=== PATIENT | female | born 1940 | race Caucasian/White ===

== ENCOUNTER 2019-05-22 11:11 | Outpatient (CLI) | payer MEDICARE, SELFPAY ==
[2019-05-22 13:20] LABS: Blood Urea Nitrogen 27 mg/dL (7-17); Calcium 9.2 mg/dL (8.4-10.2); Carbon Dioxide 25 mmol/L (22-30); Chloride 102 mmol/L (98-107); Estimated Glomerular Filt Rate > 60; Glucose 160 mg/dL (65-105); Potassium 3.3 mmol/L (3.4-5.0); Sodium 138 mmol/L (137-145)
== END 2019-05-22 11:12 | disposition home or self-care (01) ==
LOC: ANHWCLAB 11:15
PROVIDERS: PCP Family Medicine; Visit Provider Internal Medicine Endocrinology, Diabetes & Metabolism
DX: E11.9 Type 2 diabetes mellitus without complications (principal)
CPT/HCPCS: 36415; 80048

== ENCOUNTER 2021-10-09 01:35 | Inpatient (IN) | payer MEDICARE, SELFPAY ==
[2021-10-09] VITALS (58 sets, daily range): BP systolic 85–152; BP diastolic 50–102; PULSE 74–133; RESP 16–33; TEMP 36.1–36.8; O2SAT 93–100; BMI 29.2
--- NOTE | ~2021-10-09 | XR_ITS ---
XR chest 1V portable 10/12/2021 16:09 Indication: Assess CHF Procedure: AP portable chest Comparison: Comparison to multiple prior studies sequentially, with oldest reviewed study dated 08/16. Findings: Heart size normal. Bilateral interstitial infiltrates of the mid and lower lungs. No pleura l effusion. No pneumothorax. No acute osseous abnormality. Impression: 1: Bilateral interstitial infiltrates of the mid and lower lungs which may represent mild edema or pn eumonia. Reviewed, dictated and finalized at location A. Impression: 1: Bilateral interstitial infiltrates of the mid and lower lungs which may repr esent mild edema or pneumonia.
--- NOTE | ~2021-10-09 | XR_ITS ---
XR chest 1V portable DATE: 10/09/2021 02:14 INDICATION: Shortness of breath TECHNIQUE: Portable AP chest on 10/09/2021 at 0209 hours COMPARISON: 03/04/2016 PA and lateral chest FINDINGS: There is pulmonary vascular congestion. There is mild prominence of minor fissure consisten t with subpleural edema. Bilateral Maru B-lines, likely due to pulmonary edema. Bilateral predomina ntly mid and particularly lower lung zone infiltrates which may be due to pulmonary edema. Pneumonia or aspiration pneumonitis are not excluded. Borderline heart size. Small pleural effusions. No pneumothorax. Diffuse osteopenia. IMPRESSION: Pulmonary vascular congestion, subpleural and pulmonary interstitial edema and bilateral primarily central and lower lung infiltrates, suggesting some edema. Pneumonia and aspiration pneumon itis are not excluded. Reviewed, dictated and finalized at location A. IMPRESSION: Pulmonary vascular congestion, subpleural and pulmonary interstitia l edema and bilateral primarily central and lower lung infiltrates, suggesting some edema. Pneumonia and aspiration pneumonitis are not excluded.
--- NOTE | 2021-10-09 01:38 | ECG_ITS ---
Measurements Intervals [place] Rate: 76 P: 73 AR: 191 QRS: 3 QRSD: 102 T: 67 QT: 371 QTc: 418 Interpretive Statements SINUS RHYTHM NONSPECIFIC ST ABNORMALITY NO PREVIOUS ECG AVAILABLE FOR COMPARISON Electronically Signed On 10-09-2021 7:23:11 CDT by Wali Simmons M.D.
--- NOTE | 2021-10-09 01:52 | PC.NURSE ---
Patient o2 decreased to 86% on RA, placed on 2L via NC and her O2 increased to 90% so O2 increased to 4L and O2 increased to 96%. ERP aware.
--- NOTE | 2021-10-09 02:14 | ED.GENADULT ---
HPI - General Adult General Chief complaint: Shortness of Breath/Dyspnea Stated complaint: SOB Time Seen by Provider: 10/09/21 01:46 History of Present Illness HPI narrative: This is an 81-year-old female presenting ED with shortness of breath. Patient says she had a CVA 3 weeks ago. She has been doing well since then but starting say she started having trouble breathing and associated with chest tightness. She has taken albuterol inhalers at home with no benefit. The patient denies fever, chills, productive cough, lower extremity edema, history of blood clots, recent trauma or surgery or any history of cancer. Related Data Home Medications Medication Instructions Recorded Confirmed aspirin 81 mg tablet,delayed 81 mg PO DAILY 01/16/19 09/19/21 release calcium carbonate 600 mg calcium 600 mg PO DAILY 01/16/19 09/19/21 (1,500 mg) tablet (Calcium) cholecalciferol (vitamin D3) 50 50 mcg PO DAILY 01/16/19 09/19/21 mcg (2,000 unit) capsule coenzyme Q10 10 mg capsule (Co 10 mg PO ONCE 01/16/19 09/19/21 Q-10) isosorbide mononitrate 60 mg 60 mg PO DAILY 01/16/19 09/19/21 tablet,extended release 24 hr mecobalamin (vitamin B12) 1,000 1,000 mcg sublingual DAILY 01/16/19 09/19/21 mcg disintegrating tablet,sublingual metoprolol tartrate 50 mg tablet 50 mg PO Q12H 01/16/19 09/19/21 (Lopressor) pantoprazole 40 mg tablet,delayed 40 mg PO QAM 12/02/19 09/19/21 release magnesium oxide 400 mg PO DAILY 10/26/20 09/19/21 mupirocin 2 % topical ointment 1 applic topical TID PRN 06/21/21 09/19/21 Allergies Allergy/AdvReac Type Severity Reaction Status Date / Time clavulanic acid Allergy Intermediate PURITIS Verified 09/14/21 11:36 amoxicillin Allergy Unknown Unknown Verified 09/14/21 11:36 amphetamine Allergy Unknown possible Verified 09/14/21 11:36 cause of pruritis, no rash- mild cefuroxime Allergy Unknown Unknown Verified 09/14/21 11:36 erythromycin base Allergy Unknown Unknown Verified 09/14/21 11:36 lodoxamide Allergy Unknown Nausea Verified 09/14/21 11:36 Review of Systems Review of Systems: CONSTITUTIONAL: Denies night sweats. EYES: No eye pain ENT: Denies rhinorrhea CARDIOVASCULAR: Denies palpitations RESPIRATORY: Denies hemoptysis GASTROINTESTINAL: Denies hematemesis GENITOURINARY: Denies hematuria. SKIN: Denies rash MUSCULOSKELETAL: Denies myalgia. NEUROLOGIC: Denies weakness. PSYCHIATRIC: Denies delusions [facility] Past Medical History Medical History Arthritis Asthma Atherosclerotic heart disease of [place] coronary artery with other forms of angina pectoris Back pain BMI 33.0-33.9,adult Cataracts, bilateral Diabetic neuropathy Dysfunction of left eustachian tube Gastro-esophageal reflux disease without esophagitis Hypertension Hypokalemia Localized dermatitis Major depressive disorder, single episode, unspecified Metabolic syndrome Mitral insufficiency and aortic stenosis echo 10-21 moderate OR and 1.82 cm2 Open wound of index finger Other seborrheic keratosis Post-menopausal Pure hyperglyceridemia Pure sensory lacunar syndrome Restless legs syndrome SOB (shortness of breath) Stroke Trigger finger, left middle finger Type 2 diabetes mellitus with hyperglycemia Surgical History Surgical History H/O cardiac catheterization H/O sinus surgery H/O: hysterectomy History of appendectomy History of carpal tunnel release Hx of cholecystectomy Family History Family History Mother Hypertension Other Asthma Family history of arthritis Social History Social History Smoking status: Never smoker Alcohol intake: current Alcohol use details: Rarely drinks alchohol Substance use: never Exam Narrative: APPEARANCE: No apparent distre
[2021-10-09 02:46] LABS: Basophils Absolute Auto 0.1 K/mm3 (0.0-0.1); Basophils Percent Auto 0.5 % (0.2-1.2); Eosinophils Absolute Auto 0.2 K/mm3 (0-0.3); Eosinophils Percent Auto 2.3 % (0-4.4); Hematocrit 36.3 % (37.0-47.0); Hemoglobin 11.6 g/dL (12.0-15.0); Immature Granulocyte Absolute 0.04 K/mm3 (0.00-0.031); Immature Granulocyte Percent A 0.4 % (0-0.5); Lymphocytes Absolute Auto 1.42 K/mm3 (0.9-3.2); Lymphocytes Percent Auto 14.7 % (18.3-44.2); Mean Corpuscular Hemoglobin 26.9 pg (26-34); Mean Corpuscular Volume 84.2 fl (80-100); Mean Platelet Volume 9.6 fl (7.4-10.4); Monocytes Absolute Auto 0.3 K/mm3 (0.1-0.6); Monocytes Percent Auto 3.5 % (2.6-8.5); Neutrophils Absolute Auto 7.6 K/mm3 (1.3-6.7); Neutrophils Percent Auto 78.6 % (45.5-73.1); Platelet Count Result 261 k/mm3 (150-375); Red Blood Count 4.31 M/mm3 (4.2-5.4); Red Cell Distribution Width 13.2 % (11.5-14.5); White Blood Count 9.7 K/mm3 (4.5-10.0)
[2021-10-09 03:09] LABS: NT Pro B Type Natriuretic Pept 461 pg/mL (5-100)
[2021-10-09 03:10] LABS: D Dimer 0.86 ug/mL (<0.48)
[2021-10-09 03:19] LABS: Troponin I < 0.012 ng/mL (0.000-0.034)
[2021-10-09 03:24] LABS: SARS-CoV-2 RNA PCR Negative
[2021-10-09 03:35] LABS: Alanine Aminotransferase 62 U/L (6-35); Alkaline Phosphatase 130 U/L (38-126); Anion Gap 10 mmol/L (8-16); Aspartate Amino Transferase 58 U/L (14-36); Bilirubin,Total 0.6 mg/dL (0.2-1.3); Blood Urea Nitrogen 23 mg/dL (7-17); Carbon Dioxide 26 mmol/L (22-30); Chloride 99 mmol/L (98-107); Estimated CRCL calculation 57 ml/min; Estimated Glomerular Filt Rate > 60; Glucose 196 mg/dL (65-110); Potassium 3.9 mmol/L (3.4-5.0); Sodium 135 mmol/L (137-145)
[2021-10-09] MEDS: FUROSEMIDE INJ 40 MG/4 ML VIAL IV PUSH (07:00)
--- NOTE | 2021-10-09 08:04 | ECG_ITS ---
Measurements Intervals [place] Rate: 126 P: [place]: 0 QRS: 1 QRSD: 101 T: 71 QT: 309 QTc: 447 Interpretive Statements ATRIAL FIBRILLATION WITH RAPID VENTRICULAR RESPONSE NONSPECIFIC ST & T-WAVE ABNORMALITY ABNORMAL RHYTHM ECG COMPARED TO ECG 10/09/2021 01:46:19 ATRIAL FIBRILLATION NOW PRESENT Electronically Signed On 10-09-2021 14:45:58 CDT by Wali Simmons M.D.
--- NOTE | 2021-10-09 08:18 | PC.NURSE ---
Spoke with Dr. Bridges, he is unsure who is covering for this pt. He will check and have someone come to ed to see this pt.
--- NOTE | 2021-10-09 09:13 | PM.IMHP ---
H&P: HPI History of Present Illness Date/Time: 10/09/21 09:13 Chief Complaint: Palpitations, chest tightness, shortness of breath Narrative: 81-year-old female with past medical history significant for coronary artery disease and stroke about 3 weeks ago is presenting with a 2 to three-day history of generally feeling unwell. She reports some shortness of breath and chest tightness, does not appear to be exertional or postprandial. She denies headaches or vision changes. She denies nausea vomiting or diarrhea. No fevers or chills. Looking over records from [place], she appears to have paroxysmal atrial fibrillation essentially controlled on metoprolol at her discharge from her CVA. She reports no residual deficits from the CVA. She did undergo an interventional revascularization procedure that was successful. In the ER, the patient found to be in AFib with RVR. Chest x-ray did show some vascular congestion as well. She was given Lasix and Lopressor 5 mg IV as well as metoprolol 50 mg p.o. and symptoms appeared to resolve. Cardiology was consulted and discontinued metoprolol in favor of sotalol with a goal of keeping the patient in sinus rhythm as opposed AFib Review of Systems Review of Systems: 12 point review of systems was assessed and was negative except as noted in the HPI PMFSH Past Medical History Medical History Arthritis Asthma Atherosclerotic heart disease of [place] coronary artery with other forms of angina pectoris Back pain BMI 33.0-33.9,adult Cataracts, bilateral Diabetic neuropathy Dysfunction of left eustachian tube Gastro-esophageal reflux disease without esophagitis Hypertension Hypokalemia Localized dermatitis Major depressive disorder, single episode, unspecified Metabolic syndrome Mitral insufficiency and aortic stenosis echo 10-21 moderate [place] and 1.82 cm2 Open wound of index finger Other seborrheic keratosis Post-menopausal Pure hyperglyceridemia Pure sensory lacunar syndrome Restless legs syndrome SOB (shortness of breath) Stroke Trigger finger, left middle finger Type 2 diabetes mellitus with hyperglycemia Surgical History Surgical History H/O cardiac catheterization H/O sinus surgery H/O: hysterectomy History of appendectomy History of carpal tunnel release Hx of cholecystectomy Family History Family History Mother Hypertension Other Asthma Family history of arthritis Social History Social History Smoking status: Never smoker Alcohol intake: current Alcohol use details: Rarely drinks alchohol Substance use: never Spiritual care concerns: No Meds Home Medications and Allergies Home Medications Medication Instructions Recorded Confirmed Type calcium carbonate 600 mg calcium 600 mg PO DAILY 01/16/19 10/09/21 History (1,500 mg) tablet (Calcium) cholecalciferol (vitamin D3) 50 50 mcg PO DAILY 01/16/19 10/09/21 History mcg (2,000 unit) capsule coenzyme Q10 10 mg capsule (Co 10 mg PO ONCE 01/16/19 10/09/21 History Q-10) isosorbide mononitrate 60 mg 60 mg PO DAILY 01/16/19 10/09/21 History tablet,extended release 24 hr mecobalamin (vitamin B12) 1,000 1,000 mcg sublingual DAILY 01/16/19 10/09/21 History mcg disintegrating tablet,sublingual metoprolol tartrate 50 mg tablet 50 mg PO Q12H 01/16/19 10/09/21 History (Lopressor) lancets 33 gauge #200 ea 11/20/19 09/19/21 Rx pantoprazole 40 mg tablet,delayed 40 mg PO QAM 12/02/19 10/09/21 History release fluticasone propionate 50 2 spray intranasal DAILY #16 grams 04/22/20 10/09/21 Rx mcg/actuation nasal spray,suspension clopidogrel 75 mg tablet See Rx Instructions .Route 09/28/20 10/09/21 Rx .COMPLEX #90 tabs blood sugar diagnostic (Contour #200 ea 10/26/2009/03
[2021-10-09] MEDS: METOPROLOL TARTRATE 50 MG TAB PO (09:16)
[2021-10-09] MEDS: METOPROLOL TARTRATE INJ 5 MG/5 ML VIAL IV PUSH (09:16)
--- NOTE | 2021-10-09 10:04 | PC.NURSE ---
Still awaiting bed assignment and for hospitalist to see pt.
--- NOTE | 2021-10-09 10:45 | ADMGEN ---
This patient, Ashlyn Graham, was admitted to [facility] Room 313-01 at 1040. Patient/family oriented to hospital policies and general routines including ID bracelet, bed and alarms, visiting hours, pain management, procedures, bathroom and other care routines, personal items, smoking policy, room service/diet, and visiting hours. Information on how to activate the Rapid Response Team has been discussed. Patient/Family are encouraged to report perceived risks to care and to ask questions if they do not understand what they are told or what they should do.
[2021-10-09 11:27] LABS: Glucose Point of Care 254 mg/dl (65-105)
[2021-10-09 14:03] LABS: Hemoglobin A1C 8.7 % (<5.7)
--- NOTE | 2021-10-09 14:28 | PM.CNCAR ---
Assessment and Plan Assessment and plan (1) Atrial fibrillation: Code(s): I48.91 - Unspecified atrial fibrillation Status: Acute Plan This is an 81-year-old lady with longstanding coronary disease as mentioned above with stenting of her circumflex about 6 years ago. She unfortunately suffered a stroke last month and fortunately was able to be transferred emergently over to [place] where she underwent interventional revascularization of her middle cerebral artery and has minimal if any residual deficit. Interestingly she was discharged from [place] in atrial fibrillation which was controlled with metoprolol. Upon arrival here she actually was in sinus rhythm last night and is back in atrial fibrillation now. Her AFib is obviously paroxysmal. At this point I would take her back off of clopidogrel and place her on apixaban 5 mg q.12 hours. I will also substitute her metoprolol for sotalol in hopes of maintaining sinus rhythm more effectively. We will follow her with you during this hospital stay and anticipate at least several days in the hospital as restart her on more aggressive medical therapy for atrial fib. She has been anticoagulated for several weeks up until this brief interruption in anticoagulation however if she is spontaneously going back and forth between sinus and AFib we should in my view try to maintain sinus rhythm at this time Wali Simmons MD [facility] History of Present Illness History of Present Illness Consult date/time: 10/09/21 14:28 Consult reason: atrial fibrillation Reason For Visit: Hypoxic Respiratory Failure Narrative: This is a 81-year-old woman who I have not seen previously myself. She has a history of coronary artery disease and paroxysmal atrial fibrillation and was admitted to this hospital last night with some shortness of breath that began accumulating for several days prior to coming in. She states that she has been noticing gradual increasing shortness of breath over the last couple of days and had some significant air hunger last evening and eventually came to the emergency room for evaluation. The patient has no symptoms currently she is wearing nasal cannula oxygen feels like she is breathing relatively well. She was seen in the emergency room and appeared to have some congestive heart failure with some bibasilar pulmonary congestion on exam and on x-ray. She was in sinus rhythm on arrival here but since arrival has gone in atrial fib with a moderate ventricular response. She is unaware of this and does not have the sense of palpitations or irregular heart beating. She sees my partner, Dr. Lay with a longstanding history of coronary artery disease. She has coronary disease dating back to 2015 at which time she presented with acute coronary syndrome and underwent stenting of her circumflex. She does have some other mild diffuse coronary disease and has been managed in our office since then. I believe her last appointment with Dr. Villareal was in March of this year. She unfortunately was hospitalized on September 16 with a stroke. She had an acute middle cerebral artery occlusion and was airlifted to [place] where she underwent emergency percutaneous revascularization of the middle cerebral artery. She presented with AI hemiplegia and 5th facial droop and difficulty speaking. During that presentation she was noted to be in atrial fib with RVR presumably this was a cardioembolic event. In this situation at [place] she was transition from anti-platelet therapy to apixaban 5 mg q.12 hours. She was placed on some amiodarone over there initially for rate control but that was weaned off and titrated back to metoprolol for rate control. Follow-up with our office was scheduled at the time of discharge. That has not yet occurred. At the time of this consultation she has been placed back on clopidogrel her anti coagulation medication has not been ordered and I am seeing her in consultation she feels relative
[2021-10-09 17:57] LABS: Glucose Point of Care 309 mg/dl (65-105)
[2021-10-09] MEDS: INSULIN ASPART (*BKC) 100 UNITS/ML SUB-Q (18:43)
[2021-10-09] MEDS: ATORVASTATIN 40 MG TABLET 80 MG PO (20:30)
[2021-10-09] MEDS: APIXABAN 5 MG TABLET PO (20:30)
[2021-10-09] MEDS: VENLAFAXINE HCL 75 MG TABLET BY MOUTH (20:31)
[2021-10-09] MEDS: SOTALOL HCL 80 MG TABLET PO (20:31)
[2021-10-09 21:17] LABS: Glucose Point of Care 299 mg/dl (65-105)
[2021-10-10] VITALS (9 sets, daily range): BP systolic 109–143; BP diastolic 65–119; PULSE 78–132; RESP 18–20; TEMP 36.3–36.7; O2SAT 94–100
[2021-10-10 07:59] LABS: Glucose Point of Care 200 mg/dl (65-105)
[2021-10-10] MEDS: CHOLECALCIFEROL 1,000 UNITS TABLET 2000 UNITS PO (09:20)
--- NOTE | 2021-10-10 09:20 | PM.PNCARD ---
Progress Note: A&P Assessment and Plan (1) Paroxysmal atrial fibrillation: Code(s): I48.0 - Paroxysmal atrial fibrillation Status: Acute Plan This is an 81-year-old lady who suffered a cardioembolic stroke last month. She has paroxysmal atrial fibrillation still predominantly in AFib. Transitioned to sotalol yesterday. As stated in my note was actually in sinus rhythm upon arrival here. Hopefully the [place] will result in more propensity for sinus rhythm that atrial fib. Systemic anticoagulation with apixaban is very important to be maintained. As her coronary disease has been stable for a long time anti-platelet therapy has been discontinued for now. Wali Simmons MD [facility] Subjective Date/time seen: Date of service: 10/10/21 09:20 Interval history: Follow-up visit in this 81-year-old woman with: Chronic coronary artery disease with PCI to her circumflex about 6 years ago. Recent development of atrial fib presenting with a cardioembolic CVA last month. She underwent successful and dramatic emergency revascularization at [place] with almost no residual neurological sequelae. Presented here with some shortness of breath probably mild CHF related to being in atrial fibrillation most of the time. In as mentioned in my note she was actually in sinus rhythm upon arrival so I have transitioned her antiarrhythmic medication to sotalol and continue systemic anticoagulation with apixaban. Today the patient feels well she is sleeping slightly head of the bed elevated when I came in the room to see her offers no complaints and feels well. Is in rate controlled atrial fibrillation at this time. Believe she has only received 1 dose of sotalol as of this moment Exam Const: General: comfortable and no acute distress Other: Elderly lady sleeping in bed completely relaxed when I entered the room to see her upon awakening feels well has no complaints HENMT: Mouth: Yes moist mucous membranes Eyes: Sclera: sclerae normal Pupils: Equal, round and reactive pupils present Neck: Neck: supple and no JVD Resp: Effort & Inspection: normal respiratory effort Other: Scant crackle remains at the left base Cardio: Rhythm: abnormal rhythm irregularly irregular Other: Soft holosystolic MR murmur is audible GI: GI Palp: Yes Soft to palpation Auscultation: normal bowel sounds Skin: General skin exam: normal color Neuro: Other: Alert and oriented Extrem: Other: No edema Objective Data Vital Signs Vital Signs: Vital Signs - 24 hr 10/09/21 10:27 10/09/21 11:06 10/09/21 11:17 Temperature 36.1 C L Pulse Rate 121 H 125 H Respiratory Rate 16 18 Blood Pressure 105/79 105/58 L Pulse Oximetry 97 98 98 Oxygen Delivery Nasal Cannula Oxygen Flow Rate 4 10/09/21 12:00 10/09/21 14:00 10/09/21 16:00 Temperature 36.5 C Pulse Rate 113 H 120 H 122 H Respiratory Rate 18 Blood Pressure 107/76 Pulse Oximetry 100 Oxygen Delivery Oxygen Flow Rate 10/09/21 20:25 10/09/21 20:31 10/09/21 20:00 Temperature 36.8 C Pulse Rate 81 120 H 123 H Respiratory Rate 20 Blood Pressure 103/61 Pulse Oximetry 95 Oxygen Delivery Oxygen Flow Rate 10/09/21 20:30 10/10/21 00:00 10/10/21 04:00 Temperature Pulse Rate 106 H 94 Respiratory Rate Blood Pressure Pulse Oximetry 95 Oxygen Delivery Nasal Cannula Oxygen Flow Rate 2 10/10/21 06:00 Temperature 36.6 C Pulse Rate 78 Respiratory Rate 20 Blood Pressure 111/65 Pulse Oximetry 94 Oxygen Delivery Oxygen Flow Rate Intake/Output Intake/Output: Intake & Output 10/07/21 10/08/21 10/09/21 10/10/21 23:59 23:59 23:59 23:59 Intake Total 444 240 Output Total 2500 250 Balance -2055 -10 Meds/Results Medications: Active Medications Generic Name Dose Route Start Last Admin Trade Name Freq PRN Reason Stop Dose Admin Apixaban 5 mg 10/09/21 21:00 10/09/21 20:30 Apixaban 5 Mg Tablet PO
[2021-10-10] MEDS: ISOSORBIDE MONONITRATE 60 MG TAB.ER.24H PO (09:21)
[2021-10-10] MEDS: CALCIUM CARBONATE (OSCAL) 500 MG TABLET PO (09:21)
[2021-10-10] MEDS: rOPINIRole HCL 1 MG TABLET 3 MG PO (09:21)
[2021-10-10] MEDS: SOTALOL HCL 80 MG TABLET PO ×2 (09:21→21:15)
[2021-10-10] MEDS: CYANOCOBALAMIN 1,000 MCG TABLET 1000 MCG PO (09:21)
[2021-10-10] MEDS: VENLAFAXINE HCL 75 MG TABLET BY MOUTH ×2 (09:22→21:16)
[2021-10-10] MEDS: APIXABAN 5 MG TABLET PO ×2 (09:22→21:16)
[2021-10-10] MEDS: FLUTICASONE PROPIONATE 0.05% NA SPR 16 GM BTL (*BKC) 2 SPRAY NASAL (09:22)
[2021-10-10] MEDS: MAGNESIUM OXIDE 400 MG TABLET PO (09:22)
[2021-10-10] MEDS: PANTOPRAZOLE 40 MG TABLET PO (09:22)
[2021-10-10] MEDS: INSULIN GLARGINE (*BKC) 100 UNITS/ML 20 UNITS SUB-Q (09:24)
--- NOTE | 2021-10-10 09:47 | PM.DS ---
DS: Discharge Diagnosis Discharge Diagnosis (1) Paroxysmal atrial fibrillation: Code(s): I48.0 - Paroxysmal atrial fibrillation Status: Acute Assessment and Plan: appreciate cardiology recs, continue sotalol, goal of keeping patient NSR, cont eliquis (2) Atherosclerotic heart disease of [place] coronary artery with other forms of angina pectoris: Code(s): I25.118 - Atherosclerotic heart disease of [place] coronary artery with other forms of angina pectoris Status: Acute Assessment and Plan: cont lipitor, plavix, imdur (3) Gastro-esophageal reflux disease without esophagitis: Code(s): K21.9 - Gastro-esophageal reflux disease without esophagitis Status: Acute Assessment and Plan: cont ppi, controlled (4) Major depressive disorder, single episode, unspecified: Code(s): F32.9 - Major depressive disorder, single episode, unspecified Status: Acute Assessment and Plan: Continue Effexor (5) Restless legs syndrome: Code(s): G25.81 - Restless legs syndrome Status: Acute Assessment and Plan: Continue ropinirole (6) Type 2 diabetes mellitus with hyperglycemia: Qualifiers: Diabetes mellitus skilled nursing insulin use: 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 Qualified Code(s): E11.65 - Type 2 diabetes mellitus with hyperglycemia Code(s): E11.65 - Type 2 diabetes mellitus with hyperglycemia Status: Acute Assessment and Plan: Accu-Cheks plus sliding scale insulin, check A1c (7) Mixed hyperlipidemia: Code(s): E78.2 - Mixed hyperlipidemia Status: Acute Assessment and Plan: Continue Lipitor (8) Essential (primary) hypertension: Code(s): I10 - Essential (primary) hypertension Status: Acute Assessment and Plan: Controlled Plan Full code DVT prophylaxis with Eliquis DS: Summary Time Spent with Patient Time attestation: Total time spent providing and/or coordinating discharge services: Exam Narrative: General: No acute distress, alert and oriented per baseline HEENT: Atraumatic, normocephalic, mucous membranes moist CV: Regular rate and rhythm, S1, S2 Lungs: Clear to auscultation bilaterally, no rales or crackles noted, no wheezes, good air entry Abdomen: Soft, nontender, nondistended Extremities: Normal to inspection Skin: No rashes noted, no lesions or wounds seen Psych: Euthymic, normal affect DS: Data Data Completed and Pending Labs on day of discharge: Labs from last 24 hours 10/10/21 10/09/21 10/09/21 07:49 20:33 17:51 POC Capillary Glucose 200 H 299 H 309 H Hemoglobin A1c 10/09/21 10/09/21 11:22 02:38 POC Capillary Glucose 254 H Hemoglobin A1c 8.7 H Discharge Plan Discharge Attending physician on discharge: Jhoana Vega Consulting providers: Wali Simmons Discharging Clinician: Jhoana Vega Anticipated Discharge Date/Time: 10/10/21 09:45 Patient Disposition: Home, Self-Care Activity: as tolerated Diet: heart healthy Patient Instructions: Antibiotic Form, Apixaban (By mouth) Stand Alone Forms: General Discharge Information Follow-up/Referrals: Wali Simmons MD [Physician] - Tom Roberson DO [Primary Care Provider] - Discharge Medications: New Eliquis 5 mg Tablet 5 mg PO Q12HR 30 Days Qty: 60 0RF sotalol 80 mg Tablet 80 mg PO Q12HR 30 Days Qty: 60 0RF Continued mecobalamin (vitamin B12) 1,000 mcg tablet,disintegrating 1,000 mcg SUBLINGUAL DAILY isosorbide mononitrate 60 mg tablet extended release 24 hr 60 mg PO DAILY calcium carbonate [Calcium 600] 600 mg calcium (1,500 mg) tablet 600 mg PO DAILY cholecalciferol (vitamin D3) 50 mcg (2,000 unit) capsule 50 mcg PO DAILY coenzyme Q10 [Co Q-10] 10 mg capsule 10 mg PO ONCE magnesium oxide 400 mg magnesium capsule 400 mg PO DAILY pantoprazole 40 mg tabletmarleen
[2021-10-10 11:38] LABS: Glucose Point of Care 299 mg/dl (65-105)
[2021-10-10] MEDS: INSULIN ASPART (*BKC) 100 UNITS/ML SUB-Q ×2 (13:20→18:12)
--- NOTE | 2021-10-10 14:42 | PM.IMPN ---
Progress Note: A&P Assessment and Plan (1) Paroxysmal atrial fibrillation: Code(s): I48.0 - Paroxysmal atrial fibrillation Status: Acute Assessment and Plan: appreciate cardiology recs, continue sotalol, goal of keeping patient NSR, cont eliquis (2) Atherosclerotic heart disease of [place] coronary artery with other forms of angina pectoris: Code(s): I25.118 - Atherosclerotic heart disease of [place] coronary artery with other forms of angina pectoris Status: Acute Assessment and Plan: cont lipitor, plavix, imdur (3) Gastro-esophageal reflux disease without esophagitis: Code(s): K21.9 - Gastro-esophageal reflux disease without esophagitis Status: Acute Assessment and Plan: cont ppi, controlled (4) Major depressive disorder, single episode, unspecified: Code(s): F32.9 - Major depressive disorder, single episode, unspecified Status: Acute Assessment and Plan: Continue Effexor (5) Restless legs syndrome: Code(s): G25.81 - Restless legs syndrome Status: Acute Assessment and Plan: Continue ropinirole (6) Type 2 diabetes mellitus with hyperglycemia: Qualifiers: Diabetes mellitus 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 insulin 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 Qualified Code(s): E11.65 - Type 2 diabetes mellitus with hyperglycemia Code(s): E11.65 - Type 2 diabetes mellitus with hyperglycemia Status: Acute Assessment and Plan: Accu-Cheks plus sliding scale insulin, check A1c (7) Mixed hyperlipidemia: Code(s): E78.2 - Mixed hyperlipidemia Status: Acute Assessment and Plan: Continue Lipitor (8) Essential (primary) hypertension: Code(s): I10 - Essential (primary) hypertension Status: Acute Assessment and Plan: Controlled Plan Full code DVT prophylaxis with Eliquis Subjective Date/time seen: 10/10/21 14:42 Interval history: Patient denies any palpitations or symptoms at this time, eager to go home. No overnight events noted. No chest pain or shortness of breath. No nausea, vomiting or diarrhea. No fevers or chills. Review of Systems Review of Systems: 12 point review of systems was assessed and was negative except as noted in the HPI Exam Narrative: General: No acute distress, alert and oriented per baseline HEENT: Atraumatic, normocephalic, mucous membranes moist CV: Irregularly irregular, S1, S2 Lungs: Clear to auscultation bilaterally, no rales or crackles noted, no wheezes, good air entry Abdomen: Soft, nontender, nondistended Extremities: Normal to inspection Skin: No rashes noted, no lesions or wounds seen Psych: Euthymic, normal affect Objective Data Vital Signs Vital Signs: Vital Signs - 24 hr 10/09/21 16:00 10/09/21 20:25 10/09/21 20:31 Temperature 98.3 F Pulse Rate 122 H 81 120 H Respiratory Rate 20 Blood Pressure 103/61 Pulse Oximetry 95 Oxygen Delivery Oxygen Flow Rate 10/09/21 20:00 10/09/21 20:30 10/10/21 00:00 Temperature Pulse Rate 123 H 106 H Respiratory Rate Blood Pressure Pulse Oximetry 95 Oxygen Delivery Nasal Cannula Oxygen Flow Rate 2 10/10/21 04:00 10/10/21 06:00 10/10/21 08:00 Temperature 98 F Pulse Rate 94 78 78 Respiratory Rate 20 Blood Pressure 111/65 Pulse Oximetry 94 Oxygen Delivery Oxygen Flow Rate 10/10/21 08:00 10/10/21 14:00 Temperature 97.3 F L Pulse Rate 78 119 H Respiratory Rate 20 20 Blood Pressure 143/119 H Pulse Oximetry 94 97 Oxygen Delivery Nasal Cannula Oxygen Flow Rate 2 Intake/Output Intake/Output: Intake & Output 10/07/21 10/08/21 10/09/21 10/10/21 23:59 23:59 23:59 23:59 Intake Total 444 462 Output Total 2500 250 Balance -2056 212 Meds/Results Medications: Active Medications Generic Name Dose Route Start Last Admin Trade Name Freq PRN Reason Stop Dose Admin Apixaban 5 mg 10/09/21 21:00
[2021-10-10 17:50] LABS: Glucose Point of Care 223 mg/dl (65-105)
[2021-10-10] MEDS: ATORVASTATIN 40 MG TABLET 80 MG PO (21:15)
[2021-10-10 21:22] LABS: Glucose Point of Care 223 mg/dl (65-105)
[2021-10-11] VITALS (12 sets, daily range): BP systolic 120–138; BP diastolic 69–96; PULSE 66–140; RESP 16–20; TEMP 36.1–36.5; O2SAT 96–98
[2021-10-11] MEDS: ISOSORBIDE MONONITRATE 60 MG TAB.ER.24H PO (07:46)
[2021-10-11] MEDS: CHOLECALCIFEROL 1,000 UNITS TABLET 2000 UNITS PO (07:46)
[2021-10-11] MEDS: CYANOCOBALAMIN 1,000 MCG TABLET 1000 MCG PO (07:46)
[2021-10-11] MEDS: rOPINIRole HCL 1 MG TABLET 3 MG PO (07:46)
[2021-10-11] MEDS: CALCIUM CARBONATE (OSCAL) 500 MG TABLET PO (07:47)
[2021-10-11] MEDS: PANTOPRAZOLE 40 MG TABLET PO (07:47)
[2021-10-11] MEDS: SOTALOL HCL 80 MG TABLET PO ×2 (07:47→20:32)
[2021-10-11] MEDS: APIXABAN 5 MG TABLET PO ×2 (07:47→20:32)
[2021-10-11] MEDS: MAGNESIUM OXIDE 400 MG TABLET PO (07:47)
[2021-10-11] MEDS: INSULIN GLARGINE (*BKC) 100 UNITS/ML 20 UNITS SUB-Q (07:48)
[2021-10-11] MEDS: FLUTICASONE PROPIONATE 0.05% NA SPR 16 GM BTL (*BKC) 2 SPRAY NASAL (07:48)
[2021-10-11] MEDS: VENLAFAXINE HCL 75 MG TABLET BY MOUTH ×2 (07:48→20:32)
[2021-10-11 07:49] LABS: Glucose Point of Care 234 mg/dl (65-105)
[2021-10-11] MEDS: INSULIN ASPART (*BKC) 100 UNITS/ML SUB-Q ×4 (07:49→16:59)
--- NOTE | 2021-10-11 09:40 | PM.PNCARD ---
Progress Note: A&P Assessment and Plan (1) Paroxysmal atrial fibrillation: Code(s): I48.0 - Paroxysmal atrial fibrillation Status: Acute Assessment and Plan: Diagnosed with atrial fibrillation when she entered the hospital with an embolic stroke last month. Her EKG on admission demonstrates sinus rhythm and she subsequently returned to atrial fibrillation and was placed on sotalol in hopes of restoring sinus rhythm once again. Unfortunately, she has not yet chemically converted to sinus rhythm after4 doses of sotalol. I had a very lengthy discussion with the patient and her at the bedside regarding management options moving forward. We discussed the concept of pursuing a LOIS/CV tmorrow if she has not converted to sinus rhythm by that time. Patient's had numerous questions and concerns all of which were addressed to his satisfaction. Plan to proceed with LOIS/CV tomorrow. NPO after MN in anticipation of this Continue sotalol at current dose (QTc 470msec, which is stable and acceptable). Electrolytes WNL Continue apixaban Obtain EKG 2 hours after p.m. dose of sotalol BMP, mag in a.m. Subjective Date/time seen: 10/11/21 09:40 Cardiology follow up for CAD, atrial fibrillation. Patient remains in atrial fibrillation with RVR rate predominantly in the 120's-130's. She is asymptomatic with this. As of this morning she has rec'd 4 doses of sotalol. Review of Systems Constitutional: Constitutional: Reports no additional constitutional complaints Eyes: Eyes: Reports no additional eye complaints ENT: Reports system reviewed and no additional complaints, except as documented Cardiovascular: Cardiovascular: Reports as per HPI and Reports dyspnea Respiratory: Respiratory: Reports dyspnea Gastrointestinal: Gastrointestinal: Reports no additional gastrointestinal complaints Musculoskeletal: Musculoskeletal: Reports no additional musculoskeletal complaints Integumentary/Breasts: Skin/Breast: Reports system reviewed and no additional complaints, except as docu Neurologic: Reports as per HPI Endocrine: Endocrine: Reports no additional endocrine complaints Hematologic/Lymphatic: Hematologic/Lymphatic: Reports no additional hematologic/lymphatic complaints Allergic/Immunologic: Allergic/Immunologic: Reports no additional allergic/immunologic complaints Exam Const: General: comfortable and no acute distress Other: Elderly lady sitting up in bed. Appears younger than stated age. Comfortable, no acute distress. HENMT: Mouth: Yes moist mucous membranes Eyes: Sclera: sclerae normal Pupils: Equal, round and reactive pupils present Neck: Neck: supple and no JVD Carotids: normal carotid upstroke and no bruits Resp: Effort & Inspection: normal respiratory effort Auscultation: clear to auscultation bilaterally Cardio: Rate: tachycardic Rhythm: abnormal rhythm irregularly irregular Heart sounds: Murmur heart sound present systolic GI: Auscultation: normal bowel sounds Skin: General skin exam: normal color Neuro: Cranial nerves: Yes Equal, round and reactive pupils present Other: Alert and oriented Extrem: General: normal to inspection Other: No edema Objective Data Vital Signs Vital Signs: Vital Signs - 24 hr 10/10/21 14:00 10/10/21 16:00 10/10/21 21:15 Temperature 36.3 C L Pulse Rate 119 H 119 H 119 H Respiratory Rate 20 Blood Pressure 143/119 H Pulse Oximetry 97 Oxygen Delivery 10/10/21 22:00 10/10/21 20:00 10/11/21 00:00 Temperature 36.7 C Pulse Rate 113 H 132 H 114 H Respiratory Rate 18 Blood Pressure 109/83 Pulse Oximetry 100 Oxygen Delivery 10/11/21 04:00 10/11/21 06:00 10/11/21 07:44 Temperature 36.5 C Pulse Rate 105 H 112 H 133 H Respiratory Rate 20 16 Blood Pressure 125/96 H 120/92 H Pulse Oximetry 96 98 Oxygen Delivery 10/11/21 07:47 10/11/21 07:57 Temperature Pulse Rate 133 H Respiratory Rate
--- NOTE | 2021-10-11 09:57 | ECG_ITS ---
Measurements Intervals [place] Rate: 125 P: [place]: 0 QRS: -16 QRSD: 89 T: 13 QT: 325 QTc: 470 Interpretive Statements ATRIAL FIBRILLATION WITH RAPID VENTRICULAR RESPONSE NONSPECIFIC ST AND T ABNORMALITY COMPARED TO ECG 10/09/2021 08:08:48 NO SIGNIFICANT CHANGE Electronically Signed On 10-11-2021 14:36:01 CDT by Wali Simmons M.D.
[2021-10-11 10:40] LABS: Magnesium 1.7 mg/dL (1.6-2.3)
[2021-10-11 10:42] LABS: Anion Gap 10 mmol/L (8-16); Blood Urea Nitrogen 18 mg/dL (7-17); Calcium 8.8 mg/dL (8.4-10.2); Carbon Dioxide 26 mmol/L (22-30); Chloride 103 mmol/L (98-107); Estimated CRCL calculation 57 ml/min; Estimated Glomerular Filt Rate > 60; Glucose 269 mg/dL (65-110); Potassium 3.7 mmol/L (3.4-5.0); Sodium 139 mmol/L (137-145)
[2021-10-11 11:28] LABS: Glucose Point of Care 349 mg/dl (65-105)
--- NOTE | 2021-10-11 14:49 | PM.IMPN ---
Progress Note: A&P Assessment and Plan (1) Paroxysmal atrial fibrillation: Code(s): I48.0 - Paroxysmal atrial fibrillation Status: Acute Assessment and Plan: appreciate cardiology recs, continue sotalol, goal of keeping patient NSR, cont eliquis Plan is for LOIS with cardioversion tomorrow, NPO after midnight, continue sotalol and Eliquis (2) Atherosclerotic heart disease of [place] coronary artery with other forms of angina pectoris: Code(s): I25.118 - Atherosclerotic heart disease of [place] coronary artery with other forms of angina pectoris Status: Acute Assessment and Plan: cont lipitor, plavix, imdur (3) Gastro-esophageal reflux disease without esophagitis: Code(s): K21.9 - Gastro-esophageal reflux disease without esophagitis Status: Acute Assessment and Plan: cont ppi, controlled (4) Major depressive disorder, single episode, unspecified: Code(s): F32.9 - Major depressive disorder, single episode, unspecified Status: Acute Assessment and Plan: Continue Effexor (5) Restless legs syndrome: Code(s): G25.81 - Restless legs syndrome Status: Acute Assessment and Plan: Continue ropinirole (6) Type 2 diabetes mellitus with hyperglycemia: Qualifiers: Diabetes mellitus long-term insulin use: 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 Qualified Code(s): E11.65 - Type 2 diabetes mellitus with hyperglycemia Code(s): E11.65 - Type 2 diabetes mellitus with hyperglycemia Status: Acute Assessment and Plan: Accu-Cheks plus sliding scale insulin, check A1c (7) Mixed hyperlipidemia: Code(s): E78.2 - Mixed hyperlipidemia Status: Acute Assessment and Plan: Continue Lipitor (8) Essential (primary) hypertension: Code(s): I10 - Essential (primary) hypertension Status: Acute Assessment and Plan: Controlled Plan Full code DVT prophylaxis with Eliquis Subjective Date/time seen: 10/11/21 14:49 Interval history: Patient resting comfortably in bed. No overnight events noted. No chest pain or shortness of breath. No nausea, vomiting or diarrhea. No fevers or chills. Review of Systems Review of Systems: 12 point review of systems was assessed and was negative except as noted in the HPI Exam Narrative: General: No acute distress, alert and oriented per baseline HEENT: Atraumatic, normocephalic, mucous membranes moist CV: Irregularly irregular, S1, S2 Lungs: Clear to auscultation bilaterally, no rales or crackles noted, no wheezes, good air entry Abdomen: Soft, nontender, nondistended Extremities: Normal to inspection Skin: No rashes noted, no lesions or wounds seen Psych: Euthymic, normal affect Objective Data Vital Signs Vital Signs: Vital Signs - 24 hr 10/10/21 16:00 10/10/21 21:15 10/10/21 22:00 Temperature 98.0 F Pulse Rate 119 H 119 H 113 H Respiratory Rate 18 Blood Pressure 109/83 Pulse Oximetry 100 Oxygen Delivery 10/10/21 20:00 10/11/21 00:00 10/11/21 04:00 Temperature Pulse Rate 132 H 114 H 105 H Respiratory Rate Blood Pressure Pulse Oximetry Oxygen Delivery 10/11/21 06:00 10/11/21 07:44 10/11/21 07:47 Temperature 97.7 F Pulse Rate 112 H 133 H 133 H Respiratory Rate 20 16 Blood Pressure 125/96 H 120/92 H Pulse Oximetry 96 98 Oxygen Delivery 10/11/21 07:57 10/11/21 08:00 10/11/21 12:00 Temperature Pulse Rate 130 H 140 H Respiratory Rate Blood Pressure Pulse Oximetry Oxygen Delivery Room Air 10/11/21 14:00 Temperature 97.0 F L Pulse Rate 130 H Respiratory Rate 18 Blood Pressure 138/69 Pulse Oximetry 96 Oxygen Delivery Intake/Output Intake/Output: Intake & Output 10/08/21 10/09/21 10/10/21 10/11/21 23:59 23:59 23:59 23:59 Intake Total 444 684 480 Output Total 7871 250 Balance -2056 669 480 Meds/Results Medications: Active Medicatio
[2021-10-11 16:49] LABS: Glucose Point of Care 272 mg/dl (65-105)
[2021-10-11] MEDS: ATORVASTATIN 40 MG TABLET 80 MG PO (20:32)
--- NOTE | 2021-10-11 22:35 | ECG_ITS ---
Measurements Intervals [place] Rate: 135 P: [place]: 0 QRS: -5 QRSD: 86 T: 75 QT: 312 QTc: 469 Interpretive Statements ATRIAL FIBRILLATION WITH RAPID VENTRICULAR RESPONSE NONSPECIFIC ST & T-WAVE ABNORMALITY ABNORMAL RHYTHM ECG COMPARED TO ECG 10/11/2021 11:29:07 NO SIGNIFICANT CHANGES Electronically Signed On 10-12-2021 16:27:52 CDT by Radha English M.D.
[2021-10-12] VITALS (22 sets, daily range): BP systolic 82–132; BP diastolic 43–97; PULSE 59–130; RESP 14–18; TEMP 35.8–36.7; O2SAT 94–100
[2021-10-12 08:16] LABS: Glucose Point of Care 203 mg/dl (65-105)
[2021-10-12] MEDS: INSULIN GLARGINE (*BKC) 100 UNITS/ML 30 UNITS SUB-Q (08:45)
[2021-10-12] MEDS: rOPINIRole HCL 1 MG TABLET 3 MG PO (08:46)
[2021-10-12] MEDS: FLUTICASONE PROPIONATE 0.05% NA SPR 16 GM BTL (*BKC) 2 SPRAY NASAL (08:46)
[2021-10-12] MEDS: CALCIUM CARBONATE (OSCAL) 500 MG TABLET PO (08:46)
[2021-10-12] MEDS: CHOLECALCIFEROL 1,000 UNITS TABLET 2000 UNITS PO (08:47)
[2021-10-12] MEDS: SOTALOL HCL 80 MG TABLET PO ×2 (08:48→20:03)
[2021-10-12] MEDS: ISOSORBIDE MONONITRATE 60 MG TAB.ER.24H PO (08:48)
[2021-10-12] MEDS: CYANOCOBALAMIN 1,000 MCG TABLET 1000 MCG PO (08:48)
[2021-10-12] MEDS: VENLAFAXINE HCL 75 MG TABLET BY MOUTH ×2 (08:49→20:03)
[2021-10-12] MEDS: MAGNESIUM OXIDE 400 MG TABLET PO (08:49)
[2021-10-12] MEDS: PANTOPRAZOLE 40 MG TABLET PO (08:49)
[2021-10-12] MEDS: APIXABAN 5 MG TABLET PO ×2 (08:49→20:03)
[2021-10-12 10:22] LABS: Magnesium 1.7 mg/dL (1.6-2.3)
[2021-10-12 10:27] LABS: Anion Gap 11 mmol/L (8-16); Blood Urea Nitrogen 13 mg/dL (7-17); Calcium 9.3 mg/dL (8.4-10.2); Carbon Dioxide 26 mmol/L (22-30); Chloride 102 mmol/L (98-107); Estimated CRCL calculation 57 ml/min; Estimated Glomerular Filt Rate > 60; Glucose 229 mg/dL (65-110); Potassium 3.8 mmol/L (3.4-5.0); Sodium 139 mmol/L (137-145)
--- NOTE | 2021-10-12 11:30 | ECG_ITS ---
Measurements Intervals [place] Rate: 81 P: 55 [place]: 181 QRS: -8 QRSD: 104 T: 35 QT: 416 QTc: 485 Interpretive Statements SINUS RHYTHM NONSPECIFIC T-WAVE ABNORMALITY COMPARED TO ECG 10/12/2021 11:53:18 SINUS RHYTHM HAS BEEN RESTORED Electronically Signed On 10-12-2021 16:42:38 CDT by Radha English M.D.
[2021-10-12 11:40] LABS: Glucose Point of Care 210 mg/dl (65-105)
--- NOTE | 2021-10-12 12:14 | WPDHPUPDATE1 ---
History and Physical Update Update Date/Time: 10/12/21 12:14 81-year-old female who has paroxysmal atrial fibrillation at least since it was discovered at the time of her stroke on September 16. She has been anticoagulated with Eliquis 5 mg b.i.d. although she may have missed a dose or 2 early on this admission. She developed AFib RVR this admission. Metoprolol was changed to sotalol. She remains in AFib RVR. QT interval is acceptable. No history of any esophageal strictures. No loose teeth. Breathing is comfortable. History And Physical has been reviewed, including an updated exam of the patient. There are NO changes in the patient's condition. Risks, benefits, and alternatives have been discussed and questions answered. Risks include risks of anesthesia, and low but present risk of stroke. , daughter and granddaughter present. Several questions were answered to their satisfaction. Patient agrees to proceed with procedure.
--- NOTE | 2021-10-12 12:16 | WPDMODSED ---
Moderate Sedation Note-Pt Data Patient Data Diagnosis: Atrial fibrillation with a rapid ventricular response Present Complaint: Paroxysmal AFib, now persistent AFib with rapid ventricular response and congestive heart failure. History of stroke September 16 when she was discovered to have AFib Anticoagulated with Eliquis; may have missed a dose or 2 early on this admission. Patient is comfortable, no shortness of breath, NPO, no history of esophageal problems. Procedure to be performed/Plan: Sedation with anesthesia (history of sleep apnea) Cardioversion Allergies Allergy/AdvReac Type Severity Reaction Status Date / Time clavulanic acid Allergy Intermediate PURITIS Verified 09/14/21 11:36 amoxicillin Allergy Unknown Unknown Verified 09/14/21 11:36 amphetamine Allergy Unknown possible Verified 09/14/21 11:36 cause of pruritis, no rash- mild cefuroxime Allergy Unknown Unknown Verified 09/14/21 11:36 erythromycin base Allergy Unknown Unknown Verified 09/14/21 11:36 lodoxamide Allergy Unknown Nausea Verified 09/14/21 11:36 Home Medications Medication Instructions Recorded Confirmed Type calcium carbonate 600 mg calcium 600 mg PO DAILY 01/16/19 10/09/21 History (1,500 mg) tablet (Calcium) cholecalciferol (vitamin D3) 50 50 mcg PO DAILY 01/16/19 10/09/21 History mcg (2,000 unit) capsule coenzyme Q10 10 mg capsule (Co 10 mg PO ONCE 01/16/19 10/09/21 History Q-10) isosorbide mononitrate 60 mg 60 mg PO DAILY 01/16/19 10/09/21 History tablet,extended release 24 hr mecobalamin (vitamin B12) 1,000 1,000 mcg sublingual DAILY 01/16/19 10/09/21 History mcg disintegrating tablet,sublingual lancets 33 gauge #200 ea 11/20/19 10/09/21 Rx pantoprazole 40 mg tablet,delayed 40 mg PO QAM 12/02/19 10/09/21 History release fluticasone propionate 50 2 spray intranasal DAILY #16 grams 04/22/20 10/09/21 Rx mcg/actuation nasal spray,suspension blood sugar diagnostic (Contour #200 ea 10/26/20 10/09/21 Rx Next Test Strips) magnesium oxide 400 mg PO DAILY 10/26/20 10/09/21 History albuterol sulfate 90 mcg/actuation See Rx Instructions .Route 01/07/21 10/09/21 Rx aerosol inhaler .COMPLEX #8.5 ea nitroglycerin 0.4 mg sublingual 0.4 mg sublingual Q5M PRN chest 04/06/21 10/09/21 Rx tablet pain #25 tabs pen needle, diabetic 31 gauge x See Rx Instructions .Route 06/02/21 10/09/21 Rx 3/16 (BD Ultra-Fine Mini Pen .COMPLEX #400 ea Needle) venlafaxine 75 mg tablet See Rx Instructions .Route 06/15/21 10/09/21 Rx .COMPLEX #180 tabs insulin glargine 100 unit/mL (3 20 unit (0.2 mL) subcut QAM 90 10/05/21 10/09/21 Rx mL) subcutaneous pen (Basaglar days #30 mL KwikPen U-100 Insulin) insulin lispro 100 unit/mL 10 unit (0.1 mL) subcut 10/05/21 10/09/21 Rx subcutaneous pen (Humalog KwikPen USEASDIRECTD 90 days #45 mL (U-100) Insulin) atorvastatin 40 mg tablet 80 mg PO HS 10/09/21 10/09/21 History ropinirole 1 mg tablet 3 mg PO DAILY 10/09/21 10/09/21 History tobramycin 0.3 % eye drops 1 drp EACH EYE Q4H PRN dry eyes 10/09/21 10/09/21 History apixaban 5 mg tablet (Eliquis) 5 mg PO Q12HR 1 month #60 tabs 10/10/21 Rx sotalol 80 mg tablet 80 mg PO Q12HR 1 month #60 tabs 10/10/21 Rx Current Medications: Active Medications Apixaban (Apixaban 5 Mg Tablet) 5 mg PO Q12HR [facility] Last Admin: 10/12/21 08:49 Dose: 5 mg Atorvastatin Calcium (Atorvastatin 40 Mg Tablet) 80 mg PO HS [facility] Last Admin: 10/11/21 20:32 Dose: 80 mg Calcium Carbonate (Calcium Carbonate (Oscal) 500 Mg Tablet) 500 mg PO DAILY [facility] Stop: 11/09/21 08:59 Last Admin: 10/12/21 08:46 Dose: 500 mg Cyanocobalamin (Cyanocobalamin 1,000 Mcg Tablet) 1,000 mcg PO QAM [facility] Last Admin: 10/12/21 08:48 Dose: 1,000 mcg Dextrose (Dextrose 50% 25 Gm/50 Ml Syringe) 12.5 gm IV PUSH PRN PRN; Protocol PRN Reason: Hypoglycemia Fluticasone Propionate (Fluticasone Propionate 0.05% Na Spr 16 Gm Btl (*Bkc)) 2 spray NASAL DAILY DANIEL
--- NOTE | 2021-10-12 13:00 | PC.NURSE ---
to GI lab for LOIS
--- NOTE | 2021-10-12 13:11 | WPDANESEPPF ---
Anes - Initial Pre Proc Eval Procedure: Operation Date: 10/12/21 12:30 Proposed Procedures p Trans Esophageal Echo LOIS - Radha English MD s Electrical Cardioversion - Radha English MD Date/Time: 10/12/21 13:11 Surgeon: Brijesh Gusman DO Pre Op Diagnosis: Hypoxic Respiratory Failure Patient Data Age: 81 Gender: F Height: 1.65 m Weight: 79.7 kg Last Vital Signs Temp 96.4 F L 10/12/21 12:55 Pulse 121 H 10/12/21 12:55 Resp 16 10/12/21 12:55 BP 119/89 10/12/21 12:55 Pulse Ox 98 10/12/21 12:55 O2 Del Method Room Air 10/12/21 08:00 O2 Flow Rate 2 10/10/21 08:00 Allergies Allergy/AdvReac Type Severity Reaction Status Date / Time clavulanic acid Allergy Intermediate PURITIS Verified 09/14/21 11:36 amoxicillin Allergy Unknown Unknown Verified 09/14/21 11:36 amphetamine Allergy Unknown possible Verified 09/14/21 11:36 cause of pruritis, no rash- mild cefuroxime Allergy Unknown Unknown Verified 09/14/21 11:36 erythromycin base Allergy Unknown Unknown Verified 09/14/21 11:36 lodoxamide Allergy Unknown Nausea Verified 09/14/21 11:36 Home Medications Medication Instructions Recorded Confirmed Type calcium carbonate 600 mg calcium 600 mg PO DAILY 01/16/19 10/09/21 History (1,500 mg) tablet (Calcium) cholecalciferol (vitamin D3) 50 50 mcg PO DAILY 01/16/19 10/09/21 History mcg (2,000 unit) capsule coenzyme Q10 10 mg capsule (Co 10 mg PO ONCE 01/16/19 10/09/21 History Q-10) isosorbide mononitrate 60 mg 60 mg PO DAILY 01/16/19 10/09/21 History tablet,extended release 24 hr mecobalamin (vitamin B12) 1,000 1,000 mcg sublingual DAILY 01/16/19 10/09/21 History mcg disintegrating tablet,sublingual lancets 33 gauge #200 ea 11/20/19 10/09/21 Rx pantoprazole 40 mg tablet,delayed 40 mg PO QAM 12/02/19 10/09/21 History release fluticasone propionate 50 2 spray intranasal DAILY #16 grams 04/22/20 10/09/21 Rx mcg/actuation nasal spray,suspension blood sugar diagnostic (Contour #200 ea 10/26/20 10/09/21 Rx Next Test Strips) magnesium oxide 400 mg PO DAILY 10/26/20 10/09/21 History albuterol sulfate 90 mcg/actuation See Rx Instructions .Route 01/07/21 10/09/21 Rx aerosol inhaler .COMPLEX #8.5 ea nitroglycerin 0.4 mg sublingual 0.4 mg sublingual Q5M PRN chest 04/06/21 10/09/21 Rx tablet pain #25 tabs pen needle, diabetic 31 gauge x See Rx Instructions .Route 06/02/21 10/09/21 Rx 3/16 (BD Ultra-Fine Mini Pen .COMPLEX #400 ea Needle) venlafaxine 75 mg tablet See Rx Instructions .Route 06/15/21 10/09/21 Rx .COMPLEX #180 tabs insulin glargine 100 unit/mL (3 20 unit (0.2 mL) subcut QAM 90 10/05/21 10/09/21 Rx mL) subcutaneous pen (Basaglar days #30 mL KwikPen U-100 Insulin) insulin lispro 100 unit/mL 10 unit (0.1 mL) subcut 10/05/21 10/09/21 Rx subcutaneous pen (Humalog KwikPen USEASDIRECTD 90 days #45 mL (U-100) Insulin) atorvastatin 40 mg tablet 80 mg PO HS 10/09/21 10/09/21 History ropinirole 1 mg tablet 3 mg PO DAILY 10/09/21 10/09/21 History tobramycin 0.3 % eye drops 1 drp EACH EYE Q4H PRN dry eyes 10/09/21 10/09/21 History apixaban 5 mg tablet (Eliquis) 5 mg PO Q12HR 1 month #60 tabs 10/10/21 Rx sotalol 80 mg tablet 80 mg PO Q12HR 1 month #60 tabs 10/10/21 Rx Laboratory Tests 10/11/21 10/12/21 10/12/21 16:40 08:02 10:05 Sodium Potassium Chloride Carbon Dioxide Anion Gap BUN Creatinine Estim Creat Clear Calc Estimated GFR Glucose POC Capillary Glucose 272 mg/dl H mg/dl 203 mg/dl H mg/dl (65-105) (65-105) Calcium Magnesium 1.7 mg/dL mg/dL (1.6-2.3) 10/12/21 10/12/21 10:05 11:33 Sodium 139 mmol/L mmol/L (137-145) Potassium 3.8 mmol/L mmol/L (3.4-5.0) Chloride 102 mmol/L mmol/L (98-107) Carbon Dioxide 26 mmol/L m
--- NOTE | 2021-10-12 13:30 | ECG_ITS ---
Measurements Intervals [place] Rate: 134 P: [place]: 0 QRS: -15 QRSD: 86 T: 65 QT: 326 QTc: 488 Interpretive Statements ATRIAL FIBRILLATION WITH RAPID VENTRICULAR RESPONSE NONSPECIFIC T-WAVE ABNORMALITY ABNORMAL RHYTHM ECG COMPARED TO ECG 10/11/2021 22:29:59 NO SIGNIFICANT CHANGES Electronically Signed On 10-12-2021 16:38:26 CDT by Radha English M.D.
--- NOTE | 2021-10-12 13:51 | PM.OP ---
Procedure Note - Brief Procedure Note - Brief Date of procedure: 10/12/21 Pre-op diagnosis: Hypoxic Respiratory Failure AFib RVR Post-op diagnosis: Other (Paroxysmal AFib) Procedure performed: LOIS Cardioversion Description of procedure: Status post successful cardioversion with anesthesia assistance Surgeon: Radha English MD Complications: No immediate complications
--- NOTE | 2021-10-12 13:52 | W.PM.PROC2 ---
Procedure Note - Detailed Date of Procedure 10/12/21 Pre-op Diagnosis AFib RVR Acute diastolic heart failure Post-op Diagnosis Other (AFib status post successful cardioversion) Surgeon Radha English MD Urine Output 300
--- NOTE | 2021-10-12 13:56 | WPDTECDV ---
LOIS with Cardioversion Date of procedure: 10/12/21 Procedure Type: LOIS Cardioversion Diagnosis: AFib RVR Indications: 81-year-old female with history of stroke in September, when she was found to have paroxysmal atrial fibrillation. Anticoagulated with Eliquis. Readmitted, this time with AFib RVR, has not converted with sotalol. Plan is to proceed with a transesophageal ECHO guided cardioversion. Description of Procedure: Anesthesia: See anesthesia flow sheet Procedure: After informed consent the patient underwent anesthesia per anesthesia flow sheet. The transesophageal echo probe was introduced in the esophagus without difficulty. Imaging was obtained in multiplane views. The patient tolerated the procedure well with no complications. Cardioversion: After informed consent and the above anesthesia, the patient underwent elective electrical synchronized cardioversion with 150 joules of biphasic energy but remained in atrial fibrillation, then underwent a 2nd cardioversion with 200 joules of synchronized energy and converted to normal sinus rhythm. There were no complications. Sedation: See anesthesia notes Findings: Findings: The left atrium was enlarged. There is no thrombus present in the left atrium or left atrial appendage. The left atrial appendage was large and multi lobed. The atrial septum appeared intact. Mitral valve appeared normal, with no stenosis or prolapse. The left ventricle had had normal size with moderate concentric hypertrophy, and with good contractility of all segments. The ejection fraction is estimated to be: 65%. The aortic root and valve were normal. The ascending aorta and aortic arch were normal; the descending thoracic aorta had mild aortic atherosclerosis. The right atrium, tricuspid valve, right ventricle, pulmonic valve and pulmonic artery were all normal. There is no pericardial effusion. Color-flow Doppler revealed mild to moderate mitral and tricuspid regurgitation. Conclusion: Successful LOIS guided cardioversion Moderate concentric left ventricular hypertrophy with good contractility, ejection fraction 65%. Mild to moderate mitral and tricuspid regurgitation. Plan: EKG in the morning Ambulate Chest x-ray to reassess CHF Possible discharge tomorrow
--- NOTE | 2021-10-12 14:24 | PC.NURSE ---
patient returning to room after procedure
[2021-10-12 16:04] LABS: Glucose Point of Care 183 mg/dl (65-105)
[2021-10-12] MEDS: INSULIN ASPART (*BKC) 100 UNITS/ML SUB-Q (16:15)
--- NOTE | 2021-10-12 16:19 | PM.IMPN ---
Progress Note: A&P Assessment and Plan (1) Paroxysmal atrial fibrillation: Code(s): I48.0 - Paroxysmal atrial fibrillation Status: Acute Assessment and Plan: Successful LOIS with cardioversion completed today, anticipate d/c tomorrow per cardio note (2) Atherosclerotic heart disease of [place] coronary artery with other forms of angina pectoris: Code(s): I25.118 - Atherosclerotic heart disease of [place] coronary artery with other forms of angina pectoris Status: Acute Assessment and Plan: cont lipitor, plavix, imdur (3) Gastro-esophageal reflux disease without esophagitis: Code(s): K21.9 - Gastro-esophageal reflux disease without esophagitis Status: Acute Assessment and Plan: cont ppi, controlled (4) Major depressive disorder, single episode, unspecified: Code(s): F32.9 - Major depressive disorder, single episode, unspecified Status: Acute Assessment and Plan: Continue Effexor (5) Restless legs syndrome: Code(s): G25.81 - Restless legs syndrome Status: Acute Assessment and Plan: Continue ropinirole (6) Type 2 diabetes mellitus with hyperglycemia: Qualifiers: Diabetes mellitus termite control service representative insulin use: unspecified termite control service representative insulin use status Qualified Code(s): E11.65 - Type 2 diabetes mellitus with hyperglycemia Code(s): E11.65 - Type 2 diabetes mellitus with hyperglycemia Status: Acute Assessment and Plan: Accu-Cheks plus sliding scale insulin, a1c 8.7 (7) Mixed hyperlipidemia: Code(s): E78.2 - Mixed hyperlipidemia Status: Acute Assessment and Plan: Continue Lipitor (8) Essential (primary) hypertension: Code(s): I10 - Essential (primary) hypertension Status: Acute Assessment and Plan: Controlled Plan Full code DVT prophylaxis with Eliquis Subjective Date/time seen: 10/12/21 16:19 Interval history: Patient resting comfortably in bed. No complaints. No overnight events noted. No chest pain or shortness of breath. No nausea, vomiting or diarrhea. No fevers or chills. Review of Systems Review of Systems: 12 point review of systems was assessed and was negative except as noted in the HPI Exam Narrative: General: No acute distress, alert and oriented per baseline HEENT: Atraumatic, normocephalic, mucous membranes moist CV: Irregularly irregular, S1, S2 Lungs: Clear to auscultation bilaterally, no rales or crackles noted, no wheezes, good air entry Abdomen: Soft, nontender, nondistended Extremities: Normal to inspection Skin: No rashes noted, no lesions or wounds seen Psych: Euthymic, normal affect Objective Data Vital Signs Vital Signs: Vital Signs - 24 hr 10/11/21 20:32 10/11/21 20:00 10/11/21 21:35 Temperature 96.9 F L Pulse Rate 127 H 127 H 66 Respiratory Rate 16 Blood Pressure 128/81 Pulse Oximetry 96 Oxygen Delivery 10/12/21 00:00 10/12/21 04:00 10/12/21 05:29 Temperature 97.0 F L Pulse Rate 127 H 108 H 59 L Respiratory Rate 14 Blood Pressure 124/72 Pulse Oximetry 95 Oxygen Delivery 10/12/21 08:00 10/12/21 08:48 10/12/21 08:00 Temperature 97.8 F Pulse Rate 129 H 130 H Respiratory Rate 18 Blood Pressure 132/97 H Pulse Oximetry 96 Oxygen Delivery Room Air 10/12/21 08:00 10/12/21 12:05 10/12/21 12:00 Temperature 96.8 F L Pulse Rate 110 H 121 H 130 H Respiratory Rate 18 Blood Pressure 100/78 Pulse Oximetry 97 Oxygen Delivery 10/12/21 12:55 10/12/21 13:49 10/12/21 14:07 Temperature 96.4 F L Pulse Rate 121 H 80 77 Respiratory Rate 16 16 16 Blood Pressure 119/89 82/47 L 91/55 L Pulse Oximetry 98 95 96 Oxygen Delivery Room Air Room Air 10/12/21 14:11 10/12/21 13:53 10/12/21 13:57 Temperature Pulse Rate 78 79 87 Respiratory Rate 16 16 16 Blood Pressure 97/52 L 83/43 L 96/47 L Pulse Oximetry 97 95 95 Oxygen Delivery Room Air Room Air [facility]
[2021-10-12] MEDS: FUROSEMIDE INJ 40 MG/4 ML VIAL 20 MG IV PUSH (18:03)
[2021-10-12] MEDS: ATORVASTATIN 40 MG TABLET 80 MG PO (20:02)
[2021-10-12 20:08] LABS: Glucose Point of Care 274 mg/dl (65-105)
[2021-10-13] VITALS (13 sets, daily range): BP systolic 115–135; BP diastolic 59–74; PULSE 59–149; RESP 16–20; TEMP 36.3–36.8; O2SAT 95–99
[2021-10-13 07:31] LABS: Glucose Point of Care 149 mg/dl (65-105)
--- NOTE | 2021-10-13 07:39 | WPDANESPN ---
Anes - Prog Note Post-Op Date/Time: 10/13/21 07:39 Cardiovascular status: normal Respiratory status: normal Airway patency: baseline Mental status: baseline Post-Op hydration status: normal Vital Signs: Last Vital Signs Temp 97.7 F 10/13/21 04:00 Pulse 81 10/13/21 04:00 Resp 17 10/13/21 04:00 BP 125/61 10/13/21 04:00 Pulse Ox 98 10/13/21 04:00 O2 Del Method Room Air 10/12/21 21:25 O2 Flow Rate 2 10/10/21 08:00 Pain Score (VAS): 03/15 I/O: Intake & Output 10/12/21 10/12/21 10/13/21 15:59 23:59 07:59 Intake Total 540 250 Balance 540 250 Laboratory Tests 10/09/21 02:38 10/12/21 10:05 10/12/21 10/12/21 10/12/21 08:02 10:05 10:05 Sodium 139 Potassium 3.8 Chloride 102 Carbon Dioxide 26 Anion Gap 11 BUN 13 D Creatinine 0.70 Estim Creat Clear Calc 57 Estimated GFR > 60 Glucose 229 H POC Capillary Glucose 203 H Calcium 9.3 Magnesium 1.7 10/12/21 10/12/21 10/12/21 11:33 15:59 20:05 Sodium Potassium Chloride Carbon Dioxide Anion Gap BUN Creatinine Estim Creat Clear Calc Estimated GFR Glucose POC Capillary Glucose 210 H 183 H 274 H Calcium Magnesium 10/13/21 07:26 Sodium Potassium Chloride Carbon Dioxide Anion Gap BUN Creatinine Estim Creat Clear Calc Estimated GFR Glucose POC Capillary Glucose 149 H Calcium Magnesium Patient Feedback: Patient satisfied with anesthetic care.
--- NOTE | 2021-10-13 08:00 | ECG_ITS ---
Measurements Intervals [place] Rate: 78 P: 83 OK: 193 QRS: -9 QRSD: 94 T: 84 QT: 356 QTc: 407 Interpretive Statements SINUS RHYTHM NONSPECIFIC T-WAVE ABNORMALITY COMPARED TO ECG 10/12/2021 13:45:01 NO SIGNIFICANT CHANGES Electronically Signed On 10-13-2021 18:17:34 CDT by Radha English M.D.
[2021-10-13] MEDS: rOPINIRole HCL 1 MG TABLET 3 MG PO (08:57)
[2021-10-13] MEDS: CYANOCOBALAMIN 1,000 MCG TABLET 1000 MCG PO (08:57)
[2021-10-13] MEDS: CHOLECALCIFEROL 1,000 UNITS TABLET 2000 UNITS PO (08:57)
[2021-10-13] MEDS: FLUTICASONE PROPIONATE 0.05% NA SPR 16 GM BTL (*BKC) 2 SPRAY NASAL (08:57)
[2021-10-13] MEDS: PANTOPRAZOLE 40 MG TABLET PO (08:58)
[2021-10-13] MEDS: VENLAFAXINE HCL 75 MG TABLET BY MOUTH ×2 (08:58→21:01)
[2021-10-13] MEDS: APIXABAN 5 MG TABLET PO ×2 (08:58→21:01)
[2021-10-13] MEDS: MAGNESIUM OXIDE 400 MG TABLET PO (08:58)
[2021-10-13] MEDS: SOTALOL HCL 80 MG TABLET PO (08:58)
[2021-10-13] MEDS: ISOSORBIDE MONONITRATE 60 MG TAB.ER.24H PO (08:58)
[2021-10-13] MEDS: CALCIUM CARBONATE (OSCAL) 500 MG TABLET PO (08:58)
[2021-10-13] MEDS: INSULIN GLARGINE (*BKC) 100 UNITS/ML 30 UNITS SUB-Q (09:04)
[2021-10-13] MEDS: INSULIN ASPART (*BKC) 100 UNITS/ML SUB-Q ×3 (09:04→17:13)
[2021-10-13 10:10] LABS: Anion Gap 12 mmol/L (8-16); Blood Urea Nitrogen 17 mg/dL (7-17); Calcium 9.1 mg/dL (8.4-10.2); Carbon Dioxide 25 mmol/L (22-30); Chloride 99 mmol/L (98-107); Estimated CRCL calculation 57 ml/min; Estimated Glomerular Filt Rate > 60; Glucose 210 mg/dL (65-110); Magnesium 1.8 mg/dL (1.6-2.3); Potassium 3.6 mmol/L (3.4-5.0); Sodium 136 mmol/L (137-145)
--- NOTE | 2021-10-13 10:15 | PM.PNCARD ---
Progress Note: A&P Assessment and Plan (1) Paroxysmal atrial fibrillation: Code(s): I48.0 - Paroxysmal atrial fibrillation Status: Acute Assessment and Plan: Paroxysmal atrial fibrillation, persistent with RVR on admission. Started on sotalol, QTC is acceptable Status post cardioversion 10/12/2021, maintaining sinus rhythm Anticoagulated with Eliquis. Samples provided. Okay for discharge on sotalol Has follow-up scheduled. (2) Acute diastolic CHF (congestive heart failure): Code(s): I50.31 - Acute diastolic (congestive) heart failure Status: Acute Assessment and Plan: Admitted with acute diastolic heart failure. Presumably due to intermittent AFib RVR at home, although was in NSR on presentation to our ER. Does have diastolic dysfunction. CHF was clearing up without daily diuresis during her hospital stay. Chest x-ray yesterday showed some minimal residual CHF and was given 1 more dose of IV Lasix. Does have a few residual rales, but otherwise looks good and is breathing well. Probably does not need long-term diuretics. (3) Atherosclerotic heart disease of [place] coronary artery with other forms of angina pectoris: Code(s): I25.118 - Atherosclerotic heart disease of [place] coronary artery with other forms of angina pectoris Status: Acute Assessment and Plan: History of CAD and circumflex stent. Stable without angina, continue anticoagulation and statin therapy. (4) History of stroke: Code(s): Z86.73 - Personal history of transient ischemic attack (TIA), and cerebral infarction without residual deficits Status: Acute Assessment and Plan: Stroke in September, treated with percutaneous intervention, good results. Continue Eliquis and statin therapy (5) Essential (primary) hypertension: Code(s): I10 - Essential (primary) hypertension Status: Acute Assessment and Plan: Blood pressure looks well controlled without metoprolol. (6) Dyslipidemia associated with type 2 diabetes mellitus: Code(s): E11.69 - Type 2 diabetes mellitus with other specified complication; E78.5 - Hyperlipidemia, unspecified Status: Acute Assessment and Plan: Treatment per hospitalist. Continue statin therapy. Subjective Date/time seen: Follow-up for AFib, status post cardioversion 10/12/2021. History of stroke and new onset AFib in September 2021. Anticoagulated with Eliquis. 10/13/21 10:15 Remains home sinus rhythm after cardioversion yesterday. Doing fine, no PND, orthopnea, breathing is back to normal, up to bathroom back with no problems. Callies at the bedside with questions, asnwered to his satisfaction. Chest x-ray yesterday still showed some mild pulmonary vascular congestion but much improved compared to the prior chest x-ray. I did give her mg of furosemide IV push x1 yesterday. Review of Systems Constitutional: Constitutional: Denies fever(s) Cardiovascular: Cardiovascular: Denies chest pain, Denies pedal edema, Denies lightheadedness and Denies dyspnea Respiratory: Respiratory: Denies chest congestion and Denies dyspnea Gastrointestinal: Gastrointestinal: Denies abdominal pain and Denies hematochezia Musculoskeletal: Musculoskeletal: Reports no additional musculoskeletal complaints Integumentary/Breasts: Skin/Breast: Reports system reviewed and no additional complaints, except as docu Neurologic: Reports system reviewed and no additional complaints, except as documented, Denies behavioral changes and Denies confusion Psychiatric: Psychiatric: Denies behavioral changes and Denies confusion Exam Const: General: cooperative, healthy appearing and comfortable; No confusion Orientation/consciousness: oriented to person, patient oriented x3 and No confusion Resp: [employer]
[2021-10-13 11:42] LABS: Glucose Point of Care 186 mg/dl (65-105)
--- NOTE | 2021-10-13 12:16 | PC.NURSE ---
at 1215 this nurse was alerted from another nurse that pt tele was reading afib. pt had cardioversion yesterday. Dr. English from cardiology was called and updated. She told me she will be up shortly to see the patient.
[2021-10-13] MEDS: SODIUM CHLORIDE 0.9% IV 1,000 ML 30 ML IV CONT (12:41)
--- NOTE | 2021-10-13 14:28 | PM.IMPN ---
Progress Note: A&P Assessment and Plan (1) Paroxysmal atrial fibrillation: Code(s): I48.0 - Paroxysmal atrial fibrillation Status: Acute Assessment and Plan: Successful LOIS with cardioversion completed today 10/12/2021 back on AFib 10/13/2021 on sotalol back to afib. plan to start amiodarone. move to [place] Dr. hart (2) Atherosclerotic heart disease of [place] coronary artery with other forms of angina pectoris: Code(s): I25.118 - Atherosclerotic heart disease of [place] coronary artery with other forms of angina pectoris Status: Acute Assessment and Plan: cont lipitor, plavix, imdur (3) Gastro-esophageal reflux disease without esophagitis: Code(s): K21.9 - Gastro-esophageal reflux disease without esophagitis Status: Acute Assessment and Plan: cont ppi, controlled (4) Major depressive disorder, single episode, unspecified: Code(s): F32.9 - Major depressive disorder, single episode, unspecified Status: Acute Assessment and Plan: Continue Effexor (5) Restless legs syndrome: Code(s): G25.81 - Restless legs syndrome Status: Acute Assessment and Plan: Continue ropinirole (6) Type 2 diabetes mellitus with hyperglycemia: Qualifiers: Diabetes mellitus continuous churn buttermaker insulin use: unspecified continuous churn buttermaker insulin use status Qualified Code(s): E11.65 - Type 2 diabetes mellitus with hyperglycemia Code(s): E11.65 - Type 2 diabetes mellitus with hyperglycemia Status: Acute Assessment and Plan: Accu-Cheks plus sliding scale insulin, a1c 8.7 (7) Mixed hyperlipidemia: Code(s): E78.2 - Mixed hyperlipidemia Status: Acute Assessment and Plan: Continue Lipitor (8) Essential (primary) hypertension: Code(s): I10 - Essential (primary) hypertension Status: Acute Assessment and Plan: Controlled Plan Full code DVT prophylaxis with Eliquis Subjective Date/time seen: 10/13/21 14:28 Interval history: HPI:81-year-old female with past medical history significant for coronary artery disease and stroke about 3 weeks ago is presenting with a 2 to three-day history of generally feeling unwell.? She reports some shortness of breath and chest tightness, does not appear to be exertional or postprandial.? She denies headaches or vision changes.? She denies nausea vomiting or diarrhea.? No fevers or chills.? Looking over records from [place], she appears to have paroxysmal atrial fibrillation essentially controlled on metoprolol at her discharge from her CVA.? She reports no residual deficits from the CVA.? She did undergo an interventional revascularization procedure that was successful. In the ER, the patient found to be in AFib with RVR.? Chest x-ray did show some vascular congestion as well.? She was given Lasix and Lopressor 5 mg IV as well as metoprolol 50 mg p.o. and symptoms appeared to resolve. Cardiology was consulted and discontinued metoprolol in favor of sotalol with a goal of keeping the patient in sinus rhythm as opposed AFib 10/13/2021 she had cardioversion done yesterday. Remained in sinus rhythm until 02 02 this morning include back to atrial fibrillation with RVR. See is on sotalol as ordered by the cardiology was following the patient during the hospital stay. Review of Systems Review of Systems: All systems reviewed & are unremarkable except as noted in HPI and below Exam Narrative: General: No acute distress, alert and oriented per baseline HEENT: Atraumatic, normocephalic, mucous membranes moist CV: Irregularly irregular, Tachycardic, S1, S2 Lungs: Clear to auscultation bilaterally, no rales or crackles noted, no wheezes, good air entry Abdomen: Soft, nontender, nondistended Extremities: Normal to inspection Skin: No rashes noted, no lesions or wounds seen Psych: Euthymic, normal affect Objective Data Vital Signs Vital Signs: Vital Signs
[2021-10-13 16:57] LABS: Glucose Point of Care 183 mg/dl (65-105)
[2021-10-13] MEDS: dilTIAZem HCl INJ 25 MG/5 ML VIAL 10 MG IV PUSH (17:12)
[2021-10-13] MEDS: dilTIAZem 100 MG/100 ML 100 MG/100 ML BAG 10 MG IV CONT (17:12)
--- NOTE | 2021-10-13 17:23 | PC.NURSE ---
1644 received pt from 3rd med/surg to [id number] - pt a/o x3 - monitor atrial fib 120's -150's- slight sob with activity- IVF infusing RAC area- red/infilitrated- IV restarted in Left forearm- 1700 IV Cardizem bolus 10mg IVP given as ordered and IV cardizem drip started at 5mg/as ordered- rate 120's - will continue to monitor
[2021-10-13] MEDS: dilTIAZem HCl INJ 25 MG/5 ML VIAL 5 MG IV PUSH (17:59)
[2021-10-13] MEDS: ATORVASTATIN 40 MG TABLET 80 MG PO (21:01)
[2021-10-13 21:13] LABS: Glucose Point of Care 233 mg/dl (65-105)
[2021-10-14] VITALS (18 sets, daily range): BP systolic 111–128; BP diastolic 53–85; PULSE 85–110; RESP 14–20; TEMP 36.2–36.7; O2SAT 96–100
[2021-10-14] MEDS: dilTIAZem 100 MG/100 ML 100 MG/100 ML BAG 10 MG IV CONT (04:12)
[2021-10-14 06:19] LABS: Basophils Absolute Auto 0.1 K/mm3 (0.0-0.1); Basophils Percent Auto 0.8 % (0.2-1.2); Eosinophils Absolute Auto 0.3 K/mm3 (0-0.3); Eosinophils Percent Auto 3.9 % (0-4.4); Hematocrit 35.6 % (37.0-47.0); Hemoglobin 11.4 g/dL (12.0-15.0); Immature Granulocyte Absolute 0.02 K/mm3 (0.00-0.031); Immature Granulocyte Percent A 0.3 % (0-0.5); Lymphocytes Absolute Auto 2.05 K/mm3 (0.9-3.2); Mean Corpuscular Hemoglobin 26.6 pg (26-34); Mean Platelet Volume 9.5 fl (7.4-10.4); Monocytes Absolute Auto 0.4 K/mm3 (0.1-0.6); Monocytes Percent Auto 6.4 % (2.6-8.5); Neutrophils Absolute Auto 3.6 K/mm3 (1.3-6.7); Neutrophils Percent Auto 56.6 % (45.5-73.1); Platelet Count Result 252 k/mm3 (150-375); Red Blood Count 4.29 M/mm3 (4.2-5.4); Red Cell Distribution Width 13.2 % (11.5-14.5); White Blood Count 6.4 K/mm3 (4.5-10.0)
[2021-10-14 06:56] LABS: Alanine Aminotransferase 19 U/L (6-35); Albumin Level 3.8 g/dL (3.5-5.1); Alkaline Phosphatase 93 U/L (38-126); Anion Gap 12 mmol/L (8-16); Aspartate Amino Transferase 21 U/L (14-36); Bilirubin,Total 0.6 mg/dL (0.2-1.3); Blood Urea Nitrogen 18 mg/dL (7-17); Calcium 9.2 mg/dL (8.4-10.2); Carbon Dioxide 26 mmol/L (22-30); Chloride 101 mmol/L (98-107); Estimated CRCL calculation 57 ml/min; Estimated Glomerular Filt Rate > 60; Glucose 202 mg/dL (65-110); Magnesium 1.8 mg/dL (1.6-2.3); Potassium 3.5 mmol/L (3.4-5.0); Sodium 139 mmol/L (137-145)
[2021-10-14] MEDS: INSULIN GLARGINE (*BKC) 100 UNITS/ML 30 UNITS SUB-Q (08:12)
[2021-10-14] MEDS: INSULIN ASPART (*BKC) 100 UNITS/ML SUB-Q ×4 (08:18→17:17)
[2021-10-14 08:24] LABS: Glucose Point of Care 220 mg/dl (65-105)
[2021-10-14] MEDS: dilTIAZem HCL 60 MG TABLET PO ×3 (09:04→20:52)
[2021-10-14] MEDS: APIXABAN 5 MG TABLET PO ×2 (09:09→20:52)
[2021-10-14] MEDS: CHOLECALCIFEROL 1,000 UNITS TABLET 2000 UNITS PO (09:09)
[2021-10-14] MEDS: PANTOPRAZOLE 40 MG TABLET PO (09:09)
[2021-10-14] MEDS: MAGNESIUM OXIDE 400 MG TABLET PO (09:10)
[2021-10-14] MEDS: VENLAFAXINE HCL 75 MG TABLET BY MOUTH ×2 (09:10→20:52)
[2021-10-14] MEDS: FLUTICASONE PROPIONATE 0.05% NA SPR 16 GM BTL (*BKC) 2 SPRAY NASAL (09:11)
[2021-10-14] MEDS: CYANOCOBALAMIN 1,000 MCG TABLET 1000 MCG PO (09:11)
[2021-10-14] MEDS: CALCIUM CARBONATE (OSCAL) 500 MG TABLET PO (09:12)
[2021-10-14] MEDS: AMIODARONE 150 MG/D5W 100 ML 150 MG/100 ML BAG 600 MG IV CONT (09:12)
[2021-10-14] MEDS: AMIODARONE 360 MG/D5W 200 ML 360 MG/200 ML BAG 33.33 MG IV CONT (09:27)
[2021-10-14] MEDS: ISOSORBIDE MONONITRATE 60 MG TAB.ER.24H PO (09:30)
--- NOTE | 2021-10-14 11:10 | PM.IMPN ---
Progress Note: A&P Assessment and Plan (1) Paroxysmal atrial fibrillation: Code(s): I48.0 - Paroxysmal atrial fibrillation Status: Acute Assessment and Plan: Successful LOIS with cardioversion completed 10/12/2021 back on AFib 10/13/2021 on sotalol back to afib. Started on amiodarone 10/14/2021 (2) Atherosclerotic heart disease of [place] coronary artery with other forms of angina pectoris: Code(s): I25.118 - Atherosclerotic heart disease of [place] coronary artery with other forms of angina pectoris Status: Acute Assessment and Plan: cont lipitor, plavix, imdur (3) Gastro-esophageal reflux disease without esophagitis: Code(s): K21.9 - Gastro-esophageal reflux disease without esophagitis Status: Acute Assessment and Plan: cont ppi, controlled (4) Major depressive disorder, single episode, unspecified: Code(s): F32.9 - Major depressive disorder, single episode, unspecified Status: Acute Assessment and Plan: Continue Effexor (5) Restless legs syndrome: Code(s): G25.81 - Restless legs syndrome Status: Acute Assessment and Plan: Continue ropinirole (6) Type 2 diabetes mellitus with hyperglycemia: Qualifiers: Diabetes mellitus care home insulin use: unspecified care home insulin use status Qualified Code(s): E11.65 - Type 2 diabetes mellitus with hyperglycemia Code(s): E11.65 - Type 2 diabetes mellitus with hyperglycemia Status: Acute Assessment and Plan: Accu-Cheks plus sliding scale insulin, a1c 8.7 (7) Mixed hyperlipidemia: Code(s): E78.2 - Mixed hyperlipidemia Status: Acute Assessment and Plan: Continue Lipitor (8) Essential (primary) hypertension: Code(s): I10 - Essential (primary) hypertension Status: Acute Assessment and Plan: Controlled Plan Full code DVT prophylaxis with Eliquis Subjective Date/time seen: 10/14/21 11:10 Interval history: HPI:81-year-old female with past medical history significant for coronary artery disease and stroke about 3 weeks ago is presenting with a 2 to three-day history of generally feeling unwell.? She reports some shortness of breath and chest tightness, does not appear to be exertional or postprandial.? She denies headaches or vision changes.? She denies nausea vomiting or diarrhea.? No fevers or chills.? Looking over records from [place], she appears to have paroxysmal atrial fibrillation essentially controlled on metoprolol at her discharge from her CVA.? She reports no residual deficits from the CVA.? She did undergo an interventional revascularization procedure that was successful. In the ER, the patient found to be in AFib with RVR.? Chest x-ray did show some vascular congestion as well.? She was given Lasix and Lopressor 5 mg IV as well as metoprolol 50 mg p.o. and symptoms appeared to resolve. Cardiology was consulted and discontinued metoprolol in favor of sotalol with a goal of keeping the patient in sinus rhythm as opposed AFib 10/13/2021 she had cardioversion done yesterday. Remained in sinus rhythm until 02 02 this morning include back to atrial fibrillation with RVR. See is on sotalol as ordered by the cardiology was following the patient during the hospital stay. 10/14/2021 patient was in Cardizem drip overnight. Remains on atrial fibrillation but rate control. She has been started on amiodarone drip this morning. Concern with amiodarone long-term use by her today. All the questions answered during the visit Review of Systems Review of Systems: All systems reviewed & are unremarkable except as noted in HPI and below Exam Narrative: General: No acute distress, alert and oriented per baseline HEENT: Atraumatic, normocephalic, mucous membranes moist CV: Irregularly irregular, rate controlled AFib in telemetry, S1, S2 Lungs: Clear to auscultation bilaterally, no rales or crackles noted, no
--- NOTE | 2021-10-14 12:18 | PM.PNCARD ---
Progress Note: A&P Assessment and Plan (1) Paroxysmal atrial fibrillation: Code(s): I48.0 - Paroxysmal atrial fibrillation Status: Acute Assessment and Plan: Paroxysmal atrial fibrillation, persistent with RVR on admission. Status post cardioversion 10/12/2021, after loading with sotalol but relapsed into AFib after 24 hours. Anticoagulated with Eliquis. Samples provided. Started on IV amiodarone and p.o. Cardizem with favorable heart rate response Probably switch IV amiodarone to p.o. tomorrow, 400 mg b.i.d. for week then 400 mg daily Up and ambulate Possible discharge over the weekend with outpatient follow-up Possible elective outpatient cardioversion depending on the patient's course (2) Acute diastolic CHF (congestive heart failure): Code(s): I50.31 - Acute diastolic (congestive) heart failure Status: Acute Assessment and Plan: Admitted with acute diastolic heart failure. Presumably due to intermittent AFib RVR at home, although was in NSR on presentation to our ER. Does have diastolic dysfunction. CHF was clearing up without daily diuresis during her hospital stay. Does have a few residual rales, but otherwise looks good and is breathing well. Will give another dose IV Lasix Also check BNP in a.m. to help assess need for long-term diuretics. (3) Atherosclerotic heart disease of [place] coronary artery with other forms of angina pectoris: Code(s): I25.118 - Atherosclerotic heart disease of [place] coronary artery with other forms of angina pectoris Status: Acute Assessment and Plan: History of CAD and circumflex stent. Stable without angina, continue anticoagulation and statin therapy. (4) History of stroke: Code(s): Z86.73 - Personal history of transient ischemic attack (TIA), and cerebral infarction without residual deficits Status: Acute Assessment and Plan: Stroke in September, treated with percutaneous intervention, good results. Continue Eliquis and statin therapy (5) Essential (primary) hypertension: Code(s): I10 - Essential (primary) hypertension Status: Acute Assessment and Plan: Blood pressure looks well controlled without metoprolol. (6) Dyslipidemia associated with type 2 diabetes mellitus: Code(s): E11.69 - Type 2 diabetes mellitus with other specified complication; E78.5 - Hyperlipidemia, unspecified Status: Acute Assessment and Plan: Treatment per hospitalist. Continue statin therapy. Subjective Date/time seen: 10/14/21 12:18 Follow-up for AFib, status post cardioversion 10/12/2021.? History of stroke and new onset AFib in September 2021.? Anticoagulated with Eliquis.? 10/13/21? 10:15? Remains home sinus rhythm after cardioversion yesterday.? Doing fine, no PND, orthopnea, breathing is back to normal, up to bathroom back with no problems.? Mr. Graham at the bedside with questions, asnwered to his satisfaction.? Chest x-ray yesterday still showed some mild pulmonary vascular congestion but much improved compared to the prior chest x-ray.? I did give her mg of furosemide IV push x1 yesterday. Date of service 10/14/2021: Unfortunately patient went back and atrial fibrillation RVR yesterday morning. She was moved to IMU, started on a Cardizem drip and the sotalol was discontinued due to lack of efficacy. Her heart rate improved, and I switched her to p.o. Cardizem this morning and started an amiodarone drip to help hasten the amiodarone loading since her AFib has been so difficult to control. Heart rate running 85-100. Has been up to the bathroom and back with no shortness of breath. 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 Review of Systems Constitutional: Constitutional: Denies fever(s) Cardiovascular: Cardiovascular: Denies chest pain, Denies pedal swathi
[2021-10-14 12:36] LABS: Glucose Point of Care 425 mg/dl (65-105)
[2021-10-14 12:36] LABS: Glucose Point of Care 407 mg/dl (65-105)
[2021-10-14] MEDS: INSULIN ASPART (*BKC) 100 UNITS/ML 10 UNITS SUB-Q (12:53)
[2021-10-14 14:04] LABS: Glucose Point of Care 336 mg/dl (65-105)
[2021-10-14] MEDS: AMIODARONE 360 MG/D5W 200 ML 360 MG/200 ML BAG 16.67 MG IV CONT (15:12)
[2021-10-14 17:10] LABS: Glucose Point of Care 121 mg/dl (65-105)
[2021-10-14 20:31] LABS: Glucose Point of Care 123 mg/dl (65-105)
[2021-10-14] MEDS: rOPINIRole HCL 1 MG TABLET 3 MG PO (20:51)
[2021-10-14] MEDS: ATORVASTATIN 40 MG TABLET 80 MG PO (20:51)
[2021-10-15] VITALS (16 sets, daily range): BP systolic 110–124; BP diastolic 62–68; PULSE 84–130; RESP 12–24; TEMP 36.4–37.3; O2SAT 94–100
[2021-10-15] MEDS: AMIODARONE 360 MG/D5W 200 ML 360 MG/200 ML BAG 16.67 MG IV CONT ×2 (02:49→14:51)
[2021-10-15 05:05] LABS: Basophils Absolute Auto 0.1 K/mm3 (0.0-0.1); Eosinophils Absolute Auto 0.2 K/mm3 (0-0.3); Eosinophils Percent Auto 3.5 % (0-4.4); Hematocrit 36.5 % (37.0-47.0); Hemoglobin 11.8 g/dL (12.0-15.0); Immature Granulocyte Absolute 0.02 K/mm3 (0.00-0.031); Immature Granulocyte Percent A 0.3 % (0-0.5); Lymphocytes Absolute Auto 1.92 K/mm3 (0.9-3.2); Lymphocytes Percent Auto 30.6 % (18.3-44.2); Mean Corpuscular HGB Conc 32.3 g/dl (32-36); Mean Corpuscular Hemoglobin 26.6 pg (26-34); Mean Corpuscular Volume 82.4 fl (80-100); Mean Platelet Volume 9.5 fl (7.4-10.4); Monocytes Absolute Auto 0.3 K/mm3 (0.1-0.6); Monocytes Percent Auto 5.4 % (2.6-8.5); Neutrophils Absolute Auto 3.7 K/mm3 (1.3-6.7); Neutrophils Percent Auto 59.2 % (45.5-73.1); Platelet Count Result 249 k/mm3 (150-375); Red Blood Count 4.43 M/mm3 (4.2-5.4); White Blood Count 6.3 K/mm3 (4.5-10.0)
[2021-10-15 05:14] LABS: Alanine Aminotransferase 18 U/L (6-35); Alkaline Phosphatase 90 U/L (38-126); Anion Gap 11 mmol/L (8-16); Aspartate Amino Transferase 38 U/L (14-36); Bilirubin,Total 0.6 mg/dL (0.2-1.3); Blood Urea Nitrogen 16 mg/dL (7-17); Calcium 9.5 mg/dL (8.4-10.2); Carbon Dioxide 28 mmol/L (22-30); Chloride 102 mmol/L (98-107); Estimated CRCL calculation 50 ml/min; Estimated Glomerular Filt Rate > 60; Glucose 132 mg/dL (65-110); Magnesium 1.8 mg/dL (1.6-2.3); Potassium 3.3 mmol/L (3.4-5.0); Sodium 141 mmol/L (137-145)
[2021-10-15 05:23] LABS: NT Pro B Type Natriuretic Pept 461 pg/mL (5-100)
[2021-10-15] MEDS: dilTIAZem HCL 60 MG TABLET PO ×3 (05:52→21:39)
[2021-10-15 08:28] LABS: Glucose Point of Care 189 mg/dl (65-105)
[2021-10-15] MEDS: VENLAFAXINE HCL 75 MG TABLET BY MOUTH ×2 (09:40→21:39)
[2021-10-15] MEDS: MAGNESIUM OXIDE 400 MG TABLET PO (09:40)
[2021-10-15] MEDS: CHOLECALCIFEROL 1,000 UNITS TABLET 2000 UNITS PO (09:40)
[2021-10-15] MEDS: PANTOPRAZOLE 40 MG TABLET PO (09:40)
[2021-10-15] MEDS: CYANOCOBALAMIN 1,000 MCG TABLET 1000 MCG PO (09:40)
[2021-10-15] MEDS: CALCIUM CARBONATE (OSCAL) 500 MG TABLET PO (09:40)
[2021-10-15] MEDS: APIXABAN 5 MG TABLET PO ×2 (09:40→21:39)
[2021-10-15] MEDS: POTASSIUM CHLORIDE 20 MEQ TABLET 40 MEQ PO (09:41)
[2021-10-15] MEDS: FUROSEMIDE INJ 40 MG/4 ML VIAL 20 MG IV PUSH (09:41)
[2021-10-15] MEDS: ISOSORBIDE MONONITRATE 60 MG TAB.ER.24H PO (09:41)
[2021-10-15] MEDS: INSULIN ASPART (*BKC) 100 UNITS/ML SUB-Q ×3 (09:42→18:00)
[2021-10-15] MEDS: INSULIN GLARGINE (*BKC) 100 UNITS/ML 30 UNITS SUB-Q (09:42)
--- NOTE | 2021-10-15 09:49 | PCNWS ---
Weekly nutritional screen. Patient is tolerating current diabetic consistent carb diet with adequate intake at 100% all meals. No weight loss reported. No nutritional needs at this time.
--- NOTE | 2021-10-15 09:59 | PM.PNCARD ---
Progress Note: A&P Assessment and Plan (1) History of stroke: Code(s): Z86.73 - Personal history of transient ischemic attack (TIA), and cerebral infarction without residual deficits Status: Acute (2) Paroxysmal atrial fibrillation: Code(s): I48.0 - Paroxysmal atrial fibrillation Status: Acute (3) Mitral insufficiency and aortic stenosis: Code(s): I08.0 - Rheumatic disorders of both mitral and aortic valves Status: Acute Plan 81-year-old lady with valvular heart disease and paroxysmal atrial fibrillation. She unfortunately has AFib which did not respond well to sotalol treatment after she was cardioverted she had a recurrence within 24 hours. Now being loaded with IV amiodarone. I believe a reasonable plan is to continue this through the weekend and consider another attempt at electrical cardioversion early next week unless the amiodarone converts her prior to that. If this strategy fails then she will simply need EP consultation or accept chronic atrial fibrillation Wali Simmons MD [facility] Subjective Date/time seen: Date of service: 10/15/21 09:59 Interval history: Follow-up visit in this 81-year-old lady with: Coronary and valvular heart disease she is admitted to the hospital with persistent atrial fibrillation. She was previously on beta-ysabel treatment. Transitioned to sotalol earlier in the weekend cardioverted to sinus rhythm. Unfortunately after about 24 hours reverted back to AFib RVR. Sotalol was discontinued and transitioned to amiodarone as it was ineffective. She is now on intravenous amiodarone/Day # 2.. She is very comfortable asymptomatic Nery and watching television. Also receiving some p.o. diltiazem to per also assist with rate control Exam Const: General: comfortable and no acute distress Other: Pleasant comfortable elderly lady no distress HENMT: Mouth: Yes moist mucous membranes Eyes: Sclera: sclerae normal Pupils: Equal, round and reactive pupils present Neck: Neck: supple Resp: Effort & Inspection: normal respiratory effort Auscultation: clear to auscultation bilaterally Cardio: Rhythm: abnormal rhythm irregularly irregular GI: GI Palp: Yes Soft to palpation Auscultation: normal bowel sounds Skin: General skin exam: normal color Neuro: Other: Normal cognition Objective Data Vital Signs Vital Signs: Vital Signs - 24 hr 10/14/21 10:00 10/14/21 12:00 10/14/21 14:26 Temperature 36.3 C L Pulse Rate 102 H 94 89 Respiratory Rate 16 Blood Pressure 111/53 L Pulse Oximetry 96 Oxygen Delivery 10/14/21 12:00 10/14/21 15:12 10/14/21 16:00 Temperature 36.7 C Pulse Rate 99 96 103 H Respiratory Rate 14 Blood Pressure 126/63 Pulse Oximetry 97 Oxygen Delivery 10/14/21 16:40 10/14/21 18:00 10/14/21 20:00 Temperature 36.6 C Pulse Rate 98 90 88 Respiratory Rate 14 Blood Pressure 113/54 L Pulse Oximetry 97 Oxygen Delivery 10/14/21 20:00 10/14/21 20:00 10/14/21 21:34 Temperature Pulse Rate 99 99 110 H Respiratory Rate 18 Blood Pressure Pulse Oximetry 97 Oxygen Delivery Room Air 10/15/21 00:00 10/15/21 00:00 10/15/21 00:00 Temperature 36.5 C Pulse Rate 97 97 91 Respiratory Rate 18 12 Blood Pressure 119/66 Pulse Oximetry 97 94 Oxygen Delivery Room Air 10/15/21 02:49 10/15/21 02:00 10/15/21 03:56 Temperature 36.4 C Pulse Rate 94 84 92 Respiratory Rate 14 Blood Pressure 110/65 Pulse Oximetry 100 Oxygen Delivery 10/15/21 04:00 10/15/21 04:00 10/15/21 06:00 Temperature Pulse Rate 94 94 92 Respiratory Rate 14 Blood Pressure Pulse Oximetry 100 Oxygen Delivery Room Air 10/15/21 08:00 Temperature 36.4 C Pulse Rate 86 Respiratory Rate 20 Blood Pressure 124/66 Pulse Oximetry 99 Oxygen Delivery Intake/Output Intake/Output: Intake & Output 10/12/21 10/13/21 10/14/21 10/15/21 23:59 23:59 23:59 23:59
--- NOTE | 2021-10-15 10:19 | PM.IMPN ---
Progress Note: A&P Assessment and Plan (1) Paroxysmal atrial fibrillation: Code(s): I48.0 - Paroxysmal atrial fibrillation Status: Acute Assessment and Plan: Successful LOIS with cardioversion completed 10/12/2021 back on AFib 10/13/2021 on sotalol back to afib. Started on amiodarone 10/14/2021 Cardiology following continues on amiodarone drip (2) Atherosclerotic heart disease of [place] coronary artery with other forms of angina pectoris: Code(s): I25.118 - Atherosclerotic heart disease of [place] coronary artery with other forms of angina pectoris Status: Acute Assessment and Plan: cont lipitor, plavix, imdur (3) Gastro-esophageal reflux disease without esophagitis: Code(s): K21.9 - Gastro-esophageal reflux disease without esophagitis Status: Acute Assessment and Plan: cont ppi, controlled (4) Major depressive disorder, single episode, unspecified: Code(s): F32.9 - Major depressive disorder, single episode, unspecified Status: Acute Assessment and Plan: Continue Effexor (5) Restless legs syndrome: Code(s): G25.81 - Restless legs syndrome Status: Acute Assessment and Plan: Continue ropinirole (6) Type 2 diabetes mellitus with hyperglycemia: Qualifiers: Diabetes mellitus group home insulin use: unspecified [facility] inspector insulin use status Qualified Code(s): E11.65 - Type 2 diabetes mellitus with hyperglycemia Code(s): E11.65 - Type 2 diabetes mellitus with hyperglycemia Status: Acute Assessment and Plan: Accu-Cheks plus sliding scale insulin, a1c 8.7 (7) Mixed hyperlipidemia: Code(s): E78.2 - Mixed hyperlipidemia Status: Acute Assessment and Plan: Continue Lipitor (8) Essential (primary) hypertension: Code(s): I10 - Essential (primary) hypertension Status: Acute Assessment and Plan: Controlled Plan Full code DVT prophylaxis with Eliquis Subjective Date/time seen: 10/15/21 10:19 Interval history: HPI:81-year-old female with past medical history significant for coronary artery disease and stroke about 3 weeks ago is presenting with a 2 to three-day history of generally feeling unwell.? She reports some shortness of breath and chest tightness, does not appear to be exertional or postprandial.? She denies headaches or vision changes.? She denies nausea vomiting or diarrhea.? No fevers or chills.? Looking over records from [place], she appears to have paroxysmal atrial fibrillation essentially controlled on metoprolol at her discharge from her CVA.? She reports no residual deficits from the CVA.? She did undergo an interventional revascularization procedure that was successful. In the ER, the patient found to be in AFib with RVR.? Chest x-ray did show some vascular congestion as well.? She was given Lasix and Lopressor 5 mg IV as well as metoprolol 50 mg p.o. and symptoms appeared to resolve. Cardiology was consulted and discontinued metoprolol in favor of sotalol with a goal of keeping the patient in sinus rhythm as opposed AFib 10/13/2021 she had cardioversion done yesterday. Remained in sinus rhythm until 02 02 this morning include back to atrial fibrillation with RVR. See is on sotalol as ordered by the cardiology was following the patient during the hospital stay. 10/14/2021 patient was in Cardizem drip overnight. Remains on atrial fibrillation but rate control. She has been started on amiodarone drip this morning. Concern with amiodarone long-term use by her today. All the questions answered during the visit 10/15/2021. No overnight events. Remains on amiodarone drip. Rate controlled AFib on telemetry. Review of Systems Review of Systems: All systems reviewed & are unremarkable except as noted in HPI and below Exam Narrative: General: No acute distress, alert and oriented per baseline HEENT: Atraumatic, normocephalic, mucous membran
[2021-10-15 11:29] LABS: Glucose Point of Care 242 mg/dl (65-105)
[2021-10-15 17:35] LABS: Glucose Point of Care 249 mg/dl (65-105)
[2021-10-15] MEDS: FLUTICASONE PROPIONATE 0.05% NA SPR 16 GM BTL (*BKC) 2 SPRAY NASAL (17:57)
[2021-10-15 20:42] LABS: Glucose Point of Care 269 mg/dl (65-105)
[2021-10-15] MEDS: ATORVASTATIN 40 MG TABLET 80 MG PO (21:40)
[2021-10-15] MEDS: rOPINIRole HCL 1 MG TABLET 3 MG PO (21:40)
[2021-10-16] VITALS (15 sets, daily range): BP systolic 108–142; BP diastolic 55–83; PULSE 81–120; RESP 16–20; TEMP 36.2–37.1; O2SAT 16–99
[2021-10-16] MEDS: AMIODARONE 360 MG/D5W 200 ML 360 MG/200 ML BAG 16.67 MG IV CONT ×2 (02:34→14:59)
[2021-10-16] MEDS: dilTIAZem HCL 60 MG TABLET PO ×3 (06:08→21:55)
[2021-10-16 07:50] LABS: Glucose Point of Care 232 mg/dl (65-105)
--- NOTE | 2021-10-16 09:16 | PM.IMPN ---
Progress Note: A&P Assessment and Plan (1) Paroxysmal atrial fibrillation: Code(s): I48.0 - Paroxysmal atrial fibrillation Status: Acute Assessment and Plan: Successful LOIS with cardioversion completed 10/12/2021 back on AFib 10/13/2021 on sotalol back to afib. sotalol was discontinued and patient was started on IV amiodarone On 10/14/2021which will be transition to oral amiodarone on 10/17/2021. Monitor vital signs, I&Os, neuro status, patient is a fall risk and patient is a bleeding risk Monitor PTT, Serum electrolytes, and cbc Keep serum potassium >4 and keep magnesium >2 Monitor anticoagulation therapy Consult Cardiology for further management, appreciate assistance and recommendations cardiology plans for the cardioversion on 10/17/2021 (2) Atherosclerotic heart disease of [place] coronary artery with other forms of angina pectoris: Code(s): I25.118 - Atherosclerotic heart disease of [place] coronary artery with other forms of angina pectoris Status: Acute Assessment and Plan: cont lipitor, plavix, imdur (3) Gastro-esophageal reflux disease without esophagitis: Code(s): K21.9 - Gastro-esophageal reflux disease without esophagitis Status: Acute Assessment and Plan: cont ppi, controlled (4) Major depressive disorder, single episode, unspecified: Code(s): F32.9 - Major depressive disorder, single episode, unspecified Status: Acute Assessment and Plan: Continue Effexor (5) Restless legs syndrome: Code(s): G25.81 - Restless legs syndrome Status: Acute Assessment and Plan: Continue ropinirole (6) Type 2 diabetes mellitus with hyperglycemia: Qualifiers: Diabetes mellitus [facility] insulin use: unspecified [facility] insulin use status Qualified Code(s): E11.65 - Type 2 diabetes mellitus with hyperglycemia Code(s): E11.65 - Type 2 diabetes mellitus with hyperglycemia Status: Acute Assessment and Plan: Insulin Lispro sliding scale, Accu-checks qAc and HS and Hold oral hypoglycemics hemoglobin A1c 8.7 (7) Mixed hyperlipidemia: Code(s): E78.2 - Mixed hyperlipidemia Status: Acute Assessment and Plan: Continue Lipitor (8) Essential (primary) hypertension: Code(s): I10 - Essential (primary) hypertension Status: Acute Assessment and Plan: Controlled Plan Full code DVT prophylaxis with Eliquis Subjective Date/time seen: 10/16/21 09:17 patient is doing well this morning. She is sitting upright in bed with no oxygen on and heart rate is controlled. Continues to be irregular. Cardiology continues to be on the case. Patient will remain on amiodarone drip with a loading dose and she will stay for the weekend. Discussions about possible cardioversion in the future. Patient may need to speak with an curatorial specialist. Discussed this in depth with the patient and her spouse at bedside. Sotalol was discontinued and transition to amiodarone upon the patient's admission. She will be transition to oral amiodarone on 10/17/2021. Review of Systems Review of Systems: All systems reviewed & are unremarkable except as noted in HPI and below Exam Narrative: General: No acute distress. Mental Status: Awake, alert and oriented to person, place, and time with clear speech. Skin: Skin in warm, dry and intact without rashes or lesions. Head: Normocephalic and atraumatic. Eyes: Conjunctivae are clear without exudates or hemorrhage. Sclera is non-icteric. EOM are intact, PERRLA. Ears: The external ear and canal are non-tender and without swelling or discharge. Nose: Nasal mucosa is pink and moist. Septum midline. Nares patent bilaterally. Throat: Oral mucosa pink and moist with good dentition. Tongue midline. Neck: The neck supple without adenopathy. Trachea midline. No JVD. Cardiac: S1 and S2 Irregular rate and rhythm heart rate sustains 120s at rest, 140s with activi
[2021-10-16] MEDS: VENLAFAXINE HCL 75 MG TABLET BY MOUTH ×2 (09:51→20:51)
[2021-10-16] MEDS: CYANOCOBALAMIN 1,000 MCG TABLET 1000 MCG PO (09:51)
[2021-10-16] MEDS: CHOLECALCIFEROL 1,000 UNITS TABLET 2000 UNITS PO (09:51)
[2021-10-16] MEDS: CALCIUM CARBONATE (OSCAL) 500 MG TABLET PO (09:51)
[2021-10-16] MEDS: ISOSORBIDE MONONITRATE 60 MG TAB.ER.24H PO (09:51)
[2021-10-16] MEDS: PANTOPRAZOLE 40 MG TABLET PO (09:52)
[2021-10-16] MEDS: APIXABAN 5 MG TABLET PO ×2 (09:52→20:51)
[2021-10-16] MEDS: MAGNESIUM OXIDE 400 MG TABLET PO (09:52)
[2021-10-16] MEDS: INSULIN GLARGINE (*BKC) 100 UNITS/ML 30 UNITS SUB-Q (09:52)
[2021-10-16] MEDS: FLUTICASONE PROPIONATE 0.05% NA SPR 16 GM BTL (*BKC) 2 SPRAY NASAL (09:52)
[2021-10-16] MEDS: INSULIN ASPART (*BKC) 100 UNITS/ML SUB-Q ×6 (09:53→17:43)
[2021-10-16 12:08] LABS: Glucose Point of Care 283 mg/dl (65-105)
--- NOTE | 2021-10-16 12:39 | PM.PNCARD ---
Progress Note: A&P Assessment and Plan (1) Paroxysmal atrial fibrillation: Code(s): I48.0 - Paroxysmal atrial fibrillation Status: Acute Assessment and Plan: Refractory atrial fibrillation with rapid ventricular response to multiple previous medications failed sotalol. Currently on IV amiodarone. Transition to oral regimen provided heart rate remains acceptable. Remains on diltiazem 60 mg p.o. q.8 hours. Consider increasing to 90 mg p.o. q.8 hours, however, while BP stable at present given lack of favorable response to medical therapy in the past less heart rate sustained greater than 120 beats per minute will make no change at this time. Continue anticoagulation. Plan for cardioversion when he morning, NPO after midnight Monday night. Change to p.o. amiodarone tomorrow morning 400 mg p.o. b.i.d. we discussed relative risks and benefits with amiodarone short term but most directly long-term. (2) Acute diastolic CHF (congestive heart failure): Code(s): I50.31 - Acute diastolic (congestive) heart failure Status: Acute Assessment and Plan: Compensated at this time. Euvolemic. Off diuretic therapy. (3) Hypertension associated with diabetes: Code(s): E11.59 - Type 2 diabetes mellitus with other circulatory complications; I10 - Essential (primary) hypertension Status: Acute Assessment and Plan: Stable. Avoid hypotension. Continue current medical therapy. (4) Mitral insufficiency and aortic stenosis: Code(s): I08.0 - Rheumatic disorders of both mitral and aortic valves Status: Acute Assessment and Plan: Stable. (5) History of stroke: Code(s): Z86.73 - Personal history of transient ischemic attack (TIA), and cerebral infarction without residual deficits Status: Acute Assessment and Plan: Continue anticoagulation. Subjective Date/time seen: Date of service: 10/16/21 12:39 Interval history: Follow-up visit in this 81-year-old lady with: Coronary and valvular heart disease she is admitted to the hospital with persistent atrial fibrillation. She was previously on beta-ysabel treatment. Transitioned to sotalol earlier in the weekend cardioverted to sinus rhythm. Unfortunately after about 24 hours reverted back to AFib RVR. Sotalol was discontinued and transitioned to amiodarone as it was ineffective. She is now on intravenous amiodarone/Day # 3 Today, she remains in AFib with RVR heart rates in the 100s to 120s at rest up to the 140s with activity. Patient is otherwise asymptomatic. Denies shortness of breath, palpitations or chest pain. at bedside. Very lengthy discussion held with regards to plan of care, medication risks and benefits specifically amiodarone. All questions answered to their satisfaction. No new issues overnight. Review of Systems Constitutional: Constitutional: Reports no additional constitutional complaints and Denies fever(s) Comments: No palpitation, chest pain, shortness of breath. No fevers or chills. No bleeding. Eyes: Eyes: Reports no additional eye complaints ENT: Reports system reviewed and no additional complaints, except as documented Cardiovascular: Cardiovascular: Reports as per HPI, Denies chest pain, Denies pedal edema, Denies lightheadedness and Denies dyspnea Respiratory: Respiratory: Denies chest congestion and Denies dyspnea Gastrointestinal: Gastrointestinal: Reports no additional gastrointestinal complaints, Denies abdominal pain and Denies hematochezia Musculoskeletal: Musculoskeletal: Reports no additional musculoskeletal complaints Integumentary/Breasts: Skin/Breast: Reports system reviewed and no additional complaints, except as docu Neurologic: Reports system reviewed and no additional complaints, except as documented, Reports as per HPI, Denies behavioral changes and Denies confusion Psychiatric: Psychiatric: Denies behavioral changes and Denies confusion Endocri
[2021-10-16 16:28] LABS: Glucose Point of Care 262 mg/dl (65-105)
[2021-10-16 17:32] LABS: Glucose Point of Care 228 mg/dl (65-105)
[2021-10-16] MEDS: ATORVASTATIN 40 MG TABLET 80 MG PO (20:51)
[2021-10-16] MEDS: rOPINIRole HCL 1 MG TABLET 3 MG PO (20:51)
[2021-10-16 20:56] LABS: Glucose Point of Care 188 mg/dl (65-105)
[2021-10-17] VITALS (17 sets, daily range): BP systolic 110–145; BP diastolic 47–84; PULSE 90–132; RESP 16–22; TEMP 36.3–37; O2SAT 93–98
[2021-10-17] MEDS: AMIODARONE 360 MG/D5W 200 ML 360 MG/200 ML BAG 16.67 MG IV CONT (02:45)
[2021-10-17] MEDS: dilTIAZem HCL 60 MG TABLET PO ×3 (05:27→21:33)
--- NOTE | 2021-10-17 07:09 | PM.IMPN ---
Progress Note: A&P Assessment and Plan (1) Paroxysmal atrial fibrillation: Code(s): I48.0 - Paroxysmal atrial fibrillation Status: Acute Assessment and Plan: Successful LOIS with cardioversion completed 10/12/2021 back on AFib 10/13/2021 on sotalol back to afib. sotalol was discontinued and patient was started on IV amiodarone On 10/14/2021which will be transition to oral amiodarone on 10/17/2021. Monitor vital signs, I&Os, neuro status, patient is a fall risk and patient is a bleeding risk Monitor PTT, Serum electrolytes, and cbc Keep serum potassium >4 and keep magnesium >2 Monitor anticoagulation therapy Consult Cardiology for further management, appreciate assistance and recommendations cardiology plans for the cardioversion on 10/18/2021 (2) Atherosclerotic heart disease of [place] coronary artery with other forms of angina pectoris: Code(s): I25.118 - Atherosclerotic heart disease of [place] coronary artery with other forms of angina pectoris Status: Acute Assessment and Plan: cont lipitor, plavix, imdur (3) Gastro-esophageal reflux disease without esophagitis: Code(s): K21.9 - Gastro-esophageal reflux disease without esophagitis Status: Acute Assessment and Plan: cont ppi, controlled (4) Major depressive disorder, single episode, unspecified: Code(s): F32.9 - Major depressive disorder, single episode, unspecified Status: Acute Assessment and Plan: Continue Effexor (5) Restless legs syndrome: Code(s): G25.81 - Restless legs syndrome Status: Acute Assessment and Plan: Continue ropinirole (6) Type 2 diabetes mellitus with hyperglycemia: Qualifiers: Diabetes mellitus snf insulin use: unspecified snf insulin use status Qualified Code(s): E11.65 - Type 2 diabetes mellitus with hyperglycemia Code(s): E11.65 - Type 2 diabetes mellitus with hyperglycemia Status: Acute Assessment and Plan: Insulin Lispro sliding scale, Accu-checks qAc and HS and Hold oral hypoglycemics hemoglobin A1c 8.7 (7) Mixed hyperlipidemia: Code(s): E78.2 - Mixed hyperlipidemia Status: Acute Assessment and Plan: Continue Lipitor (8) Essential (primary) hypertension: Code(s): I10 - Essential (primary) hypertension Status: Acute Assessment and Plan: Controlled Plan Full code DVT prophylaxis with Eliquis Subjective Date/time seen: 10/17/21 07:09 patient is alert and oriented. Plan for cardioversion on 10/18/2021. Remains on amiodarone drip, plans to transition to oral per Cardiology. No acute events reported by RN during the night. Review of Systems Review of Systems: All systems reviewed & are unremarkable except as noted in HPI and below Exam Narrative: General: No acute distress. Mental Status: Awake, alert and oriented to person, place, and time with clear speech. Skin: Skin in warm, dry and intact without rashes or lesions. Head: Normocephalic and atraumatic. Eyes: Conjunctivae are clear without exudates or hemorrhage. Sclera is non-icteric. EOM are intact, PERRLA. Ears: The external ear and canal are non-tender and without swelling or discharge. Nose: Nasal mucosa is pink and moist. Septum midline. Nares patent bilaterally. Throat: Oral mucosa pink and moist with good dentition. Tongue midline. Neck: The neck supple without adenopathy. Trachea midline. No JVD. Cardiac: S1 and S2 Irregular rate and rhythm heart rate sustains 120s at rest, 140s with activity. No murmurs, gallops, or rubs auscultated. Respiratory: Chest wall symmetric, nontender and without deformity or trauma. Respirations even and unlabored. Lung sounds are clear to auscultation in all lobes bilaterally without wheezes, rhonchi, or rales. Abdominal: Abdomen soft, round and non-tender to palpation. Bowel sounds present and normoactive in all 4 quadrants. Spine: Neck and back with grossl
[2021-10-17 08:10] LABS: Glucose Point of Care 255 mg/dl (65-105)
[2021-10-17] MEDS: INSULIN ASPART (*BKC) 100 UNITS/ML SUB-Q ×6 (08:59→18:21)
[2021-10-17] MEDS: MAGNESIUM OXIDE 400 MG TABLET PO (09:08)
[2021-10-17] MEDS: ISOSORBIDE MONONITRATE 60 MG TAB.ER.24H PO (09:08)
[2021-10-17] MEDS: PANTOPRAZOLE 40 MG TABLET PO (09:08)
[2021-10-17] MEDS: VENLAFAXINE HCL 75 MG TABLET BY MOUTH ×2 (09:09→21:33)
[2021-10-17] MEDS: CALCIUM CARBONATE (OSCAL) 500 MG TABLET PO (09:09)
[2021-10-17] MEDS: CYANOCOBALAMIN 1,000 MCG TABLET 1000 MCG PO (09:09)
[2021-10-17] MEDS: FLUTICASONE PROPIONATE 0.05% NA SPR 16 GM BTL (*BKC) 2 SPRAY NASAL (09:09)
[2021-10-17] MEDS: CHOLECALCIFEROL 1,000 UNITS TABLET 2000 UNITS PO (09:09)
[2021-10-17] MEDS: APIXABAN 5 MG TABLET PO ×2 (09:10→21:34)
[2021-10-17] MEDS: INSULIN GLARGINE (*BKC) 100 UNITS/ML 30 UNITS SUB-Q (09:14)
[2021-10-17 12:42] LABS: Glucose Point of Care 232 mg/dl (65-105)
[2021-10-17] MEDS: AMIODARONE HCL 200 MG TABLET 400 MG PO ×2 (13:01→18:20)
--- NOTE | 2021-10-17 14:09 | PM.PNCARD ---
Progress Note: A&P Assessment and Plan (1) Paroxysmal atrial fibrillation: Code(s): I48.0 - Paroxysmal atrial fibrillation Status: Acute Assessment and Plan: Refractory atrial fibrillation with rapid ventricular response to multiple previous medications failed sotalol. Currently on IV amiodarone. Transition to oral regimen provided heart rate remains acceptable. Remains on diltiazem 60 mg p.o. q.8 hours. Consider increasing to 90 mg p.o. q.8 hours, however, while BP stable at present given lack of favorable response to medical therapy in the past less heart rate sustained greater than 120 beats per minute will make no change at this time. Continue anticoagulation. Plan for cardioversion when he morning, NPO after midnight Monday night to attempt scientology of sinus rhythm. Change to p.o. amiodarone 400 mg p.o. b.i.d. and discontinue IV amiodarone. Continue systemic anticoagulation without interruption. She must receive this in order to proceed with cardioversion. Patient verbalized understanding and is in agreement with the plan of care. Risks and benefits discussed. All questions answered to her satisfaction. (2) Acute diastolic CHF (congestive heart failure): Code(s): I50.31 - Acute diastolic (congestive) heart failure Status: Acute Assessment and Plan: Compensated at this time. Euvolemic. Off diuretic therapy. (3) Hypertension associated with diabetes: Code(s): E11.59 - Type 2 diabetes mellitus with other circulatory complications; I10 - Essential (primary) hypertension Status: Acute Assessment and Plan: Stable. Avoid hypotension. Continue current medical therapy. (4) Mitral insufficiency and aortic stenosis: Code(s): I08.0 - Rheumatic disorders of both mitral and aortic valves Status: Acute Assessment and Plan: Stable. (5) History of stroke: Code(s): Z86.73 - Personal history of transient ischemic attack (TIA), and cerebral infarction without residual deficits Status: Acute Assessment and Plan: Continue anticoagulation. Subjective Date/time seen: Date of service: 10/17/21 14:09 Interval history: Follow-up visit in this 81-year-old lady with: Coronary and valvular heart disease she is admitted to the hospital with persistent atrial fibrillation. She was previously on beta-ysabel treatment. Transitioned to sotalol earlier in the weekend cardioverted to sinus rhythm. Unfortunately after about 24 hours reverted back to AFib RVR. Sotalol was discontinued and transitioned to amiodarone as it was ineffective. She is now on intravenous amiodarone/Day # 3 No issues overnight. Remains intermittently tachycardic heart rate 100 to 130s in AFib. Remains on IV amiodarone at this time. No chest pain, shortness of breath or palpitations. Hemodynamically stable. Review of Systems Constitutional: Constitutional: Reports no additional constitutional complaints and Denies fever(s) Eyes: Eyes: Reports no additional eye complaints ENT: Reports system reviewed and no additional complaints, except as documented Cardiovascular: Cardiovascular: Reports as per HPI, Denies chest pain, Denies pedal edema, Denies lightheadedness and Denies dyspnea Respiratory: Respiratory: Denies chest congestion and Denies dyspnea Gastrointestinal: Gastrointestinal: Reports no additional gastrointestinal complaints, Denies abdominal pain and Denies hematochezia Musculoskeletal: Musculoskeletal: Reports no additional musculoskeletal complaints Integumentary/Breasts: Skin/Breast: Reports system reviewed and no additional complaints, except as docu Neurologic: Reports system reviewed and no additional complaints, except as documented, Reports as per HPI, Denies behavioral changes and Denies confusion Psychiatric: Psychiatric: Denies behavioral changes and Denies confusion Endocrine: Endocrine: Reports no additional endocrine complaints Hemat
[2021-10-17 17:35] LABS: Glucose Point of Care 272 mg/dl (65-105)
[2021-10-17 21:00] LABS: Glucose Point of Care 253 mg/dl (65-105)
[2021-10-17] MEDS: rOPINIRole HCL 1 MG TABLET 3 MG PO (21:33)
[2021-10-17] MEDS: ATORVASTATIN 40 MG TABLET 80 MG PO (21:34)
[2021-10-18] VITALS (28 sets, daily range): BP systolic 111–138; BP diastolic 40–81; PULSE 79–143; RESP 12–25; TEMP 35.8–36.8; O2SAT 91–100
[2021-10-18] MEDS: dilTIAZem HCL 60 MG TABLET PO ×3 (06:13→21:03)
[2021-10-18 07:55] LABS: Glucose Point of Care 200 mg/dl (65-105)
[2021-10-18] MEDS: ISOSORBIDE MONONITRATE 60 MG TAB.ER.24H PO (08:23)
[2021-10-18] MEDS: CHOLECALCIFEROL 1,000 UNITS TABLET 2000 UNITS PO (08:23)
[2021-10-18] MEDS: MAGNESIUM OXIDE 400 MG TABLET PO (08:23)
[2021-10-18] MEDS: INSULIN GLARGINE (*BKC) 100 UNITS/ML 30 UNITS SUB-Q (08:23)
[2021-10-18] MEDS: PANTOPRAZOLE 40 MG TABLET PO (08:23)
[2021-10-18] MEDS: VENLAFAXINE HCL 75 MG TABLET BY MOUTH ×2 (08:24→21:03)
[2021-10-18] MEDS: APIXABAN 5 MG TABLET PO ×2 (08:24→21:03)
[2021-10-18] MEDS: AMIODARONE HCL 200 MG TABLET 400 MG PO ×2 (08:24→17:28)
[2021-10-18] MEDS: CYANOCOBALAMIN 1,000 MCG TABLET 1000 MCG PO (08:24)
[2021-10-18] MEDS: CALCIUM CARBONATE (OSCAL) 500 MG TABLET PO (08:24)
[2021-10-18] MEDS: FLUTICASONE PROPIONATE 0.05% NA SPR 16 GM BTL (*BKC) 2 SPRAY NASAL (08:24)
[2021-10-18 09:16] LABS: Anion Gap 10 mmol/L (8-16); Blood Urea Nitrogen 17 mg/dL (7-17); Calcium 9.2 mg/dL (8.4-10.2); Carbon Dioxide 26 mmol/L (22-30); Chloride 101 mmol/L (98-107); Estimated CRCL calculation 57 ml/min; Estimated Glomerular Filt Rate > 60; Glucose 221 mg/dL (65-110); Potassium 3.4 mmol/L (3.4-5.0); Sodium 137 mmol/L (137-145)
--- NOTE | 2021-10-18 11:02 | PM.IMPN ---
Progress Note: A&P Assessment and Plan (1) Paroxysmal atrial fibrillation: Code(s): I48.0 - Paroxysmal atrial fibrillation Status: Acute Assessment and Plan: Successful LOIS with cardioversion completed 10/12/2021 back on AFib 10/13/2021 on sotalol back to afib. Started on amiodarone 10/14/2021 Cardiology following treated with amiodarone drip and transition to oral amiodarone. Plan for re-attempt cardioversion today 10/18/2021 (2) Atherosclerotic heart disease of [place] coronary artery with other forms of angina pectoris: Code(s): I25.118 - Atherosclerotic heart disease of [place] coronary artery with other forms of angina pectoris Status: Acute Assessment and Plan: cont lipitor, plavix, imdur (3) Gastro-esophageal reflux disease without esophagitis: Code(s): K21.9 - Gastro-esophageal reflux disease without esophagitis Status: Acute Assessment and Plan: cont ppi, controlled (4) Major depressive disorder, single episode, unspecified: Code(s): F32.9 - Major depressive disorder, single episode, unspecified Status: Acute Assessment and Plan: Continue Effexor (5) Restless legs syndrome: Code(s): G25.81 - Restless legs syndrome Status: Acute Assessment and Plan: Continue ropinirole (6) Type 2 diabetes mellitus with hyperglycemia: Qualifiers: Diabetes mellitus retirement insulin use: unspecified manager long term care insulin use status Qualified Code(s): E11.65 - Type 2 diabetes mellitus with hyperglycemia Code(s): E11.65 - Type 2 diabetes mellitus with hyperglycemia Status: Acute Assessment and Plan: Accu-Cheks plus sliding scale insulin, a1c 8.7 (7) Mixed hyperlipidemia: Code(s): E78.2 - Mixed hyperlipidemia Status: Acute Assessment and Plan: Continue Lipitor (8) Essential (primary) hypertension: Code(s): I10 - Essential (primary) hypertension Status: Acute Assessment and Plan: Controlled Plan Full code DVT prophylaxis with Eliquis Subjective Date/time seen: 10/18/21 11:02 Interval history: HPI:81-year-old female with past medical history significant for coronary artery disease and stroke about 3 weeks ago is presenting with a 2 to three-day history of generally feeling unwell.? She reports some shortness of breath and chest tightness, does not appear to be exertional or postprandial.? She denies headaches or vision changes.? She denies nausea vomiting or diarrhea.? No fevers or chills.? Looking over records from [place], she appears to have paroxysmal atrial fibrillation essentially controlled on metoprolol at her discharge from her CVA.? She reports no residual deficits from the CVA.? She did undergo an interventional revascularization procedure that was successful. In the ER, the patient found to be in AFib with RVR.? Chest x-ray did show some vascular congestion as well.? She was given Lasix and Lopressor 5 mg IV as well as metoprolol 50 mg p.o. and symptoms appeared to resolve. Cardiology was consulted and discontinued metoprolol in favor of sotalol with a goal of keeping the patient in sinus rhythm as opposed AFib 10/13/2021 she had cardioversion done yesterday. Remained in sinus rhythm until 11 30 this morning include back to atrial fibrillation with RVR. See is on sotalol as ordered by the cardiology was following the patient during the hospital stay. 10/14/2021 patient was in Cardizem drip overnight. Remains on atrial fibrillation but rate control. She has been started on amiodarone drip this morning. Concern with amiodarone long-term use by her today. All the questions answered during the visit 10/15/2021. No overnight events. Remains on amiodarone drip. Rate controlled AFib on telemetry. 10/18/2021 no overnight events. On oral amiodarone. Remains in atrial fibrillation with intermittent RVR. Going for cardioversion this afternoon. Debbie
--- NOTE | 2021-10-18 11:30 | ECG_ITS ---
Measurements Intervals [place] Rate: 83 P: 52 ME: 192 QRS: -19 QRSD: 110 T: 69 QT: 328 QTc: 387 Interpretive Statements SINUS RHYTHM NONSPECIFIC T-WAVE ABNORMALITY LEFTWARD AXIS COMPARED TO ECG 10/13/2021 08:51:30 AXIS IS MORE LEFTWARD Electronically Signed On 10-18-2021 14:07:29 CDT by Wali Simmons M.D.
[2021-10-18] MEDS: POTASSIUM CHLORIDE 20 MEQ TABLET 40 MEQ (11:37)
--- NOTE | 2021-10-18 11:50 | WPDMODSED ---
Moderate Sedation Note-Pt Data Patient Data Diagnosis: Atrial fibrillation Present Complaint: Atrial fibrillation Procedure to be performed/Plan: 1. Electrical cardioversion 2. Moderate sedation Allergies Allergy/AdvReac Type Severity Reaction Status Date / Time clavulanic acid Allergy Intermediate PURITIS Verified 09/14/21 11:36 amoxicillin Allergy Unknown Unknown Verified 09/14/21 11:36 amphetamine Allergy Unknown possible Verified 09/14/21 11:36 cause of pruritis, no rash- mild cefuroxime Allergy Unknown Unknown Verified 09/14/21 11:36 erythromycin base Allergy Unknown Unknown Verified 09/14/21 11:36 lodoxamide Allergy Unknown Nausea Verified 09/14/21 11:36 Home Medications Medication Instructions Recorded Confirmed Type calcium carbonate 600 mg calcium 600 mg PO DAILY 01/16/19 10/09/21 History (1,500 mg) tablet (Calcium) cholecalciferol (vitamin D3) 50 50 mcg PO DAILY 01/16/19 10/09/21 History mcg (2,000 unit) capsule coenzyme Q10 10 mg capsule (Co 10 mg PO ONCE 01/16/19 10/09/21 History Q-10) isosorbide mononitrate 60 mg 60 mg PO DAILY 01/16/19 10/09/21 History tablet,extended release 24 hr mecobalamin (vitamin B12) 1,000 1,000 mcg sublingual DAILY 01/16/19 10/09/21 History mcg disintegrating tablet,sublingual lancets 33 gauge #200 ea 11/20/19 10/09/21 Rx pantoprazole 40 mg tablet,delayed 40 mg PO QAM 12/02/19 10/09/21 History release fluticasone propionate 50 2 spray intranasal DAILY #16 grams 04/22/20 10/09/21 Rx mcg/actuation nasal spray,suspension blood sugar diagnostic (Contour #200 ea 10/26/20 10/09/21 Rx Next Test Strips) magnesium oxide 400 mg PO DAILY 10/26/20 10/09/21 History albuterol sulfate 90 mcg/actuation See Rx Instructions .Route 01/07/21 10/09/21 Rx aerosol inhaler .COMPLEX #8.5 ea nitroglycerin 0.4 mg sublingual 0.4 mg sublingual Q5M PRN chest 04/06/21 10/09/21 Rx tablet pain #25 tabs pen needle, diabetic 31 gauge x See Rx Instructions .Route 06/02/21 10/09/21 Rx 3/16 (BD Ultra-Fine Mini Pen .COMPLEX #400 ea Needle) venlafaxine 75 mg tablet See Rx Instructions .Route 06/15/21 10/09/21 Rx .COMPLEX #180 tabs insulin glargine 100 unit/mL (3 20 unit (0.2 mL) subcut QAM 90 10/05/21 10/09/21 Rx mL) subcutaneous pen (Basaglar days #30 mL KwikPen U-100 Insulin) insulin lispro 100 unit/mL 10 unit (0.1 mL) subcut 10/05/21 10/09/21 Rx subcutaneous pen (Humalog KwikPen USEASDIRECTD 90 days #45 mL (U-100) Insulin) atorvastatin 40 mg tablet 80 mg PO HS 10/09/21 10/09/21 History ropinirole 1 mg tablet 3 mg PO DAILY 10/09/21 10/09/21 History tobramycin 0.3 % eye drops 1 drp EACH EYE Q4H PRN dry eyes 10/09/21 10/09/21 History apixaban 5 mg tablet (Eliquis) 5 mg PO Q12HR 1 month #60 tabs 10/10/21 Rx sotalol 80 mg tablet 80 mg PO Q12HR 1 month #60 tabs 10/10/21 Rx Current Medications: Active Medications Amiodarone HCl (Amiodarone Hcl 200 Mg Tablet) 400 mg PO BID [facility] Last Admin: 10/18/21 08:24 Dose: 400 mg Apixaban (Apixaban 5 Mg Tablet) 5 mg PO Q12HR [facility] Last Admin: 10/18/21 08:24 Dose: 5 mg Atorvastatin Calcium (Atorvastatin 40 Mg Tablet) 80 mg PO HS [facility] Last Admin: 10/17/21 21:34 Dose: 80 mg Calcium Carbonate (Calcium Carbonate (Oscal) 500 Mg Tablet) 500 mg PO DAILY [facility] Stop: 11/09/21 08:59 Last Admin: 10/18/21 08:24 Dose: 500 mg Cyanocobalamin (Cyanocobalamin 1,000 Mcg Tablet) 1,000 mcg PO QAM [facility] Last Admin: 10/18/21 08:24 Dose: 1,000 mcg Dextrose (Dextrose 50% 25 Gm/50 Ml Syringe) 12.5 gm IV PUSH PRN PRN; Protocol PRN Reason: Hypoglycemia Diltiazem HCl (Diltiazem Hcl 60 Mg Tablet) 60 mg PO Q8HR [facility] Last Admin: 10/18/21 06:13 Dose: 60 mg Fluticasone Propionate (Fluticasone Propionate 0.05% Na Spr 16 Gm Btl (*Bkc)) 2 spray NASAL DAILY [facility] Last Admin: 10/18/21 08:24 Dose: 2 spray Glucagon (Glucagon For Inj 1 Mg Vial) 1 mg IM PRN PRN; Protocol PRN Reason: Hypoglycemia Glucose
--- NOTE | 2021-10-18 12:02 | WPDCARDVER ---
Cardioversion Cardioversion Date of procedure: 10/18/21 Procedure: 1. Electrocardioversion 2. Moderate sedation Pre-op diagnosis: Atrial fibrillation Post-op diagnosis: Same Indications: Atrial fibrillation Description of procedure: After discussing risks, benefits alternatives of procedure patient gave a via verbal and written informed consent. Risks discussed included skin irritation or burn, shocking into more problematic heart rhythm, , stroke, adverse reaction anesthesia. Continuous telemetry monitoring, pulse oxygenation and serial blood pressure assessments were established. After time-out was taken, procedure was started. Procedure start time 11:53 am Procedure stop time 12:05 p.m. Complications: None Blood loss: None Medications were administered patient was monitored by Cynthia pena RN Sedation: A total of 3 mg of Versed 75 mcg of fentanyl given in divided dosages Findings: Atrial fibrillation was confirmed. One hundred twenty-five joules of synchronized biphasic energy was used which restored sinus rhythm initially. Approximately 5 minutes later she did revert back into atrial fibrillation. Another round of synchronized biphasic energy at 125 joules were again provided which also restored sinus rhythm. At the time of this dictation, she was still in sinus rhythm. Conclusion: Successful anabaptism of sinus rhythm from atrial fibrillation using 125 joules of biphasic synchronized energy x2 Moderate sedation
--- NOTE | 2021-10-18 13:04 | SUR.PHASEII ---
report called to rupal imu rn. patient is alert but still drowsy, arowses to verbal stimuli and able to talk with me. vss will transfer back to room
--- NOTE | 2021-10-18 13:12 | PCPTNOTE ---
The patient treatment was not able to be completed due to patient out of room for procedure. Will plan to continue treatment per plan of care.
[2021-10-18] MEDS: fentaNYL CITRATE INJ (*CRX) 100 MCG/2 ML VIAL (15:19)
[2021-10-18] MEDS: MIDAZOLAM HCL (*CRX) 2 MG/2 ML VIAL 4 MG (15:24)
[2021-10-18 17:07] LABS: Glucose Point of Care 257 mg/dl (65-105)
[2021-10-18] MEDS: INSULIN ASPART (*BKC) 100 UNITS/ML SUB-Q ×2 (17:28→17:29)
[2021-10-18 20:03] LABS: Glucose Point of Care 285 mg/dl (65-105)
[2021-10-18] MEDS: ATORVASTATIN 40 MG TABLET 80 MG PO (21:02)
[2021-10-18] MEDS: rOPINIRole HCL 1 MG TABLET 3 MG PO (21:02)
[2021-10-19] VITALS (23 sets, daily range): BP systolic 108–132; BP diastolic 53–95; PULSE 71–128; RESP 18–20; TEMP 35.7–36.7; O2SAT 95–99
--- NOTE | 2021-10-19 00:27 | ECG_ITS ---
Measurements Intervals [place] Rate: 106 P: AR: 0 QRS: -14 QRSD: 96 T: 63 QT: 290 QTc: 385 Interpretive Statements ATRIAL FIBRILLATION WITH RAPID VENTRICULAR RESPONSE NONSPECIFIC T-WAVE ABNORMALITY ABNORMAL RHYTHM ECG ABNORMAL ECG COMPARED TO ECG 10/18/2021 12:06:02 ATRIAL FIBRILLATION NOW PRESENT Electronically Signed On 10-19-2021 12:05:59 CDT by Amarjit Chun M.D.
[2021-10-19 05:16] LABS: Basophils Percent Auto 0.6 % (0.2-1.2); Eosinophils Absolute Auto 0.2 K/mm3 (0-0.3); Eosinophils Percent Auto 3.5 % (0-4.4); Hematocrit 33.5 % (37.0-47.0); Hemoglobin 10.9 g/dL (12.0-15.0); Immature Granulocyte Absolute 0.02 K/mm3 (0.00-0.031); Immature Granulocyte Percent A 0.3 % (0-0.5); Lymphocytes Absolute Auto 1.81 K/mm3 (0.9-3.2); Mean Corpuscular HGB Conc 32.5 g/dl (32-36); Mean Corpuscular Hemoglobin 26.6 pg (26-34); Mean Corpuscular Volume 81.7 fl (80-100); Monocytes Absolute Auto 0.5 K/mm3 (0.1-0.6); Monocytes Percent Auto 7.4 % (2.6-8.5); Neutrophils Absolute Auto 3.7 K/mm3 (1.3-6.7); Neutrophils Percent Auto 59.2 % (45.5-73.1); Platelet Count Result 230 k/mm3 (150-375); Red Cell Distribution Width 13.1 % (11.5-14.5); White Blood Count 6.2 K/mm3 (4.5-10.0)
[2021-10-19 05:25] LABS: Alanine Aminotransferase 15 U/L (6-35); Albumin Level 3.7 g/dL (3.5-5.1); Alkaline Phosphatase 101 U/L (38-126); Anion Gap 10 mmol/L (8-16); Aspartate Amino Transferase 19 U/L (14-36); Bilirubin,Total 0.6 mg/dL (0.2-1.3); Blood Urea Nitrogen 18 mg/dL (7-17); Calcium 9.2 mg/dL (8.4-10.2); Carbon Dioxide 26 mmol/L (22-30); Chloride 101 mmol/L (98-107); Estimated CRCL calculation 57 ml/min; Estimated Glomerular Filt Rate > 60; Glucose 208 mg/dL (65-110); Magnesium 1.7 mg/dL (1.6-2.3); Potassium 3.5 mmol/L (3.4-5.0); Sodium 137 mmol/L (137-145)
[2021-10-19] MEDS: dilTIAZem HCL 60 MG TABLET PO (06:11)
[2021-10-19 07:31] LABS: Glucose Point of Care 237 mg/dl (65-105)
[2021-10-19] MEDS: INSULIN ASPART (*BKC) 100 UNITS/ML SUB-Q ×6 (09:24→16:40)
[2021-10-19] MEDS: CHOLECALCIFEROL 1,000 UNITS TABLET 2000 UNITS PO (09:25)
[2021-10-19] MEDS: INSULIN GLARGINE (*BKC) 100 UNITS/ML 30 UNITS SUB-Q (09:25)
[2021-10-19] MEDS: CYANOCOBALAMIN 1,000 MCG TABLET 1000 MCG PO (09:26)
[2021-10-19] MEDS: VENLAFAXINE HCL 75 MG TABLET BY MOUTH ×2 (09:26→20:58)
[2021-10-19] MEDS: CALCIUM CARBONATE (OSCAL) 500 MG TABLET PO (09:26)
[2021-10-19] MEDS: AMIODARONE HCL 200 MG TABLET 400 MG PO ×2 (09:26→16:41)
[2021-10-19] MEDS: APIXABAN 5 MG TABLET PO ×2 (09:26→20:58)
[2021-10-19] MEDS: FLUTICASONE PROPIONATE 0.05% NA SPR 16 GM BTL (*BKC) 2 SPRAY NASAL (09:27)
[2021-10-19] MEDS: PANTOPRAZOLE 40 MG TABLET PO (09:28)
[2021-10-19] MEDS: MAGNESIUM OXIDE 400 MG TABLET PO (09:28)
[2021-10-19] MEDS: ISOSORBIDE MONONITRATE 60 MG TAB.ER.24H PO (09:28)
--- NOTE | 2021-10-19 11:23 | PM.PNCARD ---
Progress Note: A&P Assessment and Plan (1) Paroxysmal atrial fibrillation: Code(s): I48.0 - Paroxysmal atrial fibrillation Status: Acute Assessment and Plan: Refractory atrial fibrillation with rapid ventricular response to multiple previous medications failed sotalol. Currently on IV amiodarone. Transition to oral regimen provided heart rate remains acceptable. Continue anticoagulation. Patient was formally on metoprolol. She may be going through some degree of beta-ysabel withdrawal which is possibly 1 reason why heart rate is so difficult to control. Continue the amiodarone but stop diltiazem. Interaction between diltiazem, rivaroxaban and Xarelto is noted any way. It makes more sense in my opinion given her coronary status to put her on metoprolol with amiodarone and therefore will start her on metoprolol 50 mg p.o. b.i.d. with 1st dose being now (2) Acute diastolic CHF (congestive heart failure): Code(s): I50.31 - Acute diastolic (congestive) heart failure Status: Acute Assessment and Plan: Compensated at this time. Euvolemic. Off diuretic therapy. (3) Hypertension associated with diabetes: Code(s): E11.59 - Type 2 diabetes mellitus with other circulatory complications; I10 - Essential (primary) hypertension Status: Acute Assessment and Plan: Stable. Avoid hypotension. Continue current medical therapy. (4) Mitral insufficiency and aortic stenosis: Code(s): I08.0 - Rheumatic disorders of both mitral and aortic valves Status: Acute Assessment and Plan: Stable. (5) History of stroke: Code(s): Z86.73 - Personal history of transient ischemic attack (TIA), and cerebral infarction without residual deficits Status: Acute Assessment and Plan: Continue anticoagulation. Subjective Date/time seen: 10/19/21 11:23 Interval history: Follow-up visit in this 81-year-old lady with: Coronary and valvular heart disease she is admitted to the hospital with persistent atrial fibrillation. Date of service 10/19/2021: Unfortunately she reverted back into atrial fibrillation overnight. Heart rate still fast. Otherwise denies any chest pain or shortness of breath. Review of Systems Constitutional: Constitutional: Reports no additional constitutional complaints and Denies fever(s) Eyes: Eyes: Reports no additional eye complaints Comments: No bleeding issues ENT: Reports system reviewed and no additional complaints, except as documented Cardiovascular: Cardiovascular: Reports as per HPI, Denies chest pain, Denies pedal edema, Denies lightheadedness and Denies dyspnea Respiratory: Respiratory: Denies chest congestion and Denies dyspnea Gastrointestinal: Gastrointestinal: Reports no additional gastrointestinal complaints, Denies abdominal pain and Denies hematochezia Musculoskeletal: Musculoskeletal: Reports no additional musculoskeletal complaints Integumentary/Breasts: Skin/Breast: Reports system reviewed and no additional complaints, except as docu Neurologic: Reports system reviewed and no additional complaints, except as documented, Reports as per HPI, Denies behavioral changes and Denies confusion Psychiatric: Psychiatric: Denies behavioral changes and Denies confusion Endocrine: Endocrine: Reports no additional endocrine complaints Hematologic/Lymphatic: Hematologic/Lymphatic: Reports no additional hematologic/lymphatic complaints Allergic/Immunologic: Allergic/Immunologic: Reports no additional allergic/immunologic complaints Exam Narrative: Looks stated age Const: General: cooperative, healthy appearing, comfortable and no acute distress; No confusion Orientation/consciousness: oriented to person, patient oriented x3 and No confusion Other: Pleasant comfortable elderly lady no distress HENMT: Mouth: Yes moist mucous membranes Eyes: Sclera: sclerae normal Pupils: Equal, round and reactive pupils prese
[2021-10-19 12:05] LABS: Glucose Point of Care 306 mg/dl (65-105)
[2021-10-19] MEDS: METOPROLOL TARTRATE 50 MG TAB PO ×2 (13:22→20:58)
[2021-10-19 16:50] LABS: Glucose Point of Care 204 mg/dl (65-105)
--- NOTE | 2021-10-19 16:55 | PM.IMPN ---
Progress Note: A&P Assessment and Plan (1) Paroxysmal atrial fibrillation: Code(s): I48.0 - Paroxysmal atrial fibrillation Status: Acute Assessment and Plan: Successful LOIS with cardioversion completed 10/12/2021 back on AFib 10/13/2021 on sotalol back to afib. Started on amiodarone 10/14/2021 Cardiology following treated with amiodarone drip and transition to oral amiodarone. status post re-attempt cardioversion 10/18/2021 back to AFib again since last night (2) Atherosclerotic heart disease of [place] coronary artery with other forms of angina pectoris: Code(s): I25.118 - Atherosclerotic heart disease of [place] coronary artery with other forms of angina pectoris Status: Acute Assessment and Plan: cont lipitor, plavix, imdur (3) Gastro-esophageal reflux disease without esophagitis: Code(s): K21.9 - Gastro-esophageal reflux disease without esophagitis Status: Acute Assessment and Plan: cont ppi, controlled (4) Major depressive disorder, single episode, unspecified: Code(s): F32.9 - Major depressive disorder, single episode, unspecified Status: Acute Assessment and Plan: Continue Effexor (5) Restless legs syndrome: Code(s): G25.81 - Restless legs syndrome Status: Acute Assessment and Plan: Continue ropinirole (6) Type 2 diabetes mellitus with hyperglycemia: Qualifiers: Diabetes mellitus intermediate insulin use: unspecified intermediate card tender insulin use status Qualified Code(s): E11.65 - Type 2 diabetes mellitus with hyperglycemia Code(s): E11.65 - Type 2 diabetes mellitus with hyperglycemia Status: Acute Assessment and Plan: Accu-Cheks plus sliding scale insulin, a1c 8.7 (7) Mixed hyperlipidemia: Code(s): E78.2 - Mixed hyperlipidemia Status: Acute Assessment and Plan: Continue Lipitor (8) Essential (primary) hypertension: Code(s): I10 - Essential (primary) hypertension Status: Acute Assessment and Plan: Controlled Plan Full code DVT prophylaxis with Eliquis Subjective Date/time seen: 10/19/21 16:55 Interval history: HPI:81-year-old female with past medical history significant for coronary artery disease and stroke about 3 weeks ago is presenting with a 2 to three-day history of generally feeling unwell.? She reports some shortness of breath and chest tightness, does not appear to be exertional or postprandial.? She denies headaches or vision changes.? She denies nausea vomiting or diarrhea.? No fevers or chills.? Looking over records from [place], she appears to have paroxysmal atrial fibrillation essentially controlled on metoprolol at her discharge from her CVA.? She reports no residual deficits from the CVA.? She did undergo an interventional revascularization procedure that was successful. In the ER, the patient found to be in AFib with RVR.? Chest x-ray did show some vascular congestion as well.? She was given Lasix and Lopressor 5 mg IV as well as metoprolol 50 mg p.o. and symptoms appeared to resolve. Cardiology was consulted and discontinued metoprolol in favor of sotalol with a goal of keeping the patient in sinus rhythm as opposed AFib 10/13/2021 she had cardioversion done yesterday. Remained in sinus rhythm until 11 30 this morning include back to atrial fibrillation with RVR. See is on sotalol as ordered by the cardiology was following the patient during the hospital stay. 10/14/2021 patient was in Cardizem drip overnight. Remains on atrial fibrillation but rate control. She has been started on amiodarone drip this morning. Concern with amiodarone long-term use by her today. All the questions answered during the visit 10/15/2021. No overnight events. Remains on amiodarone drip. Rate controlled AFib on telemetry. 10/18/2021 no overnight events. On oral amiodarone. Remains in atrial fibrillation with intermittent RVR. Going for ca
[2021-10-19 20:04] LABS: Glucose Point of Care 173 mg/dl (65-105)
[2021-10-19] MEDS: ATORVASTATIN 40 MG TABLET 80 MG PO (20:57)
[2021-10-19] MEDS: rOPINIRole HCL 1 MG TABLET 3 MG PO (20:57)
[2021-10-20] VITALS (12 sets, daily range): BP systolic 116–133; BP diastolic 50–61; PULSE 67–699; RESP 18–20; TEMP 36.3–36.6; O2SAT 95–97
--- NOTE | 2021-10-20 08:05 | PM.IMPN ---
Progress Note: A&P Assessment and Plan (1) Paroxysmal atrial fibrillation: Code(s): I48.0 - Paroxysmal atrial fibrillation Status: Acute Assessment and Plan: Persistent AFib despite 2 cardioversions, sotalol, amiodarone and now metoprolol (2) Atherosclerotic heart disease of [place] coronary artery with other forms of angina pectoris: Code(s): I25.118 - Atherosclerotic heart disease of [place] coronary artery with other forms of angina pectoris Status: Acute Assessment and Plan: cont lipitor, plavix, imdur (3) Gastro-esophageal reflux disease without esophagitis: Code(s): K21.9 - Gastro-esophageal reflux disease without esophagitis Status: Acute Assessment and Plan: cont ppi, controlled (4) Major depressive disorder, single episode, unspecified: Code(s): F32.9 - Major depressive disorder, single episode, unspecified Status: Acute Assessment and Plan: Continue Effexor (5) Restless legs syndrome: Code(s): G25.81 - Restless legs syndrome Status: Acute Assessment and Plan: Continue ropinirole (6) Type 2 diabetes mellitus with hyperglycemia: Qualifiers: Diabetes mellitus termite technician insulin use: unspecified termite technician insulin use status Qualified Code(s): E11.65 - Type 2 diabetes mellitus with hyperglycemia Code(s): E11.65 - Type 2 diabetes mellitus with hyperglycemia Status: Acute Assessment and Plan: Accu-Cheks plus sliding scale insulin, a1c 8.7 (7) Mixed hyperlipidemia: Code(s): E78.2 - Mixed hyperlipidemia Status: Acute Assessment and Plan: Continue Lipitor (8) Essential (primary) hypertension: Code(s): I10 - Essential (primary) hypertension Status: Acute Assessment and Plan: Controlled Plan Full code DVT prophylaxis with Eliquis Subjective Date/time seen: 10/20/21 08:05 Interval history: No overnight events noted. No chest pain or shortness of breath. No nausea, vomiting or diarrhea. No fevers or chills. Review of Systems Review of Systems: 12 point review of systems was assessed and was negative except as noted in the HPI Exam Narrative: General: No acute distress, alert and oriented per baseline HEENT: Atraumatic, normocephalic, mucous membranes moist CV: Irregularly irregular, S1, S2 Lungs: Clear to auscultation bilaterally, no rales or crackles noted, no wheezes, good air entry Abdomen: Soft, nontender, nondistended Extremities: Normal to inspection Skin: No rashes noted, no lesions or wounds seen Psych: Euthymic, normal affect Objective Data Vital Signs Vital Signs: Vital Signs - 24 hr 10/19/21 09:26 10/19/21 10:00 10/19/21 12:05 Temperature 96.7 F L Pulse Rate 123 H 123 H 128 H Respiratory Rate 20 Blood Pressure 115/68 Pulse Oximetry 99 Oxygen Delivery 10/19/21 12:00 10/19/21 12:00 10/19/21 13:22 Temperature Pulse Rate 114 H 118 H Respiratory Rate Blood Pressure Pulse Oximetry Oxygen Delivery Room Air 10/19/21 16:38 10/19/21 16:41 10/19/21 14:00 Temperature 96.2 F L Pulse Rate 79 86 88 Respiratory Rate 20 Blood Pressure 108/53 L Pulse Oximetry 96 Oxygen Delivery 10/19/21 16:00 10/19/21 16:00 10/19/21 18:00 Temperature Pulse Rate 81 87 Respiratory Rate Blood Pressure Pulse Oximetry Oxygen Delivery Room Air 10/19/21 20:00 10/19/21 20:58 10/19/21 20:00 Temperature 98.0 F Pulse Rate 82 90 Respiratory Rate 18 Blood Pressure 110/75 Pulse Oximetry 99 Oxygen Delivery Room Air 10/19/21 20:00 10/19/21 22:12 10/19/21 22:00 Temperature Pulse Rate 89 77 77 Respiratory Rate Blood Pressure Pulse Oximetry 96 Oxygen Delivery [place] 10/19/21 23:45 10/20/21 00:00 10/20/21 00:00 Temperature 97.8 F Pulse Rate 71 75 Respiratory Rate 20 Blood Pressure 132/75 Pulse Oximetry 97 Oxygen Delivery [place]
[2021-10-20 08:07] LABS: Glucose Point of Care 182 mg/dl (65-105)
[2021-10-20] MEDS: APIXABAN 5 MG TABLET PO (09:03)
[2021-10-20] MEDS: ISOSORBIDE MONONITRATE 60 MG TAB.ER.24H PO (09:03)
[2021-10-20] MEDS: MAGNESIUM OXIDE 400 MG TABLET PO (09:03)
[2021-10-20] MEDS: CYANOCOBALAMIN 1,000 MCG TABLET 1000 MCG PO (09:03)
[2021-10-20] MEDS: AMIODARONE HCL 200 MG TABLET 400 MG PO (09:03)
[2021-10-20] MEDS: CHOLECALCIFEROL 1,000 UNITS TABLET 2000 UNITS PO (09:04)
[2021-10-20] MEDS: PANTOPRAZOLE 40 MG TABLET PO (09:04)
[2021-10-20] MEDS: VENLAFAXINE HCL 75 MG TABLET BY MOUTH (09:04)
[2021-10-20] MEDS: METOPROLOL TARTRATE 50 MG TAB PO (09:04)
[2021-10-20] MEDS: CALCIUM CARBONATE (OSCAL) 500 MG TABLET PO (09:04)
[2021-10-20] MEDS: FLUTICASONE PROPIONATE 0.05% NA SPR 16 GM BTL (*BKC) 2 SPRAY NASAL (09:07)
[2021-10-20] MEDS: INSULIN GLARGINE (*BKC) 100 UNITS/ML 30 UNITS SUB-Q (09:10)
[2021-10-20] MEDS: INSULIN ASPART (*BKC) 100 UNITS/ML SUB-Q ×3 (09:11→12:37)
--- NOTE | 2021-10-20 09:34 | PM.PNCARD ---
Progress Note: A&P Assessment and Plan (1) Paroxysmal atrial fibrillation: Code(s): I48.0 - Paroxysmal atrial fibrillation Status: Acute Assessment and Plan: Refractory atrial fibrillation with rapid ventricular response to multiple previous medications failed sotalol. Currently on IV amiodarone. Transition to oral regimen provided heart rate remains acceptable. Continue anticoagulation. Much better on metoprolol rather than diltiazem. Continue amiodarone but I will lower the dose down to 200 mg p.o. b.i.d.. Continue current dose of metoprolol. Will replace her electrolytes as 40 mEq potassium chloride orally x1 as well as 2 g of IV magnesium x1. She can be discharged today (2) Acute diastolic CHF (congestive heart failure): Code(s): I50.31 - Acute diastolic (congestive) heart failure Status: Acute Assessment and Plan: Compensated at this time. Euvolemic. Off diuretic therapy. (3) Hypertension associated with diabetes: Code(s): E11.59 - Type 2 diabetes mellitus with other circulatory complications; I10 - Essential (primary) hypertension Status: Acute Assessment and Plan: Stable. Avoid hypotension. Continue current medical therapy. (4) Mitral insufficiency and aortic stenosis: Code(s): I08.0 - Rheumatic disorders of both mitral and aortic valves Status: Acute Assessment and Plan: Stable. (5) History of stroke: Code(s): Z86.73 - Personal history of transient ischemic attack (TIA), and cerebral infarction without residual deficits Status: Acute Assessment and Plan: Continue anticoagulation. Subjective Date/time seen: 10/20/21 09:34 Interval history: Follow-up visit in this 81-year-old lady with: Coronary and valvular heart disease she is admitted to the hospital with persistent atrial fibrillation. Date of service 10/19/2021: Unfortunately she reverted back into atrial fibrillation overnight. Heart rate still fast. Otherwise denies any chest pain or shortness of breath. Date of service 10/20/2021: Looks much better today. In sinus rhythm and heart rate is normal. No chest pain or shortness of breath Review of Systems Constitutional: Constitutional: Reports no additional constitutional complaints and Denies fever(s) Eyes: Eyes: Reports no additional eye complaints ENT: Reports system reviewed and no additional complaints, except as documented Cardiovascular: Cardiovascular: Reports as per HPI, Denies chest pain, Denies pedal edema, Denies lightheadedness and Denies dyspnea Respiratory: Respiratory: Denies chest congestion and Denies dyspnea Gastrointestinal: Gastrointestinal: Reports no additional gastrointestinal complaints, Denies abdominal pain and Denies hematochezia Musculoskeletal: Musculoskeletal: Reports no additional musculoskeletal complaints Integumentary/Breasts: Skin/Breast: Reports system reviewed and no additional complaints, except as docu Neurologic: Reports system reviewed and no additional complaints, except as documented, Reports as per HPI, Denies behavioral changes and Denies confusion Psychiatric: Psychiatric: Denies behavioral changes and Denies confusion Endocrine: Endocrine: Reports no additional endocrine complaints Hematologic/Lymphatic: Hematologic/Lymphatic: Reports no additional hematologic/lymphatic complaints Allergic/Immunologic: Allergic/Immunologic: Reports no additional allergic/immunologic complaints Exam Narrative: Looks stated age Const: General: cooperative, healthy appearing, comfortable and no acute distress; No confusion Orientation/consciousness: oriented to person, patient oriented x3 and No confusion Other: Pleasant comfortable elderly lady no distress HENMT: Mouth: Yes moist mucous membranes Eyes: Sclera: sclerae normal Pupils: Equal, round and reactive pupils present Neck: Neck: supple and no JVD Carotids: normal carotid upstroke and n
[2021-10-20] MEDS: MAGNESIUM SULF 2 GM/WATER 50ML 2 GM/50 ML BAG IVPB (10:26)
[2021-10-20] MEDS: POTASSIUM CHLORIDE 20 MEQ TABLET 40 MEQ PO (10:57)
[2021-10-20 11:49] LABS: Glucose Point of Care 279 mg/dl (65-105)
--- NOTE | 2021-10-20 19:12 | PM.DS ---
DS: Admitting Diagnosis Discharge Date 10/20/21 Admitting Diagnosis AFib with RVR DS: Discharge Diagnosis Discharge Diagnosis (1) Paroxysmal atrial fibrillation: Code(s): I48.0 - Paroxysmal atrial fibrillation Status: Acute (2) Atherosclerotic heart disease of [place] coronary artery with other forms of angina pectoris: Code(s): I25.118 - Atherosclerotic heart disease of [place] coronary artery with other forms of angina pectoris Status: Acute (3) Gastro-esophageal reflux disease without esophagitis: Code(s): K21.9 - Gastro-esophageal reflux disease without esophagitis Status: Acute (4) Major depressive disorder, single episode, unspecified: Code(s): F32.9 - Major depressive disorder, single episode, unspecified Status: Acute (5) Restless legs syndrome: Code(s): G25.81 - Restless legs syndrome Status: Acute (6) Type 2 diabetes mellitus with hyperglycemia: Qualifiers: Diabetes mellitus suit attendant insulin use: unspecified suit attendant insulin use status Qualified Code(s): E11.65 - Type 2 diabetes mellitus with hyperglycemia Code(s): E11.65 - Type 2 diabetes mellitus with hyperglycemia Status: Acute (7) Mixed hyperlipidemia: Code(s): E78.2 - Mixed hyperlipidemia Status: Acute (8) Essential (primary) hypertension: Code(s): I10 - Essential (primary) hypertension Status: Acute DS: Summary Hospital Course Hospital Course: 81-year-old female past medical history significant for coronary disease, CVA presented to the ER with AFib with RVR. Cardiology was consulted and try to chemically convert with sotalol. They also started her on systemic anticoagulation with Eliquis. She was taken for a LOIS with cardioversion that was successful. However, a day later, she did relapse into AFib with RVR. Her metoprolol and diltiazem were continued at this time. Sotalol was discontinued and she was started on IV amiodarone. A 2nd cardioversion was discussed simply because she relapsed so quickly. A 2nd cardioversion was performed that was successful. Patient remained in normal sinus rhythm after the 2nd cardioversion. Diltiazem was discontinued in favor of metoprolol. Amiodarone was decreased to 200 mg twice daily. Patient remained in normal sinus rhythm and was discharged in good condition at a euvolemic state. She is to follow up with EP outpatient. Time Spent with Patient Time attestation: Total time spent providing and/or coordinating discharge services: DS: Data Data Completed and Pending Labs on day of discharge: Labs from last 24 hours 10/20/21 10/20/21 10/19/21 11:27 07:40 19:51 POC Capillary Glucose 279 H 182 H 173 H Discharge Plan Discharge Attending physician on discharge: Jhoana Vega Consulting providers: Wali Simmons Discharging Clinician: Jhoana Vega Anticipated Discharge Date/Time: 10/10/21 09:45 Patient Disposition: Home Health Service Activity: as tolerated Diet: heart healthy Discharge Instructions: Per Care Coordination: Patient to have [facility] for RN/PT/OT eval and treat [phone]. Home Health with contact you to schedule first appointment. Keep appointment with Dr. Chun at the end of October as scheduled. Avoid medications that can prolong the QT interval on the EKG and interact with sotalol, if possible. These include erythromycin, azithromycin, levaquin, Cipro. Dr. Chun's office: [facility]: [phone]. Call if any questions, or recurrent shortness of breath. Patient Instructions: Antibiotic Form, Amiodarone (By mouth), Diltiazem (By injection), Amiodarone (By injection), Apixaban (By mouth), A-fib (Atrial Fibrillation) (DC), Cardioversion (DC), Transesophageal Echocardiogram (DC) Stand Alone Forms: General Discharge Information Follow-up/Referrals: Loretta Hua, LEAD LEVEL DESIGNER-C [Advanced Practice Nurse] -
== END 2021-10-20 14:13 | disposition home health service (06) | DRG 308 ==
LOC: ANHED 01:56 → ANH3MEDSUR 08:48 → ANHIMU 10-13 16:38
PROVIDERS: Internal Medicine; Internal Medicine Cardiovascular Disease; Nurse Practitioner; Admitting Provider Internal Medicine; Emergency Provider Emergency Medicine; PCP Family Medicine; Visit Provider Student in an Organized Health Care Education/Training Program
PROC: 5A2204Z Restoration of Cardiac Rhythm, Single (ICD-10-PCS; CPT 93312; principal; 2021-10-12 12:30)
PROC: 5A2204Z Restoration of Cardiac Rhythm, Single (ICD-10-PCS; 2021-10-12 12:30)
DX: I48.0 Paroxysmal atrial fibrillation (principal); I50.31 Acute diastolic (congestive) heart failure; I11.0 Hypertensive heart disease with heart failure; I25.118 Atherosclerotic heart disease of native coronary artery with other forms of angina pectoris; I08.0 Rheumatic disorders of both mitral and aortic valves; J45.909 Unspecified asthma, uncomplicated; E11.40 Type 2 diabetes mellitus with diabetic neuropathy, unspecified; K21.9 Gastro-esophageal reflux disease without esophagitis; M19.90 Unspecified osteoarthritis, unspecified site; G25.81 Restless legs syndrome; F32.9 Major depressive disorder, single episode, unspecified; Z20.822 Contact with and (suspected) exposure to COVID-19; Z86.73 Personal history of transient ischemic attack (TIA), and cerebral infarction without residual deficits; Z79.01 Long term (current) use of anticoagulants; Z90.49 Acquired absence of other specified parts of digestive tract; Z90.710 Acquired absence of both cervix and uterus; Z95.5 Presence of coronary angioplasty implant and graft
CPT/HCPCS: 36415; 71045; 80048; 80053; 82948; 83036; 83735; 83880; 84484; 85025; 85380; 92960; 93005; 93312; 93320; 93325; 94002; 97161; 97530; 99285; A9270; C9803; J0282; J1815; J1940; J2250; J2704; J3010; J3475; J7030; J7040; U0003; U0005

== ENCOUNTER → 2022-02-08 15:10 | Outpatient (CLI) | payer MEDICARE, SELFPAY ==
--- NOTE | ~2022-02-08 | XR_ITS ---
EXAM: XR shoulder LT min 2V DATE: 02/08/2022 15:23 HISTORY: left shoulder pain, no injury . COMPARISON: 08/07/2017. FINDINGS: Normal mineralization. No fracture or dislocation. No lytic or blastic lesion. Moderate AC joint and glenohumeral joint osteoarthritis. No erosion or periosteal change. Stable left upper lobe granulomas. IMPRESSION: No acute osseous finding in the left shoulder. Reviewed, dictated and finalized at location K. ALARM DISPATCHER
== END ==
PROVIDERS: PCP Family Medicine; Visit Provider Family Medicine
DX: M25.512 Pain in left shoulder (principal)
CPT/HCPCS: 73030

== ENCOUNTER 2022-02-17 00:10 | Day surgery (SDC) | payer MEDICARE, SELFPAY ==
[2022-02-17] VITALS (10 sets, daily range): BP systolic 106–170; BP diastolic 54–118; PULSE 72–79; RESP 15–24; TEMP 36.6; O2SAT 95–100; BMI 30.4
--- NOTE | ~2022-02-17 | XR_ITS ---
EXAMINATION: XR chest 1V portable INDICATION: Pacemaker insertion TECHNIQUE: Portable AP chest at 1438 hours COMPARISON: 10/12/2021 FINDINGS: The lungs are free of acute opacities. No pleural effusion or pneumothorax. The cardiomedia stinal silhouette is normal. A dual-lead cardiac pacemaker of the left chest wall ends with leads in expected locations. IMPRESSION: 1. No acute cardiopulmonary abnormality. Reviewed, dictated and finalized at location A. ULTING TECHNICAL MANAGER
--- NOTE | 2022-02-17 10:00 | ECG_ITS ---
Measurements Intervals [place] Rate: 73 P: [place]: 0 QRS: -2 QRSD: 106 T: 39 QT: 420 QTc: 464 Interpretive Statements INDETERMINATE RHYTHM DUE TO SIGNIFICANT BASELINE ARTIFACT - UNABLE TO DISCERN P-WAVES DUE TO ARTIFACT Electronically Signed On 02-17-2022 16:11:53 MARKETING RESEARCH COORDINATOR by Yazan Cramer M.D.
[2022-02-17 10:30] LABS: Basophils Absolute Auto 0.1 K/mm3 (0.0-0.1); Basophils Percent Auto 0.9 % (0.2-1.2); Eosinophils Absolute Auto 0.2 K/mm3 (0-0.3); Eosinophils Percent Auto 2.5 % (0-4.4); Hemoglobin 13.2 g/dL (12.0-15.0); Immature Granulocyte Absolute 0.03 K/mm3 (0.00-0.031); Immature Granulocyte Percent A 0.4 % (0-0.5); Lymphocytes Absolute Auto 1.61 K/mm3 (0.9-3.2); Lymphocytes Percent Auto 23.4 % (18.3-44.2); Mean Corpuscular HGB Conc 33.8 g/dl (32-36); Mean Corpuscular Hemoglobin 27.7 pg (26-34); Mean Corpuscular Volume 81.8 fl (80-100); Mean Platelet Volume 9.6 fl (7.4-10.4); Monocytes Absolute Auto 0.4 K/mm3 (0.1-0.6); Monocytes Percent Auto 5.8 % (2.6-8.5); Neutrophils Absolute Auto 4.6 K/mm3 (1.3-6.7); Platelet Count Result 203 k/mm3 (150-375); Red Blood Count 4.77 M/mm3 (4.2-5.4); Red Cell Distribution Width 15.3 % (11.5-14.5); White Blood Count 6.9 K/mm3 (4.5-10.0)
[2022-02-17 10:37] LABS: INR 1.1; Prothrombin Time 13.9 Seconds (11.1-14.7)
[2022-02-17 10:46] LABS: Anion Gap 7 mmol/L (8-16); Blood Urea Nitrogen 24 mg/dL (7-17); Carbon Dioxide 27 mmol/L (22-30); Chloride 103 mmol/L (98-107); Estimated Glomerular Filt Rate > 60; Glucose 185 mg/dL (65-110); Potassium 4.1 mmol/L (3.4-5.0); Sodium 137 mmol/L (137-145)
--- NOTE | 2022-02-17 11:08 | WPDHPUPDATE1 ---
History and Physical Update Update Date/Time: 02/17/22 11:08 Ms. Ashlyn Graham isfollowed by Dr. Chun and has a history of dizziness and syncope. Sinus pauses and junctional rhythm were noted on her monitor. She appears to have symptomatic sinus node dysfunction and is here for implantation of a permanent dual-chamber transvenous pacemaker. History and Physical has been reviewed, including an updated exam of the patient. There are NO changes in the patient's condition. Risks, benefits, and alternatives have been discussed and questions answered. Risks were again reviewed with the patient and . Reviewed risks of pacemaker implant with patient. These include breathing problems, allergic reactions, bleeding, infection, pneumothorax, cardiac puncture, need for unanticipated surgery, lead dislodgement among others. Patient agrees to proceed with procedure.
--- NOTE | 2022-02-17 11:12 | WPDMODSED ---
Moderate Sedation Note-Pt Data Patient Data Diagnosis: Symptomatic sinus node dysfunction, syncope Present Complaint: Ms. Ashlyn Graham is followed by Dr. Chun and has a history of dizziness and? syncope.? Sinus pauses and junctional rhythm were noted on her monitor.? She appears to have symptomatic sinus node dysfunction and is here for implantation of a permanent dual-chamber transvenous pacemaker. Feeling well this a.m.; NPO. No h/o clavicular fx, right-handed. ?? Procedure to be performed/Plan: Conscious sedation Venogram Placement of a permanent dual chamber pacer Allergies Allergy/AdvReac Type Severity Reaction Status Date / Time clavulanic acid Allergy Intermediate PURITIS Verified 02/17/22 10:23 amoxicillin Allergy Unknown Unknown Verified 02/17/22 10:23 amphetamine Allergy Unknown possible Verified 02/17/22 10:23 cause of pruritis, no rash- mild cefuroxime Allergy Unknown Unknown Verified 02/17/22 10:23 erythromycin base Allergy Unknown Unknown Verified 02/17/22 10:23 lodoxamide Allergy Unknown Nausea Verified 02/17/22 10:23 Home Medications Medication Instructions Recorded Confirmed Type calcium carbonate 600 mg calcium 600 mg PO DAILY 01/16/19 02/17/22 History (1,500 mg) tablet (Calcium) coenzyme Q10 10 mg capsule (Co 10 mg PO DAILY 01/16/19 02/17/22 History Q-10) mecobalamin (vitamin B12) 1,000 1,000 mcg sublingual HS 01/16/19 02/17/22 History mcg disintegrating tablet,sublingual lancets 33 gauge #200 ea 11/20/19 12/27/21 Rx pantoprazole 40 mg tablet,delayed 40 mg PO QAM 12/02/19 02/17/22 History release magnesium oxide 400 mg PO DAILY 10/26/20 02/17/22 History nitroglycerin 0.4 mg sublingual 0.4 mg sublingual Q5M PRN chest 04/06/21 02/17/22 Rx tablet pain #25 tabs pen needle, diabetic 31 gauge x See Rx Instructions .Route 06/02/21 02/17/22 Rx 3/16 (BD Ultra-Fine Mini Pen .COMPLEX #400 ea Needle) atorvastatin 40 mg tablet 80 mg PO HS 10/09/21 02/17/22 History apixaban 5 mg tablet (Eliquis) 5 mg PO Q12HR 1 month #60 tabs 10/10/21 02/17/22 Rx amiodarone 200 mg tablet (Pacerone) 200 mg PO BID 1 month #60 tabs 10/20/21 02/17/22 Rx glucagon 3 mg/actuation nasal 3 mg intranasal ONCE PRN 11/17/21 02/17/22 Rx spray (Baqsimi) hypoglycemia #1 ea blood sugar diagnostic (Contour #200 strips 01/17/22 Rx Next Test Strips) tirzepatide 5 mg/0.5 mL 5 mg (0.5 mL) subcut WEEKLY 90 01/20/22 02/17/22 Rx subcutaneous pen injector days #6.5 mL (Mounjaro) ropinirole 1 mg tablet 3 mg PO QHS #90 tabs 02/15/22 02/17/22 Rx albuterol sulfate 90 mcg/actuation 2 puff inhalation BID PRN asthma 02/17/22 02/17/22 History aerosol inhaler fluticasone propionate 50 2 spray intranasal DAILY PRN 02/17/22 02/17/22 History mcg/actuation nasal Allergic Symptoms spray,suspension insulin glargine 100 unit/mL (3 30 unit subcut QAM 02/17/22 02/17/22 History mL) subcutaneous pen (Basaglar KwikPen U-100 Insulin) insulin lispro 100 unit/mL 10 unit subcut AC 02/17/22 02/17/22 History subcutaneous pen (Humalog KwikPen (U-100) Insulin) metoprolol tartrate 50 mg tablet 25 mg PO Q12HR 02/17/22 02/17/22 History venlafaxine 75 mg tablet 75 mg PO BID 02/17/22 02/17/22 History Sedation/Anesthesia: No previous sedation/anesthesia problems (including family history). [facility] Past Medical History Medical History Arthritis Asthma Atherosclerotic heart disease of [place] coronary artery with other forms of angina pectoris Back pain BMI 33.0-33.9,adult Cataracts, bilateral Diabetic neuropathy Dysfunction of left eustachian tube Gastro-esophageal reflux disease without esophagitis Hypertension Hypokalemia Localized dermatitis Major depressive disorder, single episode, unspecified Metabolic syndrome Mitral insufficiency and aortic stenosis echo 10-21 moderate MN and 1.82 cm2 Open wound of index finger Other se
--- NOTE | 2022-02-17 13:43 | W.PM.PROC2 ---
Procedure Note - Detailed Date of Procedure 02/17/22 Pre-op Diagnosis Syncope, Sinus Node Dysfunction Post-op Diagnosis Other ( status post dual-chamber pacemaker) Procedure Performed PROCEDURE PERFORMED: Conscious sedation Venogram Placement of a permanent dual-chamber pacemaker Surgeon Radha English MD Anesthesia Local ( with conscious sedation) Description of Procedure HISTORY: Ms. Ashlyn Graham is followed by Dr. Chun for her CAD and PAF, h/o CVA. She recently has been having dizziness and? syncope.? Sinus pauses and junctional rhythm were noted on her monitor.? She appears to have symptomatic sinus node dysfunction and is here for implantation of a permanent dual-chamber transvenous pacemaker. SITE: Left prepectoral area MEDICATIONS GIVEN IN ICE CREAM CHEF: Vacnomycin 1 gram IV piggyback CONSCIOUS SEDATION: Assessment: The patient has no history of anesthesia problems. The patient's oropharynx is clear. The patient was deemed to be a good candidate for conscious sedation. The patient had continuous hemodynamic monitoring during the procedure. Start time: 1205 p.m. Completion time: 1332 p.m. Total conscious sedation time: 80min Medications: Versed 3 mg IV push and fentanyl 150 mg IV push in divided doses Trained observer: Jessica Gallegos RN Outcome: The patient tolerated the procedure well with no complications. PROCEDURE: After informed consent , the patient was brought to the label stamper and the left prepectoral area was prepped and draped in usual fashion . The patient received preop antibiotic with vancomycin and conscious sedation. The left prepectoral area was anesthetized with lidocaine . A venogram was performed showing the course of the left subclavian vein,which was patent and in the expected location. Next a skin incision was made and carried down to the prepectoral fascia. Hemostasis was obtained using electrocautery . The pacer pocket was formed. The left subclavian vein was easily accessed with the micropuncture technique, and a J-tipped guide wire was passed into the inferior vena cava under fluoroscopic guidance. The needle was withdrawn. A 2nd wire was introduced in an identical fashion. A 7 Setswana safety sheath was passed over the lateral wire, the wire withdrawn, and the right ventricular lead was passed into the inferior vena cava under fluoroscopic guidance. The lead was then prolapsed through the tricuspid valve and advanced into the right ventricular apex. This took a couple attempts as the pt appears to have a large right atrium and tricuspid regurgitation, which pushed the lead out of the RV. When suitable sensing and pacing thresholds were obtained, it was screwed into place. No extra cardiac stimulation was obtained using 10 volts. The sheath was withdrawn. Next, another 7 [place]wana safety sheath was passed over the more medial wire, the wire withdrawn, and the right atrial lead was passed into the inferior vena cava under fluoroscopic guidance. Right atrial lead was then pulled back to the level of the right atrium and manipulated into the right atrial appendage . Mediocre pacing was obtained in the appendage, and after searching for an optimal site, I placed the lead on the lateral wall. When suitable sensing and pacing thresholds were obtained , it was screwed into place. No extra cardiac stimulation was obtained using 10 volts. The sheath was withdrawn. Both leads were secured to the prepectoral fascia using 2-0 silk over their respective sleeves. The pocket was cleansed with antibiotic containing solution . The pulse generator was introduced into the operative field,and both leads were secured into the generator . A gentle tug showed the leads were securely fastened. The device was introduced into the pocket. A stay-stitch was applied to the prepectoral fascia with 2-0 silk, The subcutaneous tissues were closed in a double layer fashion with interrupted sutures,
--- NOTE | 2022-02-17 14:08 | PM.OP ---
Procedure Note - Brief Procedure Note - Brief Date of procedure: 02/17/22 Pre-op diagnosis: Syncope, Sinus Node Dysfunction syncope, sinus node dysfunction Post-op diagnosis: Other ( status post permanent transvenous dual-chamber pacemaker) Procedure performed: conscious sedation venogram Implantation of permanent dual-chamber transvenous pacemaker Description of procedure: uneventful implant of a permanent dual-chamber transvenous pacemaker Surgeon: Radha English MD
--- NOTE | 2022-02-17 14:54 | SUR.PHASEII ---
phase II begins @1350 in THERMOSCREW OPERATOR 7. pt oriented to room, L arm in sling and pt educated about restricting movement with left arm. EKG & Chest XRAY completed. See meditech for vitals. all light placed within reach, family at bedside.
[2022-02-17] MEDS: ACETAMINOPHEN 325 MG TABLET 650 MG PO (17:15)
== END 2022-02-17 17:30 | disposition home or self-care (01) ==
PROVIDERS: PCP Family Medicine; Visit Provider Internal Medicine Cardiovascular Disease
PROC: 0JH606Z Insertion of Pacemaker, Dual Chamber into Chest Subcutaneous Tissue and Fascia, Open Approach (ICD-10-PCS; CPT 33208; principal; 2022-02-17 11:30)
DX: I49.5 Sick sinus syndrome (principal); R55 Syncope and collapse; I25.118 Atherosclerotic heart disease of native coronary artery with other forms of angina pectoris; I34.0 Nonrheumatic mitral (valve) insufficiency; I35.0 Nonrheumatic aortic (valve) stenosis; I48.0 Paroxysmal atrial fibrillation; I10 Essential (primary) hypertension; E78.1 Pure hyperglyceridemia; J45.909 Unspecified asthma, uncomplicated; E11.40 Type 2 diabetes mellitus with diabetic neuropathy, unspecified; K21.9 Gastro-esophageal reflux disease without esophagitis; F32.A Depression, unspecified; G25.81 Restless legs syndrome; Z86.73 Personal history of transient ischemic attack (TIA), and cerebral infarction without residual deficits; Z79.01 Long term (current) use of anticoagulants; Z79.51 Long term (current) use of inhaled steroids; Z79.4 Long term (current) use of insulin; Z87.891 Personal history of nicotine dependence
CPT/HCPCS: 33208; 36415; 71045; 80048; 85025; 85610; 93005; A4565; A9270; C1779; C1785; C1894; J2250; J3010; J3370; J7040

== ENCOUNTER 2022-02-23 10:26 | Outpatient (CLI) | payer MEDICARE, SELFPAY ==
--- NOTE | ~2022-02-23 | XR_ITS ---
XR chest 2V DATE: 02/23/2022 10:48 INDICATION: Cardiac pacemaker in situ TECHNIQUE: PA and lateral views COMPARISON: 02/17/2022 portable AP chest FINDINGS: Left dual-lead pacemaker device with leads overlying right atrium and right ventricle. Norm al heart size. There is minimal aortic unfolding. No hilar or mediastinal enlargement. No pulmonary infiltrate or consolidation, pleural effusion or pulmonary vascular congestion or pneumo thorax. Degenerative disc disease of the lower cervical spine. There is degenerative spurring of the thoracic spine. Status post cholecystectomy. IMPRESSION: Left dual-lead pacemaker device No active cardiopulmonary disease or significant change since 02/17/2022 Reviewed, dictated and finalized at location B. NESS PERFORMANCE SPECIALIST
== END 2022-02-23 10:27 | disposition home or self-care (01) ==
PROVIDERS: PCP Family Medicine; Visit Provider Internal Medicine Cardiovascular Disease
DX: I49.5 Sick sinus syndrome (principal); Z95.0 Presence of cardiac pacemaker
CPT/HCPCS: 71046

== ENCOUNTER 2022-10-28 13:13 | Outpatient (CLI) | payer MEDICARE, SELFPAY ==
--- NOTE | ~2022-10-28 | XR_ITS ---
XR chest 2V 10/28/2022 14:08 Indication: Dyspnea with exertion. Procedure: 2 view chest Comparison: Comparison to multiple prior studies sequentially, with oldest reviewed study dated 08/2021. Findings: Heart size normal. Pacemaker leads are in expected position. No focal air space disease, pu lmonary edema, pleural effusion or suspected pneumothorax. No acute osseous abnormality. Impression: 1: No acute cardiopulmonary disease. Reviewed, dictated and finalized at location B. Impression: 1: No acute cardiopulmonary disease.
--- NOTE | 2022-10-28 15:47 | WPDPFTINT ---
PFT Procedure Performed PFT Procedure Performed Plethysmography (Lung Vol) Diffusing Cap (DLCO) Flow Vol Loop Spirometry w/o Bronchodil PFT Interpretation This is a pulmonary function test with spirometry, plethysmography and diffusing capacity. The test was performed and results interpreted in accordance with the 2019 and 2005 ATS/ERS Task Force guidelines respectively using the Global Lung Function Initiative-2012 reference equations. Patient demonstrated good effort and cooperation. Reproducibility criteria were met. The quality of the spirometry maneuver was Grade A. Despite 3 attempts the patient was only able to provide 1 acceptable plethysmography maneuver. Findings: Spirometry: The contour the inspiratory and expiratory flow tracing are normal. The pre bronchodilator FVC is 2.36 L, 92% predicted. The FEV1 is 1.82 L, 94% predicted. The FEV1: FVC ratio 77%. Plethysmography: The total lung capacity is 6.19 L, 119% predicted. The functional residual capacity is 4.38 L, 145% predicted. The residual volume is 2.88 L, 116% predicted. Diffusing capacity: The diffusing capacity unadjusted for hemoglobin and carboxyhemoglobin is 10.1, 52% predicted. The diffusing capacity adjusted for alveolar volume is 3.00, 74% predicted. Impression: The spirometry is normal without evidence of an obstructive abnormality. The total lung capacity and residual volume are normal with an increased functional residual capacity. This is an abnormal but nonspecific lung volume pattern. He lung volumes are normal. The diffusing capacity unadjusted for hemoglobin and carboxyhemoglobin is moderately decreased and normalizes when adjusted for alveolar volume. There are no prior studies for comparison
== END 2022-10-28 13:14 | disposition home or self-care (01) ==
PROVIDERS: PCP Family Medicine; Visit Provider Internal Medicine Cardiovascular Disease
DX: R06.09 Other forms of dyspnea (principal); Z79.899 Other long term (current) drug therapy
CPT/HCPCS: 71046; 94375; 94726; 94729

== ENCOUNTER → 2022-12-01 11:30 | Outpatient (CLI) | payer MEDICARE, SELFPAY ==
--- NOTE | ~2022-12-01 | XR_ITS ---
EXAMINATION: XR chest 2V 12/01/2022 11:41 INDICATION: Cough for 5 days PROCEDURE: 2 view chest COMPARISON: Comparison to multiple prior studies sequentially, with oldest reviewed study dated 11/2021. FINDINGS: The lungs are clear. The cardiomediastinal silhouette is within normal limits. There are no pleural effusions. There is no pneumothorax suspected. Pacemaker leads are stable. IMPRESSION: 1: NO ACUTE CARDIOPULMONARY DISEASE. Reviewed, dictated and finalized at location L.
== END ==
PROVIDERS: PCP Internal Medicine Cardiovascular Disease; Visit Provider Family Medicine
DX: R05.9 Cough, unspecified (principal)
CPT/HCPCS: 71046

== ENCOUNTER 2023-06-23 14:22 | Outpatient (CLI) | payer MEDICARE, SELFPAY ==
[2023-06-23 19:25] LABS: Alanine Aminotransferase 34 U/L (6-35); Albumin Level 4.2 g/dL (3.5-5.1); Alkaline Phosphatase 91 U/L (38-126); Anion Gap 6 mmol/L (4-12); Aspartate Amino Transferase 44 U/L (14-36); Bilirubin,Total 0.7 mg/dL (0.2-1.3); Blood Urea Nitrogen 26 mg/dL (7-17); Calcium 9.4 mg/dL (8.4-10.2); Carbon Dioxide 29 mmol/L (22-30); Chloride 102 mmol/L (98-107); Cholesterol 160 mg/dL (0-200); Estimated Glomerular Filt Rate 60; Glucose 381 mg/dL (65-110); HDL Direct 45 mg/dL; Sodium 137 mmol/L (137-145); Triglycerides 197 mg/dL (<150)
[2023-06-23 19:38] LABS: LDL Cholesterol Direct 85 mg/dL
[2023-06-23 19:53] LABS: Creatinine Urine 223.9 mg/dL
[2023-06-23 19:56] LABS: MALB Creatinine Ratio 17.3 mg/g (0-30); Microalbumin Urine Random 38.8 mg/L (0-16.7)
== END 2023-06-23 14:23 | disposition home or self-care (01) ==
LOC: ANHGOSHLAB 14:24
PROVIDERS: PCP Family Medicine; Visit Provider Internal Medicine Endocrinology, Diabetes & Metabolism
DX: E11.65 Type 2 diabetes mellitus with hyperglycemia (principal); E11.40 Type 2 diabetes mellitus with diabetic neuropathy, unspecified; E78.2 Mixed hyperlipidemia; Z71.3 Dietary counseling and surveillance; Z68.32 Body mass index [BMI] 32.0-32.9, adult
CPT/HCPCS: 36415; 80053; 80061; 82043; 82607; 84443

== ENCOUNTER 2023-10-25 10:45 | Outpatient (RCR) | payer MEDICARE, SELFPAY ==
[2023-08-22 13:36] VITALS: BMI 28.5
[2023-09-12 10:45] VITALS: BMI 28.5
[2023-09-12 10:50] VITALS: BMI 28.5
[2023-10-25 10:38] VITALS: BMI 28.1
[2023-10-25 10:45] VITALS: BMI 28.1
== END 2023-11-07 11:34 | disposition home or self-care (01) ==
LOC: ANHDMC 10:45
PROVIDERS: PCP Family Medicine; Visit Provider Internal Medicine Endocrinology, Diabetes & Metabolism
DX: E11.65 Type 2 diabetes mellitus with hyperglycemia (principal); Z71.3 Dietary counseling and surveillance; Z71.89 Other specified counseling
CPT/HCPCS: 97802; 97803; G0108

== ENCOUNTER 2023-11-29 10:44 | Outpatient (RCR) | payer MEDICARE, SELFPAY | END 2024-02-19 09:30 | disposition home or self-care (01) | LOC: ANHDMC 10:44 | PROVIDERS: PCP Family Medicine; Visit Provider Internal Medicine Endocrinology, Diabetes & Metabolism | DX: E11.65 Type 2 diabetes mellitus with hyperglycemia (principal); Z71.89 Other specified counseling | CPT/HCPCS: G0108 ==

== ENCOUNTER 2024-01-12 11:36 | Outpatient (CLI) | payer MEDICARE, BC, SELFPAY ==
--- NOTE | ~2024-01-12 | XR_ITS ---
EXAMINATION: XR chest 2V 01/12/2024 12:19 INDICATION: Long-term use of amiodarone PROCEDURE: 2 view chest COMPARISON: Comparison to multiple prior studies sequentially, with oldest reviewed study dated 02/03. FINDINGS: The lungs are clear. The cardiomediastinal silhouette is within normal limits. There are no pleural effusions. There is no pneumothorax suspected. IMPRESSION: 1: NO ACUTE CARDIOPULMONARY DISEASE. Reviewed, dictated and finalized at location B. CREAM FREEZER
[2024-01-12 12:37] LABS: Alanine Aminotransferase 24 U/L (6-35); Albumin Level 4.2 g/dL (3.5-5.1); Alkaline Phosphatase 84 U/L (38-126); Anion Gap 8 mmol/L (4-12); Aspartate Amino Transferase 34 U/L (14-36); Bilirubin,Total 0.6 mg/dL (0.2-1.3); Blood Urea Nitrogen 28 mg/dL (7-17); Calcium 9.2 mg/dL (8.4-10.2); Carbon Dioxide 26 mmol/L (22-30); Chloride 105 mmol/L (98-107); Estimated Glomerular Filt Rate 60; Glucose 110 mg/dL (65-110); Potassium 4.2 mmol/L (3.4-5.0); Sodium 139 mmol/L (137-145)
[2024-01-12 12:56] LABS: Free T4 Free Thyroxine 1.39 ng/mL (0.78-2.19)
== END 2024-01-12 11:37 | disposition home or self-care (01) ==
PROVIDERS: PCP Internal Medicine; Visit Provider Internal Medicine Cardiovascular Disease
DX: Z79.899 Other long term (current) drug therapy (principal)
CPT/HCPCS: 36415; 71046; 80053; 84439; 84443

== ENCOUNTER 2024-08-01 15:26 | Emergency (ER) | payer MEDICARE, SELFPAY ==
--- NOTE | ~2024-08-01 | CT_ITS ---
History: Fall PROCEDURE: CT head without contrast. COMPARISON: None. 05/28/2012 TECHNIQUE: Axial imaging of the head performed from the skull base to the vertex without IV contrast. Sagittal a nd coronal reformations obtained. DLP: 681 mGy-cm FINDINGS: The ventricles are enlarged. The dilatation of the ventricles is proportional to the degree of sulcal prominence, not uncommon in the senescent brain. Decreased attenuation is identified within the periventricular white matter, likely secondary to micr ovascular ischemic disease, in a patient of this age. There is no mass, mass effect or midline shift. There is no abnormal extra-axial fluid collection or intracranial hemorrhage. Visualized paranasal sinuses are clear. The mastoid air cells are well aerated. No acute displaced fractures within the overlying cranium. Impression: No acute intracranial hemorrhage or suspicious mass effect. Reviewed, dictated and finalized at location A. Impression: No acute intracranial hemorrhage or suspicious mass effect.
--- NOTE | ~2024-08-01 | XR_ITS ---
EXAMINATION: XR tibia fibula RT 2V DATE: 08/01/2024 16:46 INDICATION: Right lower leg wound post fall TECHNIQUE: Anteroposterior and lateral views of the right tibia and fibula were obtained. COMPARISON: None. FINDINGS: Bone alignment is normal. No fracture. Tricompartmental osteoarthritis at the right knee with moderat e to severe joint space narrowing at the medial compartment best appreciated on the lateral projectio n and at least mild osteoarthritis in the lateral and patellofemoral compartments. Small enthesophyte s and enthesopathic ossicles at the patellar insertion of the distal quadriceps tendon. No right knee joint effusion. Additional mild osteoarthritis at the right ankle and subtalar joints. Soft tissues are unremarkable. IMPRESSION: 1. 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 No a cute osseous abnormality. Reviewed, dictated and finalized at location A. IMPRESSION: 1. Polyarticular osteoarthritis, moderate to severe at the medial compartment o f the right knee. No acute osseous abnormality.
--- OUTSIDE RECORDS SUMMARY | 2024-08-01 15:32 | XMS_ITS | Referral Summary ---
Author Organization [facility] [place] [address] Address [address] [place] [address] Care Team Providers Care Aircraft Avionics Technician Name Role Phone Tom Roberson DO Primary Care Provider [phone] Encounters Date Type Department Care Team Description 05/21/2024 7:45 AM CDT Ancillary Procedure [facility] Medical Group Cardiology [address] [facility] [address] [place] [id number] Cardiac pacemaker in situ; Paroxysmal atrial fibrillation (HCC); Sinus node dysfunction (HCC) from Last 3 Months Allergies Active Allergy Reactions Criticality Noted Date Comments Amoxicillin Nausea & Vomiting Low Cefuroxime Nausea only Low Erythromycin Nausea only Low Medications venlafaxine (EFFEXOR) 75 mg tablet take 1 tablet by oral route 2 times every day with food 0 0 5 Active calcium carbonate-vitamin D3 (CALCIUM 600 + D,3,) 600 mg calcium- 200 unit capsule take 1 by Oral route once 0 0 5 Active multivitamin tablet tablet take 1 tablet by oral route every day with food 0 0 5 Active cyanocobalamin (vitamin B-12) 1,000 mcg tablet take 1 by Oral route every day 0 0 5 Active mometasone-formot richa (DULERA) 100-5 mcg/actuation inhaler inhale 2 puff by inhalation route 2 times every day in the morning and evening 0 Inhaler 0 5 Active albuterol HFA (VENTOLIN HFA) 90 mcg/actuation inhaler inhale 2 puff by inhalation route every 4 - 6 hours as needed 0 Inhaler 0 5 Active pen needle, diabetic (NOVOFINE 30) 30 gauge x 1/3 needle 0 0 5 Active rOPINIRole (REQUIP) 1 mg tablet take 1 tablet by oral route 3 times every day 0 0 5 Active magnesium oxide (MAG-OX) 400 mg (241.3 mg elemental) tablet take 1 tablet by oral route 2 times every day 0 0 7 Active coenzyme Q10 (CO Q-10) 100 mg capsule take 1 by Oral route every day 0 0 7 Active atorvastatin (LIPITOR) 80 mg tablet Take 1 tablet (80 mg total) by mouth daily 30 tablet 11 2 Active HumuLIN R U-500 500 unit/mL (3 mL) CONCENTRATED pen for injection 3 Active semaglutide (OZEMPIC SUBQ) Inject under the skin Active pantoprazole DR (PROTONIX) 40 mg EC tabletIndications :Gastroesophageal reflux disease TAKE 1 TABLET BY MOUTH EVERY DAY 90 tablet 4 Active amiodarone (PACERONE) 100 mg tablet TAKE 1 TABLET BY MOUTH DAILY 90 tablet 3 5 Active metoprolol tartrate (LOPRESSOR) 25 mg immediate release tablet TAKE 1 TABLET BY MOUTH TWICE A DAY 180 tablet 1 5 Active apixaban (Eliquis) 5 mg tablet Take 1 tablet (5 mg total) by mouth 2 (two) times a day 60 tablet 3 5 Active Active Problems Problem Noted Date Diagnosed Date retirement current use of amiodarone 10/05/2022 Cardiac pacemaker in situ 02/17/2022 Overview (02/17/2022): Medtronic Janell Dual Pacemaker. Dx; Sinus Node Dysfunction, PAF. DOI 02/17/2022-[employer]. [place] remote. 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 11/24/2016 Hyperlipidemia associated with type 2 diabetes m ellitus 11/24/2016 Chronic stable angina 11/24/2016 Non-rheumatic mitral regurgitation 11/24/2016 Gastroesophageal reflux disease 07/10/2014 Overview (06/09/2016): GERD (gastroesophageal reflux disease) Obstructive sleep apnea 07/10/2014 Overview (06/09/2016): Sleep apnea Hyperlipidemia LDL goal <70 07/10/2014 Overview (06/09/2016): Hyperlipidemia Chest pain 07/10/2014 Overview (06/09/2016): Chest pain YANEZ (dyspnea on exertion) 07/10/2014 Overview (06/09/2016): Dyspnea Hypertension 07/10/2014 Overview (06/09/2016): Hypertension Diabetes mellitus 07/10/2014 Overview (06/09/2016): Diabetes Adiposity 07/10/2014 Overview (06/09/2016): Obesity Social History Tobacco Use Types Packs/Day Years Used Date Smoking Tobacco: Former Cigarettes Q uit: 1960 Smokeless Tobacco: Never Tobacco Cessation:Counseling Given: Not Answered Alcohol Use Standard Drinks/Week Comments Yes 1 (1 standard drink = 0.6 oz pur e alcohol) rarely PHQ-2 Answer Date Recorded PHQ-2 Total Score (If total score is 3 or more points, staff should administer the PHQ-9) 0 09/16/2021 Comments Unknown Sex and Gender Information Value Date Recorded Sex Assigned at Not on file Legal Sex Female 10:41 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 Gender Identity Female 04/29/2020 11:43 AM PAINT POURER Sexual Orientation Not on file Last Filed Vital Signs Vital Sign Reading Time Taken Comments Blood Pressure 100/64 01/12/2024 10:53 AM PAINT POURER Pulse 75 01/12/2024 10:53 AM PAINT POURER Temperature 36.3 C (97.34 F) 09/23/2021 11:29 AM CDT Respiratory Rate 16 09/23/2021 11:29 AM CDT Oxygen Saturation 96% 01/12/2024 10:53 AM PAINT POURER Inhaled Oxygen Concentration - - Weight 77.6 kg (171 lb) 01/12/2024 10:53 AM PAINT POURER Height 162.6 cm (5' 4) 01/12/2024 10:53 AM PAINT POURER Body Mass Index 29.35 01/12/2024 10:53 AM PAINT POURER Plan of Treatment Not on file Medical Devices Implanted Type Area Respiratory Supervisor Device Identifier Shelf Expiration Date Model / Serial / Lot XL Hybrids Angio-Seal Vip Bondek-Plus 8fr .038in 70cm Hemostatic Latex Free [id number] - [id number] Implanted:Qty: 1 on 09/16/2021 at [facility] XL Hybrids 06/03/2022 [id number] / / [id number] Procedures Procedure Name Priority Date/Time Associated Diagnosis Comments DEVICE CHECK - REMOTE Routine 05/22/2024 1:17 PM CDT Cardiac pacemaker in situ Paroxysmal atrial fibrillation (HCC) Sinus node dysfunction (HCC) COMPREHENSIVE METABOLIC PANEL Routine 01/12/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 Dx; Sinus Node Dysfunction, PAF. DOI 02/17/2022-[employer]. Jimenez. Carelink remote. Routine AAI <> DDD Pacemaker Remote. Transmission attached. Battery status: 3.03 V, 13.2 years remaining battery life to DAMION. Stable lead impedances, pacing and sensing thresholds. Presenting rhythm: A sensed/V sensed AP-0.2%, RECEIVING CLERK-< 0.1% No AT/AF episodes noted. No Ventricular high rate episodes detected. Medications: Eliquis 5 mg, amiodarone 100 mg, metoprolol 25 mg See scanned report. [facility] Sony Chavis, RN Amarjit Chun MD CV CARDIAC SERVICES [facility] Final Result * (ABNORMAL) Comprehensive metabolic panel (01/12/2024) SCRIBED Sodium 139 137 - 145 mmol/L EXTERNAL LAB SCRIBED Potassium 4.2 3.4 - 5.0 mmol/L EXTERNAL LAB SCRIBED Chloride 105 98 - 107 mmol/L EXTERNAL LAB SCRIBED Carbon Dioxide 26 22 - 30 mmol/L EXTERNAL LAB SCRIBED Anion Gap 8 4 - 12 mmol/L EXTERNAL LAB SCRIBED Urea Nitrogen (BUN) 28(A) 7 - 17 mg/dl EXTERNAL LAB SCRIBED Creatinine 0.90 0.7 - 1.0 mg/dl EXTERNAL LAB SCRIBED Glucose 110 65 - 110 mg/dl EXTERNAL LAB SCRIBED Calcium 9.2 8.4 - 10.2 mg/dl EXTERNAL LAB SCRIBED Bilirubin 0.6 0.2 - 1.3 mg/dl EXTERNAL LAB SCRIBED Plasma Protein 8.0 6.3 - 8.2 g/dl EXTERNAL LAB SCRIBED Albumin 4.2 3.5 - 5.1 g/dl EXTERNAL LAB SCRIBED Alkaline Phosphatase 84 38 - 126 Units/L EXTERNAL LAB SCRIBED Alanine Transaminase (ALT) 24 6 - 35 Units/L EXTERNAL LAB SCRIBED Aspartate Transaminase (AST) 34 14 - 36 Units/L EXTERNAL LAB SCRIBED eGFR in N/A N/A EXTERNAL LAB SCRIBED eGFR in NonAfrican Spanish 60 > or = 60 EXTERNAL LAB Blood 01/12/2024 Amarjit Chun MD LAB BLOOD ORDERABLES Isabell l Result EXTERNAL LAB * (ABNORMAL) Lipid panel (09/16/2021 8:37 PM CDT) Cholesterol 189 30 - 199 mg/dL [facility] Comment: Interpretive Data Ages < or = 19 years Acceptable: <170 mg/dL Borderline high: 170-199 mg/dL High: >or= 200 mg/dL Ages > or = 20 years Desirable: <200 mg/dL Borderline high: 200-239 mg/dL High: >or= 240 mg/dL Literature References: 1. Expert Panel on Integrated Guidelines for Cardiovascular Health and Risk Reduction in Children and Adolescents. Pediatrics 2011;128:S213 2. NCEP Expert Panel. Circulation 2004;110:227 Current Interpretive Data was last revised on 2017. Triglycerides 230(H) <=149 mg/dL [facility] Comment: Interpretive Data Ages < or = 9 years Acceptable: <75 mg/dL Borderline high: 75-99 mg/dL High: >or= 100 mg/dL Ages 10 to 20 years Acceptable: <90 mg/dL Borderline high: 90-129 mg/dL High: >or= 130 mg/dL Ages > or = 20 years Desirable: <150 mg/dL Borderline high: 150-199 mg/dL High: 200-499 mg/dL Very high: >or= 499 mg/dL Literature References: 1. Expert Panel on Integrated Guidelines for Cardiovascular Health and Risk Reduction in Children and Adolescents. Pediatrics 2011;128:S213 2. NCEP Expert Panel. Circulation 2004;110:227 Current Interpretive Data was last revised on 2017. HDL 38(L) >=40 mg/dL [facility] Comment: Interpretive Data Ages < or = 19 years Acceptable: >45 mg/dL Borderline low: 40-45 mg/dL Low: <40 mg/dL Ages > or = 20 years Desirable: >or= 60 mg/dL Low: <40 mg/dL Literature References: 1. Expert Panel on Integrated Guidelines for Cardiovascular Health and Risk Reduction in Children and Adolescents. Pediatrics 2011;128:S213 2. NCEP Expert Panel. Circulation 2004;110:227 Current Interpretive Data was last revised on 2017. LDL, calculated 105 <=129 mg/dL [facility] Comment: Interpretive Data Ages < or = 19 years Acceptable: <110 mg/dL Borderline high: 110-129 mg/dL High: >or= 130 mg/dL Ages > or = 20 years Optimal: <100 mg/dL Near optimal: 100-129 mg/dL Borderline high: 130-159 mg/dL High: >160 mg/dL Literature References: 1. Expert Panel on Integrated Guidelines for Cardiovascular Health and Risk Reduction in Children and Adolescents. Pediatrics 2011;128:S213 2. NCEP Expert Panel. Circulation 2004;110:227 Current Interpretive Data was last revised on 2017. Non-HDL Cholesterol 151 mg/dL [facility] Comment: Interpretive Data Ages < or = 19 years Acceptable: <120 mg/dL Borderline high: 120-144 mg/dL High: >145 mg/dL Ages > or = 20 years When triglycerides are >200 mg/dL, Non-HDL cholesterol is a secondary target of therapy with treatment goals that are 30 mg/dL greater than the LDL cholesterol target. Literature References: 1. Expert Panel on Integrated Guidelines for Cardiovascular Health and Risk Reduction in Children and Adolescents. Pediatrics 2011;128:S213 2. NCEP Expert Panel. Circulation 2003;110:227 Current Interpretive Data was last revised on 2017. Chol/HDL ratio 5 [facility] Blood 09/16/2021 8:37 PM CDT 09/16/2021 9:02 PM CDT Yari López CIGARETTE FILTER INSPECTOR LAB BLOOD ORDERABLES Final Result [facility] [place] [address] * (ABNORMAL) Hemoglobin A1c (09/16/2021 8:40 AM CDT) Hgb A1C 10.3(H) 4.0 - 5.6 % [facility] Estimated Average Glucose 249 mg/dL [facility] Comment: The ADA recommends reporting an estimated Average Glucose (eAG) with all Hemoglobin A1c results using the equation derived from a study of 507 normal and diabetic adults. Minority populations were underrepresented and children were not included. (Diabetes Care 2020; 43(S1): S66-S76). The eAG is not equivalent to a fasting glucose. Blood 09/16/2021 8:40 AM CDT 09/16/2021 9:21 AM CDT us Yari López NP LAB BLOOD ORDERABLES Final Result [facility] Department [place] [address] from Last 3 Months or Most Recently Relevant to Health Maintenance Insurance MEDICARE [facility] AETNA MEDICARE GOLD MEDICARE [facility] Advance Directives For more information, please contact: [phone] * Full Code (Latest Code Status on File) Date Activated Date Inactivated Comments 09/16/2021 8:18 AM 09/23/2021 9:14 PM Care Teams Aircraft Avionics Technician Relationship Specialty Start Date End Date Tom Roberson DO [facility] [place] [address] PCP - General Family Medicine 11/22/22
--- OUTSIDE RECORDS SUMMARY | 2024-08-01 15:33 | XMS_ITS | Clinical Summary ---
Author Organization [facility] [place] [address] Address [address] [place] [address] Care Team Providers Care Psychiatric Aide Instructor Name Role Phone Tom Roberson DO Primary Care Provider [phone] Allergies Active Allergy Reactions Criticality Noted Date [...] Active Problems Problem Noted Date Diagnosed Date residential current use of amiodarone 10/05/2022 Cardiac pacemaker in situ 02/17/2022 Overview (02/17/2022): Medtronic Durand Dual Pacemaker. Dx; Sinus Node Dysfunction, PAF. [facility]. 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 of [place] heart with stable angina pectoris 11/24/2016 Hyperlipidemia [...] (06/09/2016): Diabetes Adiposity 07/10/2014 Overview (06/09/2016): Obesity Encounters Date Type Department Care Team Description 05/21/2024 7:45 AM CDT Ancillary Procedure [facility] Medical Group Cardiology [address] [place] [id number] Cardiac pacemaker in situ; Paroxysmal atrial fibrillation (HCC); Sinus node dysfunction (HCC) from Last 3 Months Surgical History Surgery Date Site/Laterality Comments APPENDECTOMY CATARACT EXTRACTION 02/2020 CHOLECYSTECTOMY HYSTERECTOMY 1976 SHUNT EXTERNALIZATION Medical History Medical History Date Comments Hx Other Medical hypertension, o besity, high cholesterol, diabetes,; Comments: MAF 07/10/2014 - Hx Other Medical 3 buldging disc ; Comments: TYW 07/08/2015 - Hx Other Medical 1 herniated seth tebrae; Comments: TYW 07/08/2015 - Stroke (HCC) GERD (gastroesophageal reflux disease) Arthritis Asthma Depression Diabetes mellitus (HCC) Migraines Heart disease Hypertension Sleep apnea Family History Medical History Relation Name Comments Cancer Father Silvestre Juarez Liver cancer Father Silvestre Juarez Cancer, liver; Cause of : Cancer, liver Stroke Maternal Grandmother Tonia Arthritis Mother Pamela James Cancer Mother Pamela James Cancer, unknown ; Cause of : Cancer, unknown Heart disease Mother Pamela James Hypertension Mother Pamela James Asthma Sister 1 Kim M Hearing loss Sister 2 Arlen Miscarriages / Stillbirths Sister 2 Arlen Relation Name Status Comments Father Silvestre Juarez Maternal Grandmother Tonia Mother Pamela James Sister 1 Kim M Sister 2 Arlen Social History Tobacco Use Types Packs/Day Years [...] on file Legal Sex 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 Gender Identity Female 04/29/2020 11:43 AM CATALYST MANUFACTURING OPERATOR Sexual Orientation Not on file Obstetrics History Last Filed Vital Signs Vital Sign Reading Time Taken Comments Blood Pressure 100/64 01/12/2024 10:53 AM CATALYST MANUFACTURING OPERATOR Pulse 75 01/12/2024 10:53 AM CATALYST MANUFACTURING OPERATOR Temperature 36.3 C (97.34 F) 09/23/2021 11:29 AM CDT Respiratory Rate 16 09/23/2021 11:29 AM CDT Oxygen Saturation 96% 01/12/2024 10:53 AM CATALYST MANUFACTURING OPERATOR Inhaled Oxygen Concentration - - Weight 77.6 kg (171 lb) 01/12/2024 10:53 AM CATALYST MANUFACTURING OPERATOR Height 162.6 cm (5' 4) 01/12/2024 10:53 AM CATALYST MANUFACTURING OPERATOR Body Mass Index 29.35 01/12/2024 10:53 AM CATALYST MANUFACTURING OPERATOR Plan of Treatment Health Maintenance Due Date Last Done Comments Albumin Creatinine Ratio, Urine 1940 Osteoporosis Screening-Bone Density Scan 1940 Dilated Eye Exam 1940 Foot Exam 1940 Hepatitis B Screening 1958 Well Visit 65+ 2005 Hemoglobin A1C 03/19/2022 09/16/2021 Depression Screening 09/16/2022 09/16/2021 Lipid Panel 09/16/2022 09/16/2021, 11/04, 05/01/2020, Additional history exists Fall Risk Assessment 09/23/2022 09/23/2021 Covid-19 Vaccine (5 - 2023-2 5 season) 2023 06/25/2021, 12/01/2020, 05/07/2020, Additional history exists DTaP/Tdap/Td Vaccine (2 - Td or Tdap) 09/30/2024 09/30/2014 Influenza Vaccine (Season Ended) 2024 11/16/2020, 10/31/2019, 01/02/2019, Additional history exists eGFR 01/11/2025 01/12/2024, 1209/2021, 09/23/2021, Additional history exists Pneumococcal vaccine 65+ Completed 12/02/2016, 12/04 Zoster Vaccine Completed 12/07/2018, 08/28/2018 Medical Devices Implanted Type Area Guest Request Runner Device Identifier Shelf Expiration Date Model / Serial / Lot [employer] Angio-Seal Vip Bondek-Plus 8fr .038in 70cm Hemostatic Latex Free [id number] - [id number] Implanted:Qty: 1 on 09/16/2021 at [facility] [employer] 06/03/2022 [id number] / / [id number] Procedures Procedure Name Priority Date/Time Associated Diagnosis Comments DEVICE CHECK - REMOTE Routine 05/22/2024 1:17 PM CDT Cardiac pacemaker in situ Paroxysmal atrial fibrillation (HCC) Sinus node dysfunction (HCC) COMPREHENSIVE METABOLIC PANEL Routine 01/12/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 Dx; Sinus Node Dysfunction, PAF. DOI 02/17/2022-[employer]. [facility]. Carelink remote. Routine AAI <> DDD Pacemaker Remote. Transmission attached. Battery status: 3.03 V, 13.2 years remaining battery life to DAMION. Stable lead impedances, pacing and sensing thresholds. 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 No Ventricular high rate episodes detected. Medications: Eliquis 5 mg, amiodarone 100 mg, metoprolol 25 mg See scanned report. Office pacemaker follow up: 08/14/24 [facility] remote f/u 6 months. Sony Chavis, BOBBY Amarjit Chun MD CV CARDIAC SERVICES [facility] Final Result * (ABNORMAL) Comprehensive metabolic panel [...] N/A EXTERNAL LAB SCRIBED eGFR in NonAfrican Wallisian 60 > or = 60 EXTERNAL LAB Blood 01/12/2024 us Amarjit Chun MD LAB BLOOD ORDERABLES Isabell chavarria Result EXTERNAL LAB * (ABNORMAL) Lipid panel (09/16/2021 8:37 PM CDT) Cholesterol 189 30 - 199 mg/dL [facility] Comment: Interpretive Data Ages < or [...] revised on 2017. Triglycerides 230(H) <=149 mg/dL [facility] Comment: Interpretive Data Ages < or [...] revised on 2017. HDL 38(L) >=40 mg/dL [facility] Comment: Interpretive Data Ages < or = [...] on 2017. LDL, calculated 105 <=129 mg/dL [facility] Comment: Interpretive Data Ages < or [...] revised on 2017. Non-HDL Cholesterol 151 mg/dL [facility] Comment: Interpretive Data Ages < or [...] last revised on 2017. Chol/HDL ratio 5 [facility] Blood 09/16/2021 8:37 PM CDT 09/16/2021 9:02 PM CDT Yari López NP LAB BLOOD ORDERABLES Final Result [facility] Department [place] [address] * (ABNORMAL) Hemoglobin A1c (09/16/2021 8:40 AM CDT) Hgb A1C 10.3(H) 4.0 - 5.6 % [facility] Estimated Average Glucose 249 mg/dL [facility] Comment: The ADA recommends reporting an estimated Average Glucose (eAG) with all Hemoglobin A1c results using the equation derived from a study of 507 normal and diabetic adults. Minority populations were underrepresented and children were not included. (Diabetes Care 2020; 43(S1): S66-S76). The eAG is not equivalent to a fasting glucose. Blood 09/16/2021 8:40 AM CDT 09/16/2021 9:21 AM CDT Yari López NP LAB BLOOD ORDERABLES Final Result [facility] Department [place] [address] from Last 3 Months or Most Recently Relevant to Health Maintenance Insurance MEDICARE [facility] AETNA MEDICARE GOLD MEDICARE [facility] Advance Directives For more information, please contact: [phone] * Full Code (Latest Code Status on File) Date Activated Date Inactivated Comments 09/16/2021 8:18 AM 09/23/2021 9:14 PM Care Teams Psychiatric Aide Instructor Relationship Specialty Start Date End Date Tom Roberson DO [facility] [facility] [place] [address] PCP - General Family Medicine 11/22/22
[2024-08-01 15:56] VITALS: BP 121/59; PULSE 87; RESP 16; TEMP 36.6; O2SAT 100
--- NOTE | 2024-08-01 16:27 | ED_ITS ---
HPI - Wound/Laceration General Chief Complaint: Wound/Laceration <Amy Estrella PA-C - Last Filed: 08/02/24 11:00> Stated Complaint: wound on R riggs after fall 2 weeks ago <Amy Estrella PA-C - Last Filed: 08/02/24 11:00> Time Seen by Provider: 08/01/24 16:27 <Amy Estrella PA-C - Last Filed: 08/02/24 11:00> Focused HPI: This is a 83 year old female that presents to the ER for a wound to the right riggs. Reports redness and swelling to the area. Reports she fell two weeks ago. She fell down about 4 steps and hit her irggs on the concrete step. Reports she has been putting Neosporin on the wound. Denies vision changes, vomiting, numbness. GENERAL: Elderly, well-nourished, and in no acute distress. HEAD: Normocephalic, atraumatic. CHEST: Clear to auscultation. ?No respiratory distress. HEART: Regular rate and rhythm.? NEURO: ?Alert and oriented x3. Patient screened in triage and initial orders placed.? ?Additional care and disposition to be based upon?diagnostic testing and treatment. <Amy Estrella PA-C - Last Filed: 08/02/24 11:00> History of Present Illness HPI narrative: Agree with the HPI above. Patient does have a history of atrial fibrillation and fell on Eliquis but has no headache, vision changes, significant concerns other than a nonhealing wound to her right lower anterior riggs. She has various scabs over other extremities that are well healed but no other concerns at this time. <David Campo MD - Last Filed: 08/01/24 22:31> Related Data Home Medications: Home Medications ?Medication ?Instructions ?Recorded ?Confirmed ?Last Taken ?Type calcium carbonate (Calcium 600) 600 mg PO DAILY 01/16/19 07/22/24 02/16/22 History coenzyme Q10 10 mg capsule (Co 10 mg PO DAILY 01/16/19 07/22/24 02/17/22 History Q-10) magnesium oxide 400 mg PO DAILY 10/26/20 07/22/24 02/16/22 History albuterol sulfate 90 mcg/actuation 2 puff inhalation BID PRN asthma 02/17/22 07/22/24 Unknown History aerosol inhaler fluticasone propionate 50 2 spray intranasal DAILY PRN 02/17/22 07/22/24 Unknown History mcg/actuation nasal Allergic Symptoms spray,suspension metoprolol tartrate 50 mg tablet 25 mg PO Q12HR 02/17/22 07/22/24 02/16/22 History amiodarone 100 mg tablet 100 mg PO DAILY 03/14/22 07/22/24 Unknown History blood-glucose sensor (FreeStyle 09/21/22 07/22/24 Unknown History Guerline 3 Sensor device) <Amy Estrella PA-C - Last Filed: 08/02/24 11:00> Allergies/Adverse Reactions: Allergies Allergy/AdvReac Type Severity Reaction Status Date / Time clavulanic acid Allergy Intermediate PURITIS Verified 07/22/24 13:11 amoxicillin Allergy Unknown Unknown Verified 07/22/24 13:11 amphetamine Allergy Unknown possible Verified 07/22/24 13:11 cause of pruritis, no rash- mild cefuroxime Allergy Unknown Unknown Verified 07/22/24 13:11 erythromycin base Allergy Unknown Unknown Verified 07/22/24 13:11 lodoxamide Allergy Unknown Nausea Verified 07/22/24 13:11 Avoid Medications that AdvReac Intermediate Other Uncoded 07/22/24 13:11 prolong QT Intervals <Amy Estrella PA-C - Last Filed: 08/02/24 11:00> Review of Systems 2 Review of Systems: As reviewed above in HPI <David Campo MD - Last Filed: 08/01/24 22:31> [facility] Past Medical History Medical History: Medical History History of stroke with residual deficit Pacemaker Pure hyperglyceridemia Other seborrheic keratosis Open wound of index finger Localized dermatitis Dysfunction of left eustachian tube BMI 33.0-33.9,adult Hypokalemia Mitral insufficiency and aortic stenosis echo 10-21 moderate ID and 1.82 cm2 Post-menopausal Diabetic neuropathy Metabolic syndrome Cataracts, bilateral SOB (shortness of breath) Hypertension Asthma Arthritis Back pain Trigger finger, left middle finger Atherosclerotic heart disease of [place] coronary artery with other forms of angina pectoris Gastro-esophageal reflux disease without esophagitis Major depressive disorder, single episode, unspecified Pure sensory lacunar syndrome Restless legs syndrome Type 2 diabetes mellitus with hyperglycemia <Amy Estrella PA-C - Last Filed: 08/02/24 11:00> Surgical History Surgical History: Surgical History H/O major cardiovascular surgery pacemaker Hx of cholecystectomy History of appendectomy History of carpal tunnel release H/O sinus surgery H/O: hysterectomy H/O cardiac catheterization <Amy Estrella PA-C - Last Filed: 08/02/24 11:00> Family History Family History: Family History Mother Hypertension Other Asthma Family history of arthritis <Amy Estrella PA-C - Last Filed: 08/02/24 11:00> Social History Social History: Social History Smoking packs per day: 0.5 Smoking cigarettes per day: 10.0 Years smoked: 20 Smoking pack-years: 10.00 Smoking status: Former smoker Alcohol intake: former Substance use: never Lack of Transportation: No Lack of Food: Never True Current Housing: I Have Housing Concerned About Future Housing: No Difficulty Paying Gas/Electric Bills: No Difficulty Paying for Meds: No Currently Unemployed: No Education: Associate Degree Difficulty w/ Childcare or Family Care: No Living arrangements: with family Occupation/Education: retired Gender identity (if verbalized by the patient): Female Sexual Orientation (if Verbalized by the Patient): Straight or Heterosexual Spiritual care concerns: No Agree to blood products: Yes <AVERY Obregon Last Filed: 08/02/24 11:00> Exam 2 Narrative: GENERAL: [Well-appearing, well-nourished, and in no acute distress.] HEAD: [Normocephalic, atraumatic.] EYES: [PERRLA and EOMI.] ENT: Nares clear, no rhinorrhea or epistaxis. Mucous membranes moist. NECK: Supple. CHEST: [Clear to auscultation. No respiratory distress.] HEART: [Regular rate and rhythm]. No murmur heard. [Normal peripheral pulses.] ABDOMEN: [Soft, nondistended], [nontender], [No rigidity or guarding] EXTREMITIES: Normal range of motion. [No edema.] SKIN: There is an ulceration to the anterior right riggs that is proximally 3 cm x 1.5 cm with some surrounding erythema and blanching redness to palpation with mild tenderness but no weeping, oozing. Appears to have good granulation tissue surrounding the wound. She has various scabs over her bilateral elbows and left lower extremity there are well-healed not actively infected or showing any signs of cellulitis. NEURO: [No focal deficits]. Alert and oriented [x3.] PSYCH: [Normal mood and affect.] <David Campo MD - Last Filed: 08/01/24 22:31> Course Vital Signs Vital signs: Vital Signs Temperature 97.8 F 08/01/24 15:56 Pulse Rate 87 08/01/24 15:56 Respiratory Rate 16 08/01/24 15:56 Blood Pressure 121/59 L 08/01/24 15:56 Pulse Oximetry 100 08/01/24 15:56 Temperature 97.8 F 08/01/24 22:46 Pulse Rate 78 08/01/24 22:46 Respiratory Rate 16 08/01/24 22:46 Blood Pressure 130/60 08/01/24 22:46 Pulse Oximetry 100 08/01/24 22:46 <Amy Estrella PA-C - Last Filed: 08/02/24 11:00> Vital Signs Temperature 97.8 F 08/01/24 15:56 Pulse Rate 87 08/01/24 15:56 Respiratory Rate 16 08/01/24 15:56 Blood Pressure 121/59 L 08/01/24 15:56 Pulse Oximetry 100 08/01/24 15:56 Temperature 97.8 F 08/01/24 22:46 Pulse Rate 78 08/01/24 22:46 Respiratory Rate 16 08/01/24 22:46 Blood Pressure 130/60 08/01/24 22:46 Pulse Oximetry 100 08/01/24 22:46 <David Campo MD - Last Filed: 08/01/24 22:31> MDM - Wound/Laceration MDM Narrative Medical decision making narrative: 83-year-old female presenting to the emergency department for evaluation of wound on her right riggs after falling 2 weeks ago. She is on Eliquis for atrial fibrillation she also has a history of hypertension, diabetes, previous CVA. She is ambulatory without any assistance, has no focal neurological deficits, not complain of any headache, neck pain or neurological complaints. She states she has been using Neosporin on a wound to her right leg that has not been healed but her other scrapes from her injury of all healed with some scabs. She is up-to-date on her tetanus according to her. Has some allergies to antibiotics but otherwise no recent medications or antibiotic use otherwise. Examination reveals an injury with ulceration to the anterior right riggs that is proximally 3 cm x 1.5 cm with some surrounding erythema and blanching redness to palpation with mild tenderness but no weeping, oozing. Appears to have good granulation tissue surrounding the wound. She has various scabs over her bilateral elbows and left lower extremity that are well without signs of infection. Considerations presently are for an anterior right riggs wound/ulcer with some surrounding cellulitis, low suspicion for deep space infection or osteomyelitis or occult fracture. X-rays of the leg were obtained as well as blood work to rule out any systemic response. CT of the head was obtained given her age fall and tenderness and risk factors. CT head shows no acute intracranial hemorrhage or suspicious mass effect. X-ray shows arthritis but no acute osseous abnormality or deep space infection appreciable. Soft tissues are unremarkable patient provided a dose of doxycycline IV for her wound cellulitis with her history of diabetes and to cover for any potential MRSA. Patient's workup shows no leukocytosis or anemia. Normal platelet count. Electrolytes are unremarkable. Normal creatinine, negative C-reactive protein, mildly elevated glucose. Patient is safe for discharge home at this time with a prescription for doxycycline to help treat her right lower extremity wound infection/cellulitis. Patient given return precautions and follow-up instructions are PCP which she verbalized understanding prior to safe discharge home. <David Campo MD - Last Filed: 08/01/24 22:31> Medical Records Attestation: I reviewed the patient's medical records. <David Campo MD - Last Filed: 08/01/24 22:31> Lab Data Attestation: I reviewed the patient's lab results. <David Campo MD - Last Filed: 08/01/24 22:31> Result diagrams: 08/01/24 21:07 08/01/24 21:07 <Amy Estrella PA-C - Last Filed: 08/02/24 11:00> Labs: Lab Results 08/01/24 Range/Units 21:07 WBC 9.1 (4.5-10.0) K/mm3 RBC 4.88 (4.2-5.4) M/mm3 Hgb 14.0 (12.0-15.0) g/dL Hct 42.0 (37.0-47.0) % MCV 86.1 (80-100) fl MCH 28.7 (26-34) pg MCHC 33.3 (32-36) g/dl RDW 12.7 (11.5-14.5) % Plt Count 266 (150-375) k/mm3 MPV 9.5 (7.4-10.4) fl Immature Gran % (Auto) 0.5 (0-0.5) % Neut % (Auto) 60.1 (45.5-73.1) % Lymph % (Auto) 29.5 (18.3-44.2) % Robeson % (Auto) 6.5 (2.6-8.5) % Eos % (Auto) 2.7 (0-4.4) % Baso % (Auto) 0.7 (0.2-1.2) % Lymph # (Auto) 2.69 (0.9-3.2) K/mm3 Robeson # (Auto) 0.6 (0.1-0.6) K/mm3 Eos # (Auto) 0.3 (0-0.3) K/mm3 Baso # (Auto) 0.1 (0.0-0.1) K/mm3 Abs Immat Gran (auto) 0.05 H (0.00-0.031) K/mm3 Absolute Neuts (auto) 5.5 (1.3-6.7) K/mm3 Absolute Nucleated RBC 0.000 (0.0-0.012) K/mm3 Nucleated RBC % 0.0 (0.0-0.2) % ESR 23 H (0-20) mm/hr Sodium 136 L (137-145) mmol/L Potassium 4.8 (3.4-5.0) mmol/L Chloride 99 (98-107) mmol/L Carbon Dioxide 26 (22-30) mmol/L Anion Gap 11 (4-12) mmol/L BUN 29 H (7-17) mg/dL Creatinine 0.89 (0.7-1.0) mg/dL Estim Creat Clear Calc 43 ml/min Estimated GFR > 60 (59 - ) Glucose 160 H (65-110) mg/dL Calcium 9.9 (8.4-10.2) mg/dL C-Reactive Protein < 0.5 (<1.0) mg/dL <Amy Estrella PA-C - Last Filed: 08/02/24 11:00> Lab Results 08/01/24 Range/Units 21:07 WBC 9.1 (4.5-10.0) K/mm3 RBC 4.88 (4.2-5.4) M/mm3 Hgb 14.0 (12.0-15.0) g/dL Hct 42.0 (37.0-47.0) % MCV 86.1 (80-100) fl MCH 28.7 (26-34) pg MCHC 33.3 (32-36) g/dl RDW 12.7 (11.5-14.5) % Plt Count 266 (150-375) k/mm3 MPV 9.5 (7.4-10.4) fl Immature Gran % (Auto) 0.5 (0-0.5) % Neut % (Auto) 60.1 (45.5-73.1) % Lymph % (Auto) 29.5 (18.3-44.2) % Robeson % (Auto) 6.5 (2.6-8.5) % Eos % (Auto) 2.7 (0-4.4) % Baso % (Auto) 0.7 (0.2-1.2) % Lymph # (Auto) 2.69 (0.9-3.2) K/mm3 [place]eson # (Auto) 0.6 (0.1-0.6) K/mm3 Eos # (Auto) 0.3 (0-0.3) K/mm3 Baso # (Auto) 0.1 (0.0-0.1) K/mm3 Abs Immat Gran (auto) 0.05 H (0.00-0.031) K/mm3 Absolute Neuts (auto) 5.5 (1.3-6.7) K/mm3 Absolute Nucleated RBC 0.000 (0.0-0.012) K/mm3 Nucleated RBC % 0.0 (0.0-0.2) % ESR 23 H (0-20) mm/hr Sodium 136 L (137-145) mmol/L Potassium 4.8 (3.4-5.0) mmol/L Chloride 99 (98-107) mmol/L Carbon Dioxide 26 (22-30) mmol/L Anion Gap 11 (4-12) mmol/L BUN 29 H (7-17) mg/dL Creatinine 0.89 (0.7-1.0) mg/dL Estim Creat Clear Calc 43 ml/min Estimated GFR > 60 (59 - ) Glucose 160 H (65-110) mg/dL Calcium 9.9 (8.4-10.2) mg/dL C-Reactive Protein < 0.5 (<1.0) mg/dL <David Campo MD - Last Filed: 08/01/24 22:31> Imaging Data Attestation: I personally reviewed and interpreted this imaging study as follows: < David Campo MD - Last Filed: 08/01/24 22:31> My impression: Impressions Head CT 08/01/24 17:00 Impression: No acute intracranial hemorrhage or suspicious mass effect. Tibia/Fibula X-Ray 08/01/24 17:00 IMPRESSION: 1. 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 No acute osseous abnormality. <David Campo MD - Last Filed: 08/01/24 22:31> Critical Care Time Critical Care Time Critical Care Time: No <Amy Estrella PA-C - Last Filed: 08/02/24 11:00> Discharge Plan Discharge Clinical Impression: Wound infection Leg wound, right Qualifiers: Encounter type: initial encounter Qualified Code(s): S81.801A - Unspecified open wound, right lower leg, initial encounter <Amy Estrella PA-C - Last Filed: 08/02/24 11:00> Patient Disposition: Home <Amy Estrella PA-C - Last Filed: 08/02/24 11:00> Condition: Stable <AVERY Obregon Last Filed: 08/02/24 11:00> Instructions: Antibiotic Form, Wound Infection (DC) <Amy Estrella PA-C - Last Filed: 08/02/24 11:00> Additional Instructions: We will treat your right lower extremity wound which appears mildly infected with a course of doxycycline which is a strong antibiotic. Follow-up with your primary care provider. Return to the ER with any worsening concerns such as spreading of the wound or infection or any other concerns. <Amy Estrella PA-C - Last Filed: 08/02/24 11:00> Patient Language: Kazakh <Amy Estrella PA-C - Last Filed: 08/02/24 11:00> Prescriptions: New doxycycline hyclate 100 mg capsule 100 mg PO BID 7 Days Qty: 14 0RF No Action calcium carbonate [Calcium 600] 600 mg calcium (1,500 mg) tablet 600 mg PO DAILY coenzyme Q10 [Co Q-10] 10 mg capsule 10 mg PO DAILY magnesium oxide 400 mg magnesium capsule 400 mg PO DAILY nitroglycerin 0.4 mg tablet, sublingual 0.4 mg SUBLINGUAL Q5M PRN (Reason: chest pain) Qty: 25 5RF (DME) home nebulizer See Rx Instructions .Route .MEDSUPPLY Qty: 1 0RF Rx Instructions: As directed ipratropium-albuterol 0.5 mg-3 mg(2.5 mg base)/3 mL solution for nebulization 3 ml inhalation QID PRN (Reason: shortness of breath) Qty: 90 0RF amiodarone 100 mg tablet 100 mg PO DAILY (DME) FreeStyle Guerline 3 Sensor Device See Rx Instructions .Route Rx Instructions: As directed insulin regular hum U-500 conc 500 unit/mL (3 mL) insulin pen See Rx Instructions subcut .COMPLEX MDD 140 90 Days Qty: 27 3RF Rx Instructions: 100 units before breakfast and 30 units before dinner subcutaneously; Ozempic 1 mg/dose (4 mg/3 mL) pen injector 1 mg subcut WEEKLY 90 Days Qty: 9 1RF metoprolol tartrate 50 mg tablet 25 mg PO Q12HR albuterol sulfate 90 mcg/actuation HFA aerosol inhaler 2 puff inhalation BID PRN (Reason: asthma) fluticasone propionate 50 mcg/actuation spray,suspension 2 spray NASAL DAILY PRN (Reason: Allergic Symptoms) (DME) lancets 33 gauge misc See Rx Instructions .ROUTE .MEDSUPPLY Qty: 200 3RF Rx Instructions: use to check BS 2 times daily E11.65 insulin dependent (DME) Contour Next Test Strips Strip See Rx Instructions .ROUTE .COMPLEX Qty: 200 0RF Dose Instruction: USE 2 TIMES DAILY Rx Instructions: USE 2 TIMES DAILY Eliquis 5 mg tablet 5 mg PO Q12HR 30 Days Qty: 60 3RF pantoprazole 40 mg tablet,delayed release (DR/EC) 40 mg PO QAM Qty: 90 1RF budesonide-formoterol [Symbicort] 160-4.5 mcg/actuation HFA aerosol inhaler 2 puff inhalation DAILY Qty: 10.2 0RF atorvastatin 80 mg tablet 80 mg PO DAILY Qty: 90 1RF venlafaxine 75 mg tablet 75 mg PO BID Qty: 180 1RF ropinirole 1 mg tablet 3 mg PO QHS Qty: 270 1RF insulin degludec [Tresiba FlexTouch U-200] 200 unit/mL (3 mL) insulin pen 15 unit subcut DAILY 90 Days Qty: 9 1RF pen needle, diabetic 31 gauge x 3/16 needle See Rx Instructions .ROUTE .COMPLEX Qty: 400 4RF Dose Instruction: USE TO INJECT ONCE DAILY Rx Instructions: USE TO INJECT 3-4 times daily <Amy Estrella PA-C - Last Filed: 08/02/24 11:00> Follow-up/Referrals: Lyndon Hough, [Primary Care Provider] - <Amy Estrella PA-C - Last Filed: 08/02/24 11:00> Time of Disposition: 22:30 <Amy Estrella PA-C - Last Filed: 08/02/24 11:00> 22:30 <David Campo MD - Last Filed: 08/01/24 22:31>
[2024-08-01 20:09] VITALS: BP 125/65; PULSE 79; RESP 16; TEMP 36.6; O2SAT 100
[2024-08-01 21:16] LABS: Basophils Absolute Auto 0.1 K/mm3 (0.0-0.1); Basophils Percent Auto 0.7 % (0.2-1.2); Eosinophils Absolute Auto 0.3 K/mm3 (0-0.3); Eosinophils Percent Auto 2.7 % (0-4.4); Immature Granulocyte Absolute 0.05 K/mm3 (0.00-0.031); Immature Granulocyte Percent A 0.5 % (0-0.5); Lymphocytes Absolute Auto 2.69 K/mm3 (0.9-3.2); Lymphocytes Percent Auto 29.5 % (18.3-44.2); Mean Corpuscular HGB Conc 33.3 g/dl (32-36); Mean Corpuscular Hemoglobin 28.7 pg (26-34); Mean Corpuscular Volume 86.1 fl (80-100); Mean Platelet Volume 9.5 fl (7.4-10.4); Monocytes Absolute Auto 0.6 K/mm3 (0.1-0.6); Monocytes Percent Auto 6.5 % (2.6-8.5); Neutrophils Absolute Auto 5.5 K/mm3 (1.3-6.7); Neutrophils Percent Auto 60.1 % (45.5-73.1); Platelet Count Result 266 k/mm3 (150-375); Red Blood Count 4.88 M/mm3 (4.2-5.4); Red Cell Distribution Width 12.7 % (11.5-14.5); White Blood Count 9.1 K/mm3 (4.5-10.0)
--- OUTSIDE RECORDS SUMMARY | 2024-08-01 21:27 | XMS_ITS | Clinical Summary ---
Author [place] [facility] [place] [address] Address [address] [place] [address] Care Team Providers Care Full Time Paramedic Name Role Phone Tom Roberson DO Primary Care Provider [phone] Allergies Active Allergy Reactions Criticality Noted Date [...] Active Problems Problem Noted Date Diagnosed Date shelter current use of amiodarone 10/05/2022 Cardiac pacemaker in situ 02/17/2022 Overview (02/17/2022): [employer] [place] Dual Pacemaker. Dx; Sinus Node Dysfunction, PAF. [facility]. 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 of [place] heart with stable angina pectoris 11/24/2016 Hyperlipidemia [...] Encounters Date Type Department Care Team Description 08/01/2024 Telephone [facility] Cardiology [address] [place] [phone] Amarjit Chun MD 05/21/2024 7:45 AM CDT Ancillary Procedure [facility] [address] [place] [phone] Cardiac pacemaker in situ; Paroxysmal atrial fibrillation [...] Heart disease Mother Pamela James Hypertension Mother aPmela James Asthma Sister 1 Kim Santiago Hearing loss Sister 2 Arlen Miscarriages / Stillbirths Sister 2 Arlen Relation Name Status Comments Father Silvestre Juarez Maternal Grandmother Tonia Mother Pamela James Sister 1 Kim Santiago Sister 2 Arlen Social History Tobacco Use [...] on file Legal Sex 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 Gender Identity Female 04/29/2020 11:43 AM WELDING INSTRUCTOR Sexual Orientation Not on file Obstetrics History Last Filed Vital Signs Vital Sign Reading Time Taken Comments Blood Pressure 100/64 01/12/2024 10:53 AM WELDING INSTRUCTOR Pulse 75 01/12/2024 10:53 AM WELDING INSTRUCTOR Temperature 36.3 C (97.34 F) 09/23/2021 11:29 AM CDT Respiratory Rate 16 09/23/2021 11:29 AM CDT Oxygen Saturation 96% 01/12/2024 10:53 AM WELDING INSTRUCTOR Inhaled Oxygen Concentration - - Weight 77.6 kg (171 lb) 01/12/2024 10:53 AM WELDING INSTRUCTOR Height 162.6 cm (5' 4) 01/12/2024 10:53 AM WELDING INSTRUCTOR Body Mass Index 29.35 01/12/2024 10:53 AM WELDING INSTRUCTOR Plan of Treatment Health Maintenance Due Date [...] 01/02/2019, Additional history exists eGFR 01/11/2025 01/12/2024, 09/2021, 09/23/2021, Additional history exists Pneumococcal vaccine 65+ Completed 12/02/2016, 12/04 Zoster Vaccine Completed 12/07/2018, 08/28/2018 Medical Devices Implanted Type Area [employer] Device Identifier Shelf Expiration Date Model / Serial / Lot [employer] Angio-Seal Vip Bondek-Plus 8fr .038in 70cm Hemostatic Latex Free [id number] - [id number] Implanted:Qty: 1 on 09/16/2021 at [facility] [employer] 06/03/2022 [id number] / / [id number] Procedures Procedure Name Priority Date/Time Associated Diagnosis Comments DEVICE CHECK - REMOTE Routine 05/22/2024 1:17 PM CDT Cardiac pacemaker in situ Paroxysmal atrial fibrillation (HCC) Sinus node dysfunction (HCC) COMPREHENSIVE METABOLIC PANEL Routine 01/12/2024 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 Presenting rhythm: A sensed/V sensed AP-0.2%, MOLDER VACUUM-< 0.1% No AT/AF episodes noted. No Ventricular high rate episodes detected. Medications: Eliquis 5 mg, amiodarone 100 mg, metoprolol 25 mg See scanned report. Office pacemaker follow up: 08/14/24 [facility] remote f/u 6 months. Sony Chavis RN Amarjit Chun MD [facility] Final Result * (ABNORMAL) Comprehensive metabolic panel [...] N/A EXTERNAL LAB SCRIBED eGFR in NonAfrican Swiss 60 > or = 60 EXTERNAL LAB Blood 01/12/2024 us Amarjit Chun MD LAB BLOOD ORDERABLES Isabell chavarria Result EXTERNAL LAB * (ABNORMAL) Lipid panel (09/16/2021 8:37 PM CDT) Cholesterol 189 30 - 199 mg/dL [facility] Comment: Interpretive Data Ages < or = [...] revised on 2017. Triglycerides 230(H) <=149 mg/dL [facility] Comment: Interpretive Data Ages < or = [...] revised on 2017. HDL 38(L) >=40 mg/dL [facility] Comment: Interpretive Data Ages < or = [...] on 2017. LDL, calculated 105 <=129 mg/dL [facility] Comment: Interpretive Data Ages < or = [...] revised on 2017. Non-HDL Cholesterol 151 mg/dL [facility] Comment: Interpretive Data Ages < or = [...] last revised on 2017. Chol/HDL ratio 5 [facility] Blood 09/16/2021 8:37 PM CDT 09/16/2021 9:02 PM CDT us Yari López NP LAB BLOOD ORDERABLES Final Result [facility] Department [place] [address] * (ABNORMAL) Hemoglobin A1c (09/16/2021 8:40 AM CDT) Hgb A1C 10.3(H) 4.0 - 5.6 % [facility] Estimated Average Glucose 249 mg/dL [facility] Comment: The ADA recommends reporting an estimated [...] López NP LAB BLOOD ORDERABLES Final Result [facility] Department [place] [address] from Last 3 Months or Most Recently Relevant to Health Maintenance Insurance MEDICARE [facility] [employer] MEDICARE GOLD MEDICARE [facility] Advance Directives For more information, please contact: [phone] * Full Code (Latest Code Status on File) Date Activated Date Inactivated Comments 09/16/2021 8:18 AM 09/23/2021 9:14 PM Care Teams Full Time Paramedic Relationship Specialty Start Date End Date Tom Roberson DO [facility] [place] [address] [place] [address] PCP - General Family Medicine 11/22/22
--- OUTSIDE RECORDS SUMMARY | 2024-08-01 21:27 | XMS_ITS | Encounter Summary ---
Author Organization [facility] Healthcare Address [address] [place] [address] Care Team Providers Care Weight Clerk Name Role Phone Tom Roberson Primary Care Provider [phone] Encounter Details Date Type Department Care Team (Late st Contact Info) Description 08/01/2024 Telephone [facility] Medical Group Cardiology [address] [place] [phone] Amarjit Chun MD [address] [place] [address] Social History Tobacco Use Types Packs/Day Years Used Date Smoking Tobacco: Former Cigarettes Q uit: 1960 Smokeless Tobacco: Never Alcohol Use Standard Drinks/Week Comments Yes 1 (1 standard drink = 0.6 oz pur e alcohol) rarely PHQ-2 Answer Date Recorded PHQ-2 Total Score (If total score is 3 or more points, staff should administer the PHQ-9) 0 09/16/2021 Comments Unknown Sex and Gender Information Value Date Recorded Sex Assigned at Not on file Legal Sex Female 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 I left a detailed message for patient to call the office back to reschedule this appointment to late August or September as I will be out of the office. documented in this encounter Plan of Treatment Not on file documented as of this encounter Visit Diagnoses Not on filedocumented in this encounter Care Teams Weight Clerk Relationship Specialty Start Date End Date Tom Roberson DO [facility] [address] [address] PCP - General Family Medicine 11/22/22 documented as of this encounter
--- OUTSIDE RECORDS SUMMARY | 2024-08-01 21:27 | XMS_ITS | Referral Summary ---
Author Organization [facility] [address] Address [address] [place] [address] Care Team Providers Care Second Class Welder Name Role Phone Tom Roberson DO Primary Care Provider [phone] Encounters Date Type Department Care Team Description 08/01/2024 Telephone [facility] Medical [facility] Cardiology [address] [place] [address] [place], [place] [address] [phone] Amarjit Chun MD 05/21/2024 7:45 AM CDT Ancillary Procedure [facility] Cardiology [address] [facility] [address] [place] [address] [place] [phone] Cardiac pacemaker in situ; Paroxysmal atrial [...] Active Problems Problem Noted Date Diagnosed Date [facility] current use of amiodarone 10/05/2022 Cardiac pacemaker in situ 02/17/2022 Overview (02/17/2022): Medtronic Janell Dual Pacemaker. Dx; Sinus Node Dysfunction, PAF. [facility] remote. 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 Gender Identity Female 04/29/2020 11:43 AM CAREER DISCOVERY TEACHER Sexual Orientation Not on file Last Filed Vital Signs Vital Sign Reading Time Taken Comments Blood Pressure 100/64 01/12/2024 10:53 AM CAREER DISCOVERY TEACHER Pulse 75 01/12/2024 10:53 AM CAREER DISCOVERY TEACHER Temperature 36.3 C (97.34 F) 09/23/2021 11:29 AM CDT Respiratory Rate 16 09/23/2021 11:29 AM CDT Oxygen Saturation 96% 01/12/2024 10:53 AM CAREER DISCOVERY TEACHER Inhaled Oxygen Concentration - - Weight 77.6 kg (171 lb) 01/12/2024 10:53 AM CAREER DISCOVERY TEACHER Height 162.6 cm (5' 4) 01/12/2024 10:53 AM CAREER DISCOVERY TEACHER Body Mass Index 29.35 01/12/2024 10:53 AM CAREER DISCOVERY TEACHER Plan of Treatment Not on file Medical Devices Implanted Type Area Judo Teacher Device Identifier Shelf Expiration Date Model / Serial / Lot [employer] Angio-Seal Vip Bondek-Plus 8fr .038in 70cm Hemostatic Latex Free [id number] - [id number] Implanted:Qty: 1 on 09/16/2021 at [facility] [employer] 06/03/2022 [id number] / / [id number] Procedures Procedure Name Priority Date/Time Associated Diagnosis Comments DEVICE CHECK - REMOTE Routine 05/22/2024 1:17 PM CDT Cardiac pacemaker in situ Paroxysmal atrial fibrillation (HCC) Sinus node dysfunction (HCC) COMPREHENSIVE METABOLIC PANEL Routine 01/12/2024 [facility] current use of amiodarone LIPID PANEL Routine 09/16/2021 8:37 PM CDT HEMOGLOBIN A1C Routine 09/16/2021 8:40 AM CDT from Last 3 Months or Most Recently Relevant to Health Maintenance Results * DEVICE CHECK - REMOTE (05/22/2024 1:17 PM CDT) Anatomical Region Laterality Modality Other Narrative 05/24/2024 7:50 AM CDT Medtronic Janell Dual Pacemaker. Dx; Sinus Node Dysfunction, PAF. DOI 02/17/2022-[facility]. Carelink remote. Routine AAI <> DDD Pacemaker Remote. Transmission attached. Battery status: 3.03 V, 13.2 years remaining battery life to DAMION. Stable lead impedances, pacing and sensing thresholds. Presenting rhythm: A sensed/V sensed AP-0.2%, BAG MACHINE HELPER-< 0.1% No AT/AF episodes noted. No Ventricular high rate episodes detected. Medications: Eliquis 5 mg, amiodarone 100 mg, metoprolol 25 mg See scanned report. Office pacemaker follow up: 08/14/24 CareLink remote f/u 6 months. Sony Chavis RN Amarjit Chun MD [facility] Final Result * (ABNORMAL) Comprehensive metabolic [...] N/A EXTERNAL LAB SCRIBED eGFR in NonAfrican [place] Islander 60 > or = 60 EXTERNAL LAB Blood 01/12/2024 Amarijt Chun MD LAB BLOOD ORDERABLES Isabell chavarria Result EXTERNAL LAB * (ABNORMAL) Lipid panel (09/16/2021 8:37 PM CDT) Cholesterol 189 30 - 199 mg/dL [facility] Comment: Interpretive Data Ages < or [...] revised on 2017. Triglycerides 230(H) <=149 mg/dL [facility] Comment: Interpretive Data Ages < or [...] revised on 2017. HDL 38(L) >=40 mg/dL [facility] Comment: Interpretive Data Ages < or [...] on 2017. LDL, calculated 105 <=129 mg/dL [facility] Comment: Interpretive Data Ages < or [...] revised on 2017. Non-HDL Cholesterol 151 mg/dL [facility] Comment: Interpretive Data Ages < or [...] last revised on 2017. Chol/HDL ratio 5 [facility] Blood 09/16/2021 8:37 PM CDT 09/16/2021 9:02 PM CDT Yari López NP LAB BLOOD ORDERABLES Final Result [facility] Department [place] [address] * (ABNORMAL) Hemoglobin A1c (09/16/2021 8:40 AM CDT) Hgb A1C 10.3(H) 4.0 - 5.6 % [facility] Estimated Average Glucose 249 mg/dL [facility] Comment: The ADA recommends reporting an estimated Average Glucose (eAG) with all Hemoglobin A1c results using the equation derived from a study of 507 normal and diabetic adults. Minority populations were underrepresented and children were not included. (Diabetes Care 2020; 43(S1): S66-S76). The eAG is not equivalent to a fasting glucose. Blood 09/16/2021 8:40 AM CDT 09/16/2021 9:21 AM CDT Yari López FLASH DRIER OPERATOR LAB BLOOD ORDERABLES Final Result [facility] Department [place] [address] from Last 3 Months or Most Recently Relevant to Health Maintenance Insurance MEDICARE [facility] [employer] MEDICARE GOLD MEDICARE [facility] Advance Directives For more information, please contact: [phone] * Full Code (Latest Code Status on File) Date Activated Date Inactivated Comments 09/16/2021 8:18 AM 09/23/2021 9:14 PM Care Teams Second Class Welder Relationship Specialty Start Date End Date Tom Roberson DO [facility] [place] [address] PCP - General Family Medicine 11/22/22
[2024-08-01] MEDS: DOXYCYCLINE 100 MG/NS 100 ML 100 MG/100 ML BAG IVPB (21:29)
[2024-08-01 21:32] LABS: Anion Gap 11 mmol/L (4-12); Blood Urea Nitrogen 29 mg/dL (7-17); CRP < 0.5 mg/dL (<1.0); Calcium 9.9 mg/dL (8.4-10.2); Carbon Dioxide 26 mmol/L (22-30); Chloride 99 mmol/L (98-107); Estimated CRCL calculation 43 ml/min; Estimated Glomerular Filt Rate > 60; Glucose 160 mg/dL (65-110); Potassium 4.8 mmol/L (3.4-5.0); Sodium 136 mmol/L (137-145)
[2024-08-01 21:55] LABS: Erythrocyte Sedimentation Rate 23 mm/hr (0-20)
--- NOTE | 2024-08-01 22:42 | PC.NURSE ---
pt wound irrigated and wrapped.
[2024-08-01 22:46] VITALS: BP 130/60; PULSE 78; RESP 16; TEMP 36.6; O2SAT 100
== END 2024-08-01 22:56 | disposition home or self-care (01) ==
PROVIDERS: Physician Assistant; Emergency Provider Student in an Organized Health Care Education/Training Program; PCP Internal Medicine
DX: S81.801A Unspecified open wound, right lower leg, initial encounter (principal); L08.9 Local infection of the skin and subcutaneous tissue, unspecified; I48.91 Unspecified atrial fibrillation; I35.0 Nonrheumatic aortic (valve) stenosis; I34.0 Nonrheumatic mitral (valve) insufficiency; I10 Essential (primary) hypertension; I25.118 Atherosclerotic heart disease of native coronary artery with other forms of angina pectoris; E11.40 Type 2 diabetes mellitus with diabetic neuropathy, unspecified; J45.909 Unspecified asthma, uncomplicated; K21.9 Gastro-esophageal reflux disease without esophagitis; M17.11 Unilateral primary osteoarthritis, right knee; G25.81 Restless legs syndrome; Z95.0 Presence of cardiac pacemaker; Z87.891 Personal history of nicotine dependence; Z90.49 Acquired absence of other specified parts of digestive tract; Z90.710 Acquired absence of both cervix and uterus; Z79.01 Long term (current) use of anticoagulants; Z79.4 Long term (current) use of insulin; Z79.899 Other long term (current) drug therapy; W10.9XXA Fall (on) (from) unspecified stairs and steps, initial encounter
CPT/HCPCS: 36415; 70450; 73590; 80048; 85025; 85652; 86140; 96365; 99284

== ENCOUNTER 2024-10-28 11:16 | Emergency (ER) | payer MEDICARE, SELFPAY ==
[2024-10-28] VITALS (23 sets, daily range): BP systolic 125–169; BP diastolic 56–119; PULSE 68–96; RESP 11–32; TEMP 36.4–36.9; O2SAT 96–100
--- NOTE | 2024-10-28 11:24 | PC.NURSE ---
pt was given an emesis bag and a blanket in triage for comfort
--- OUTSIDE RECORDS SUMMARY | 2024-10-28 11:57 | XMS_ITS | Encounter Summary ---
Author Organization [facility] Healthcare Address [address] [place] [address] Care Team Providers Care Professional Programmer Analyst Name Role Phone Lyndon Hough DO Primary Care Provider [phone] Encounter Details Date Type Department Care Team (Latest Contact Info) Description 09/10/2024 Results Follow-Up [facility] Medical Group Cardiology [address] [phone] Amarjit Chun MD [address] [facility] [address] [facility] C, [address] [place] [address] Transthoracic Echo (TTE) Complete W Doppler/CF Social History Tobacco Use Types Packs/Day Years [...] on file Legal Sex Female 10:41 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
--- OUTSIDE RECORDS SUMMARY | 2024-10-28 11:57 | XMS_ITS | Clinical Summary ---
Author Organization [facility] [address] Address [address] [place] [address] Care Team Providers Care Bill Hiker Name Role Phone Lyndon Hough DO Primary Care Provider [phone] Allergies Active Allergy Reactions Criticality Noted Date Comments Amoxicillin Nausea & Vomiting Low Cefuroxime Nausea only Low Erythromycin Nausea only Low Medications venlafaxine (EFFEXOR) 75 mg tablet take 1 tablet by oral route 2 times every day with food 0 0 07/11/19 15 Active calcium carbonate-vitami n D3 (CALCIUM 600 + D,3,) 600 mg calcium- 200 unit capsule take 1 by Oral route once 0 0 07/11/19 15 Active multivitamin tablet tablet take 1 tablet by oral route every day with food 0 0 07/11/19 15 Active cyanocobalamin (vitamin B-12) 1,000 mcg tablet take 1 by Oral route every day 0 0 07/11/19 15 Active mometasone-formo terol (DULERA) 100-5 mcg/actuation inhaler inhale 2 puff by inhalation route 2 times every day in the morning and evening 0 Inhaler 0 07/11/19 15 Active albuterol HFA (VENTOLIN HFA) 90 mcg/actuation inhaler inhale 2 puff by inhalation route every 4 - 6 hours as needed 0 Inhaler 0 07/11/19 15 Active pen needle, diabetic (NOVOFINE 30) 30 gauge x 1/3 needle 0 0 11/01/19 15 Active rOPINIRole (REQUIP) 1 mg tablet take 1 tablet by oral route 3 times every day 0 0 11/01/19 15 Active magnesium oxide (MAG-OX) 400 mg (241.3 mg elemental) tablet take 1 tablet by oral route 2 times every day 0 0 04/04/19 17 Active coenzyme Q10 (CO Q-10) 100 mg capsule take 1 by Oral route every day 0 0 07/19/19 17 Active atorvastatin (LIPITOR) 80 mg tablet Take 1 tablet (80 mg total) by mouth daily 30 tablet 11 09/25/19 22 Active HumuLIN R U-500 500 unit/mL (3 mL) CONCENTRATED pen for injection 10/04/19 23 Active semaglutide (OZEMPIC SUBQ) Inject under the skin Active pantoprazole DR (PROTONIX) 40 mg EC tabletIndication s:Gastroesophage al reflux disease TAKE 1 TABLET BY MOUTH EVERY DAY 90 tablet 11/07/19 24 Active amiodarone (PACERONE) 100 mg tablet TAKE 1 TABLET BY MOUTH DAILY 90 tablet 3 04/22/19 25 Active metoprolol tartrate (LOPRESSOR) 25 mg immediate release tablet TAKE 1 TABLET BY MOUTH TWICE A DAY 180 tablet 1 06/06/19 25 Active apixaban (Eliquis) 5 mg tablet TAKE 1 TABLET BY MOUTH TWICE A DAY 60 tablet 10 10/01/19 25 Active apixaban (Eliquis) 5 mg tablet Take 1 tablet (5 mg total) by mouth 2 (two) times a day 60 tablet 3 06/06/19 25 025 Discontinued Active Problems Problem Noted Date Diagnosed Date Nonrheumatic aortic valve stenosis 08/09/2024 shelter current use of amiodarone 10/05/2022 Cardiac pacemaker in situ 02/17/2022 Overview (02/17/2022): Medtronic Janell Dual Pacemaker. Dx; Sinus Node Dysfunction, PAF. DOI 02/17/2022-[employer]. Jimenez. Sheron remote. 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 of [place] heart with stable angina pectoris 11/24/2016 Hyperlipidemia [...] Encounters Date Type Department Care Team Description 09/10/2024 11:15 AM CDT Ancillary Procedure [facility] at [address] [place] [address] Non-rheumatic mitral regurgitation; Nonrheumatic aortic valve stenosis 09/10/2024 Results Follow-Up [facility] [address], [place] [address] Carolyn Zayas MD Transthoracic Echo (TTE) Complete W Doppler/CF 08/21/2024 3:30 PM CDT Ancillary Procedure [facility] [address] [place] [address] [place] [phone] Sinus node dysfunction (HCC); Paroxysmal atrial fibrillation (HCC); Cardiac pacemaker in situ 08/09/2024 11:30 AM CDT Office Visit [facility] [address] [place] [address] [address] [place] [address] Carolyn Zayas MD Coronary artery disease of [place] artery of [place] heart with stable angina pectoris (Primary Dx); Hyperlipidemia associated with type 2 diabetes mellitus (HCC); Non-rheumatic mitral regurgitation; Hypertension associated with diabetes (HCC); Paroxysmal atrial fibrillation (HCC); Nonrheumatic aortic valve stenosis 08/01/2024 Telephone [facility] [address], [place] [address] Carolyn Zayas MD from Last 3 Months Surgical History Surgery [...] Mother Pamela James Asthma Sister 1 Kim Santiago Hearing loss Sister 2 Arlen Miscarriages / Stillbirths Sister 2 Arlen Relation Name Status Comments Father Silvestre Juarez Maternal Grandmother Tonia Mother Pamela James Sister 1 Kmi M Sister 2 Arlen Social History Tobacco [...] on file Legal Sex Female 10:41 PM CONTRACT MANAGER Gender Identity Female 04/29/2020 11:43 AM CONTRACT MANAGER Sexual Orientation Not on file Obstetrics History Last Filed Vital Signs Vital Sign Reading Time Taken Comments Blood Pressure 130/70 08/09/2024 11:40 AM CDT Pulse 76 08/09/2024 11:40 AM CDT Temperature 36.3 C (97.34 F) 09/23/2021 11:29 AM CDT Respiratory Rate 16 09/23/2021 11:29 AM CDT Oxygen Saturation 98% 08/09/2024 11:40 AM CDT Inhaled Oxygen Concentration - - Weight 72.6 kg (160 lb) 08/09/2024 11:40 AM CDT Height 162.6 cm (5' 4) 08/09/2024 11:40 AM CDT Body Mass Index 27.46 08/09/2024 11:40 AM CDT Plan of Treatment Health Maintenance Due Date [...] Td or Tdap) 09/30/2024 09/30/2014 Influenza Vaccine (#1) 2024 , 10/31/2019, 01/02/2019, Additional history exists eGFR 01/11/2025 01/12/2024, 12/0 09/2021, 09/23/2021, Additional history exists Pneumococcal vaccine 65+ Completed 12/02/2016, 12/04 Zoster Vaccine Completed 12/07/2018, 08/28/2018 Medical Devices Implanted Type Area Field Marketing Coordinator Device Identifier Shelf Expiration Date Model / Serial / Lot [employer] Angio-Seal Vip Bondek-Plus 8fr .038in 70cm Hemostatic Latex Free [id number] - [id number] Implanted:Qty: 1 on 09/16/2021 at [facility] [employer] 06/03/2022 [id number] / / [id number] Procedures Procedure Name Priority Date/Time Associated Diagnosis Comments TRANSTHORACIC ECHO (TTE) COMPLETE W DOPPLER/CF WO CONTRAST Routine 09/10/2024 11:51 AM CDT Non-rheumatic mitral regurgitation Nonrheumatic aortic valve stenosis DEVICE CHECK - IN OFFICE Routine 08/21/2024 3:19 PM CDT Sinus node dysfunction (HCC) Paroxysmal atrial fibrillation (HCC) Cardiac pacemaker in situ COMPREHENSIVE METABOLIC PANEL Routine 01/12/2024 terminologist current use of amiodarone LIPID PANEL Routine 09/16/2021 8:37 PM CDT HEMOGLOBIN A1C Routine 09/16/2021 8:40 AM CDT from Last 3 Months or Most Recently Relevant to Health Maintenance Results * TRANSTHORACIC ECHO (TTE) COMPLETE W DOPPLER/CF WO CONTRAST (09/10/2024 11:51 AM CDT) Estimated EF 70 % CONS SCIMAGE EF Mod BP 78 % CONS SCIMAGE Anatomical Region Laterality Modality Ultrasound 09/10/2024 11:2 3 AM CDT Narrative 09/10/2024 3:37 PM CDT [facility] [address], [address], [place] [address] P:[phone] P:[phone] Echocardiographic Report Patient Name: MEGAN WARD E : 1940 Study Date: 09/10/2024 11:23:25 AM Gender: F Manufacturing Shift Supervisor: CHELSEA Location: [facility] Ref Provider: CAROLYN ZAYAS Height(Cm): 163 BSA: 1.81 Weight(Kg): 72.6 Heart Rate: 86 BP: 130 / 70 Quality: Good Order Provider: CAROLYN ZAYAS PROCEDURES: Echocardiographic Report: Transthoracic echocardiogram with complete 2D, M-Mode, and color Doppler examination. With Strain Analysis. INDICATIONS: I34.0 Nonrheumatic mitral (valve) insufficiency and I35.0 Nonrheumatic aortic (valve) stenosis. MEASUREMENTS: 2D/MM Value Range Doppler Value Range EF Mod BP 78 % [ 54 - 74 ] LEIGHTON Vmax 1.83 cm2 [ 2.00 - 4.00 ] EF Teich MM 64 % [ 54 - 74 ] AV Mean PG 9 mmHg Estimated EF 70 % AV Peak Devin 1.96 m/s [ 1.00 - 1.70 ] LV GLS -14.79 % AV Peak PG 15 mmHg LVIDd 2D 4.42 cm [ 3.80 - 5.20 ] AV VTI 34.46 cm LVIDd MM 4.61 cm [ 3.80 - 5.20 ] LVOT Diam 2.04 cm [ 1.70 - 2.10 ] LVIDs 2D 2.89 cm [ 2.20 - 3.50 ] LVOT Peak Devin 1.10 m/s [ 0.70 - 1.10 ] LVIDs MM 3.03 cm [ 2.20 - 3.50 ] LVOT VTI 26.07 cm LVPWd 2D 1.06 cm [ 0.60 - 0.90 ] MV E Peak Devin 0.78 m/s [ 0.60 - 1.30 ] LVPWd MM 1.15 cm [ 0.60 - 0.90 ] MV A Peak Devin 1.12 m/s [ 1.00 - 1.20 ] IVSd 2D 1.03 cm [ 0.60 - 0.90 ] MV Mean PG 2 mmHg [ 0 - 5 ] IVSd MM 0.84 cm [ 0.60 - 0.90 ] MV Decel Time 239 msec [ 104 - 258 ] LA Dimension MM 3.72 cm [ 2.70 - 3.80 ] PV Peak Devin 1.06 m/s [ 0.40 - 0.80 ] AoR Diam MM 3.32 cm [ 2.70 - 3.70 ] TR Peak Devin 2.64 m/s [ 1.00 - 2.80 ] LA Volume 22.92 ml [ 22.00 - 52.00 ] TR Peak PG 28 mmHg LA Volume Index 13 cc/m2 [ 16 - 28 ] RVSP 36.00 mmHg [ 10.00 - 36.00 ] RA Volume 20.03 ml RV S` 0.10 m/s Lateral E` 0.05 m/s [ 0.10 - 0.15 ] Septal E` 0.05 m/s [ 0.08 - 0.15 ] E` 0.05 m/s E/E` 16 Tapse 1.33 cm [ 1.71 - 5.00 ] 2D/MM Value Range Doppler Value Range - FINDINGS: Interpretation Site: Exam was interpreted at [facility]. Left Ventricle: Normal left ventricular size. Mild concentric left ventricular hypertrophy. Impaired diastolic relaxation Grade I. Ejection fraction is measured at 78 %. Ejection Fraction is visually estimated to be 70 %. Global Longitudinal Strain is -15 %. Right Ventricle: Normal right ventricular size. Left Atrium: There is moderate enlargement of left atrium. Right Atrium: The right atrium is normal in size. Atrial Septum: Normal atrial septum. Mitral Valve: Normal appearance of the mitral valve. Moderate mitral annular calcification. Mild mitral valve regurgitation. Aortic Valve: Mild aortic stenosis. Peak Velocity of 1.96 m/s. Peak gradient of 15.0 mmHg. Mean gradient of 9.0 mmHg. Valve area of 1.8 cm2. Aortic cusps appear moderately sclerotic. Trace aortic valve regurgitation. Tricuspid Valve: Normal appearance of the tricuspid valve. Estimated peak RVSP is 36 mmHg. Mild tricuspid regurgitation. Pulmonic Valve: Normal appearance of the pulmonic valve. Pericardium: Normal pericardium with no significant pericardial effusion. Aorta: Normal aortic root. IVC: Normal size and normal respiratory collapse consistent with normal right atrial pressure (<5 mmHg). Pulmonary Artery: Normal pulmonary artery size. CONCLUSIONS: Normal left ventricular size. Mild concentric left ventricular hypertrophy. Impaired diastolic relaxation Grade I. Ejection fraction is measured at 78 %. Ejection Fraction is visually estimated to be 70 %. Global Longitudinal Strain is -15 %. There is moderate enlargement of left atrium. Normal appearance of the mitral valve. Moderate mitral annular calcification. Mild mitral valve regurgitation. Mild aortic stenosis. Peak Velocity of 1.96 m/s. Peak gradient of 15.0 mmHg. Mean gradient of 9.0 mmHg. Valve area of 1.8 cm2. Aortic cusps appear moderately sclerotic. Trace aortic valve regurgitation. Compared with exam from 2022 the left ventricular systolic function is increased and valvular heart disease is stable. Electronically Signed By: Wali Simmons MD, [facility] 09/10/2024 3:36:43 PM CDT Procedure Note Wali Simmons MD - 09/10/2024 [facility] [address], [address], [place] [address] P:[phone] P:[phone] Echocardiographic Report Patient Name: MEGAN WARD E : 1940 Study Date: 09/10/2024 11:23:25 AM Gender: F Manufacturing Shift Supervisor: CHELSEA Location: [facility] Ref Provider: CAROLYN ZAYAS Height(Cm): 163 BSA: 1.81 Weight(Kg): 72.6 Heart Rate: 86 BP: 130 / 70 Quality: Good Order Provider: CAROLYN ZAYAS PROCEDURES: Echocardiographic Report: Transthoracic echocardiogram with complete 2D, M-Mode, and color Dopplerexamination. With Strain Analysis. INDICATIONS: I34.0 Nonrheumatic mitral (valve) insufficiency and I35.0 Nonrheumaticaortic (valve) stenosis. MEASUREMENTS: 2D/MM Value Range Doppler ValueRange EF Mod BP 78 % [ 54 - 74 ] LEIGHTON Vmax 1.83cm2 [ 2.00 - 4.00 ] EF Teich MM 64 % [ 54 - 74 ] AV Mean PG 9mmHg Estimated EF 70 % AV Peak Devin 1.96m/s [ 1.00 - 1.70 ] LV GLS -14.79 % AV Peak PG 15mmHg LVIDd 2D 4.42 cm [ 3.80 - 5.20 ] AV VTI 34.46cm LVIDd MM 4.61 cm [ 3.80 - 5.20 ] LVOT Diam 2.04cm [ 1.70 - 2.10 ] LVIDs 2D 2.89 cm [ 2.20 - 3.50 ] LVOT Peak Devin 1.10m/s [ 0.70 - 1.10 ] LVIDs MM 3.03 cm [ 2.20 - 3.50 ] LVOT VTI 26.07cm LVPWd 2D 1.06 cm [ 0.60 - 0.90 ] MV E Peak Devin 0.78m/s [ 0.60 - 1.30 ] LVPWd MM 1.15 cm [ 0.60 - 0.90 ] MV A Peak Devin 1.12m/s [ 1.00 - 1.20 ] IVSd 2D 1.03 cm [ 0.60 - 0.90 ] MV Mean PG 2mmHg [ 0 - 5 ] IVSd MM 0.84 cm [ 0.60 - 0.90 ] MV Decel Time 239msec [ 104 - 258 ] LA Dimension MM 3.72 cm [ 2.70 - 3.80 ] PV Peak Devin 1.06m/s [ 0.40 - 0.80 ] AoR Diam MM 3.32 cm [ 2.70 - 3.70 ] TR Peak Devin 2.64m/s [ 1.00 - 2.80 ] LA Volume 22.92 ml [ 22.00 - 52.00 ] TR Peak PG 28mmHg LA Volume Index 13 cc/m2 [ 16 - 28 ] RVSP 36.00mmHg [ 10.00 - 36.00 ] RA Volume 20.03 ml RV S` 0.10m/s Lateral E` 0.05 m/s [ 0.10 - 0.15 ] Septal E` 0.05 m/s [ 0.08 - 0.15 ] E` 0.05 m/s E/E` 16 Tapse 1.33 cm [ 1.71 - 5.00 ] 2D/MM Value Range Doppler ValueRange - FINDINGS: Interpretation Site: Exam was interpreted at [facility]. Left Ventricle: Normal left ventricular size. Mild concentric left ventricularhypertrophy. Impaired diastolic relaxation Grade I. Ejection fraction is measured at 78 %.Ejection Fraction is visually estimated to be 70 %. Global Longitudinal Strain is -15 %. Right Ventricle: Normal right ventricular size. Left Atrium: There is moderate enlargement of left atrium. Right Atrium: The right atrium is normal in size. Atrial Septum: Normal atrial septum. Mitral Valve: Normal appearance of the mitral valve. Moderate mitral annularcalcification. Mild mitral valve regurgitation. Aortic Valve: Mild aortic stenosis. Peak Velocity of 1.96 m/s. Peak gradient of 15.0mmHg. Mean gradient of 9.0 mmHg. Valve area of 1.8 cm2. Aortic cusps appearmoderately sclerotic. Trace aortic valve regurgitation. Tricuspid Valve: Normal appearance of the tricuspid valve. Estimated peak RVSP is 36 mmHg.Mild tricuspid regurgitation. Pulmonic Valve: Normal appearance of the pulmonic valve. Pericardium: Normal pericardium with no significant pericardial effusion. Aorta: Normal aortic root. IVC: Normal size and normal respiratory collapse consistent with normal rightatrial pressure (<5 mmHg). Pulmonary Artery: Normal pulmonary artery size. CONCLUSIONS: Normal left ventricular size. Mild concentric left ventricularhypertrophy. Impaired diastolic relaxation Grade I. Ejection fraction is measured at 78 %.Ejection Fraction is visually estimated to be 70 %. Global Longitudinal Strain is -15 %. There is moderate enlargement of left atrium. Normal appearance of the mitral valve. Moderate mitral annularcalcification. Mild mitral valve regurgitation. Mild aortic stenosis. Peak Velocity of 1.96 m/s. Peak gradient of 15.0mmHg. Mean gradient of 9.0 mmHg. Valve area of 1.8 cm2. Aortic cusps appearmoderately sclerotic. Trace aortic valve regurgitation. Compared with exam from 2022 the left ventricular systolic function isincreased and valvular heart disease is stable. Electronically Signed By: Wali Simmons MD, [facility] 09/10/2024 3:36:43 PM CDT Carolyn Zayas MD CV ECHO PROCEDURES Final Result * DEVICE CHECK - IN OFFICE (08/21/2024 3:19 PM CDT) Anatomical Region Laterality Modality Other Narrative 08/23/2024 11:57 AM CDT Medtronic Guin Dual Pacemaker. Dx; Sinus Node Dysfunction, PAF. [facility] [employer] remote. Supervising MD: Dr Falcon. Left pectoral incision well approximated. No redness, drainage, or edema noted. Office AAI<>DDD Pacemaker evaluation demonstrated appropriate device function. Battery function-3.03V, 12.9 years remaining battery longevity to DAMION. Appropriate lead measurements noted. Presenting rhythm-ASVS (SR). AP-0.4%, E COMMERCE MARKETING ANALYST-<0.1%. No Atrial high rate episodes noted. No Ventricular high rate episodes noted. Medications; Eliquis, Amiodarone, and Toprol XL. No programming changes made to device settings. See scanned report. Office pacemaker f/u 12/24/2025. [employer]link remote f/u 09/26/2024. Belkys Pavon, RN Carolyn Zayas MD CV [facility]ARD[facility] Final Result * (ABNORMAL) Comprehensive metabolic [...] N/A EXTERNAL LAB SCRIBED eGFR in NonAfrican Croatian 60 > or = 60 EXTERNAL LAB Blood 01/12/2024 us Carolyn Zayas MD LAB BLOOD ORDERABLES Isabell chavarria Result EXTERNAL LAB * (ABNORMAL) Lipid panel (09/16/2021 8:37 PM CDT) Cholesterol 189 30 - 199 mg/dL [facility] Comment: Interpretive Data Ages < [...] revised on 2017. Triglycerides 230(H) <=149 mg/dL [facility] Comment: Interpretive Data Ages < [...] revised on 2017. HDL 38(L) >=40 mg/dL [facility] Comment: Interpretive Data Ages < [...] on 2017. LDL, calculated 105 <=129 mg/dL [facility] Comment: Interpretive Data Ages < [...] revised on 2017. Non-HDL Cholesterol 151 mg/dL [facility] Comment: Interpretive Data Ages < [...] last revised on 2017. Chol/HDL ratio [address] [facility] Blood 09/16/2021 8:37 PM CDT 09/16/2021 9:02 PM CDT Yari López NP LAB BLOOD ORDERABLES Final Result Performing Organization Address [facility] de Phone Number [facility] [place] [address] * (ABNORMAL) Hemoglobin A1c (09/16/2021 8:40 AM CDT) Hgb A1C 10.3(H) 4.0 - 5.6 % [facility] Estimated Average Glucose 249 mg/dL [facility] Comment: The ADA recommends reporting [...] López NP LAB BLOOD ORDERABLES Final Result Performing Organization Address [facility] de Phone Number [facility] [place] [address] from Last 3 Months or Most Recently Relevant to Health Maintenance Insurance MEDICARE [facility] AETNA MEDICARE GOLD MEDICARE [facility] Advance Directives For more information, please contact: [phone] * Full Code (Latest Code Status on File) Date Activated Date Inactivated Comments 09/16/2021 8:18 AM 09/23/2021 9:14 PM Care Teams Bill Hiker Relationship Specialty Start Date End Date Lyndon Hough DO [facility] [facility] [place] [address] [address] PCP - General Internal Medicine 08/09/24
--- OUTSIDE RECORDS SUMMARY | 2024-10-28 14:12 | XMS_ITS | Clinical Summary ---
Author Organization [facility] [address] Address [address] [place] [address] Care Team Providers Care Transit Mechanic Name Role Phone Lyndon Hough DO Primary Care Provider [phone]- [phone] Allergies Active Allergy Reactions Criticality Noted Date [...] Diagnosed Date Nonrheumatic aortic valve stenosis 08/09/2024 care home current use of amiodarone 10/05/2022 Cardiac pacemaker [...] artery disease of n ative artery of chenega heart with stable angina pectoris 11/24/2016 Hyperlipidemia [...] Description 09/10/2024 11:15 AM CDT Ancillary Procedure [facility] Cardiology at [address] [place] [address] Non-rheumatic mitral regurgitation; Nonrheumatic aortic valve stenosis 09/10/2024 Results Follow-Up [facility] Cardiology [address] [facility] [address] [address] Carolyn Zayas MD Transthoracic Echo (TTE) Complete W Doppler/CF 08/21/2024 3:30 PM CDT Ancillary Procedure [facility] Cardiology [address] [place] [address] [place] [phone] Sinus node dysfunction (HCC); Paroxysmal atrial fibrillation (HCC); Cardiac pacemaker in situ 08/09/2024 11:30 AM CDT Office Visit [facility] Cardiology [address] [place] [address] [address] [place] [address] Carolyn Zayas MD 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 (Primary Dx); Hyperlipidemia associated with type 2 diabetes mellitus (HCC); Non-rheumatic mitral regurgitation; Hypertension associated with diabetes (HCC); Paroxysmal atrial fibrillation (HCC); Nonrheumatic aortic valve stenosis 08/01/2024 Telephone [facility] Cardiology [address] [facility] [address] [address] Carolyn Zayas MD from Last [...] on file Legal Sex Female 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 Gender Identity Female 04/29/2020 11:43 AM SHOP MECHANIC HELPER Sexual Orientation Not on file Obstetrics History [...] 12/07/2018, 08/28/2018 Medical Devices Implanted Type Area Packing Clerk Device Identifier Shelf Expiration Date Model / Serial / Lot Inquirly Angio-Seal Vip Bondek-Plus 8fr .038in 70cm Hemostatic Latex Free [id number] - [id number] Implanted:Qty: 1 on 09/16/2021 at [facility] Inquirly 06/03/2022 [id number] / / [id number] Procedures Procedure Name Priority Date/Time Associated Diagnosis Comments TRANSTHORACIC ECHO (TTE) COMPLETE W DOPPLER/CF WO CONTRAST Routine 09/10/2024 11:51 AM CDT Non-rheumatic mitral regurgitation Nonrheumatic aortic valve stenosis DEVICE CHECK - IN OFFICE Routine 08/21/2024 3:19 PM CDT Sinus node dysfunction (HCC) Paroxysmal atrial fibrillation (HCC) Cardiac pacemaker in situ COMPREHENSIVE METABOLIC PANEL Routine 01/12/2024 supervisor intermediates current use of amiodarone LIPID PANEL Routine [...] AM CDT Narrative 09/10/2024 3:37 PM CDT [facility] Cardiology [address], [address], [place] [address] P:[phone] P:[phone] Echocardiographic Report Patient Name: MEGAN WARD E : 1940 Study Date: 09/10/2024 11:23:25 AM Gender: F Contact Center Director: CHELSEA Location: EDW Ref Provider: CAROLYN ZAYAS [...] FINDINGS: Interpretation Site: Exam was interpreted at [facility]. Left Ventricle: Normal left ventricular size. [...] stable. Electronically Signed By: Wali Simmons MD, [facility] 09/10/2024 3:36:43 PM CDT Procedure Note Wali Simmons MD - 09/10/2024 [facility] Cardiology [address] [facility], [address], [place] [address] P:[phone] P:[phone] Echocardiographic Report Patient Name: MEGAN WARD E : 1940 Study Date: 09/10/2024 11:23:25 AM Gender: F Contact Center Director: CHELSEA Location: [facility] Ref Provider: CAROLYN ZAYAS [...] FINDINGS: Interpretation Site: Exam was interpreted at [facility]. Left Ventricle: Normal left ventricular size. [...] stable. Electronically Signed By: Wali Simmons MD, [facility] 09/10/2024 3:36:43 PM CDT Carolyn Zayas MD CV ECHO PROCEDURES Final Result * DEVICE CHECK - IN OFFICE (08/21/2024 3:19 PM CDT) Anatomical Region Laterality Modality Other Narrative 08/23/2024 11:57 AM CDT Medtronic Manley Dual Pacemaker. Dx; Sinus Node Dysfunction, PAF. DOI [facility] remote. Supervising MD: Dr Falcon. Left pectoral incision well approximated. No redness, drainage, or edema noted. Office AAI<>DDD Pacemaker evaluation demonstrated appropriate device function. Battery function-3.03V, 12.9 years remaining battery longevity to DAMION. Appropriate lead measurements noted. Presenting rhythm-ASVS (SR). AP-0.4%, REHABILITATION SERVICES AIDE-<0.1%. No Atrial high rate episodes noted. No Ventricular high rate episodes noted. Medications; Eliquis, Amiodarone, and Toprol XL. No programming changes made to device settings. See scanned report. Office pacemaker f/u 12/24/2025. Carelink remote f/u 09/26/2024. Belkys Pavon, RN Carolyn Zayas MD CV CARDIAC SERVICES [facility] Final Result * (ABNORMAL) Comprehensive metabolic [...] N/A EXTERNAL LAB SCRIBED eGFR in NonAfrican [place] 60 > or = 60 EXTERNAL LAB Blood 01/12/2024 us Carolyn Zayas MD LAB BLOOD ORDERABLES Isabell chavarria Result EXTERNAL LAB * (ABNORMAL) Lipid panel (09/16/2021 8:37 PM CDT) Cholesterol 189 30 - 199 mg/dL [facility] Comment: Interpretive Data Ages < or = [...] on 2017. Triglycerides 230(H) <=149 mg/dL [facility] Comment: Interpretive Data Ages < or = [...] revised on 2017. HDL 38(L) >=40 mg/dL [facility] Comment: Interpretive Data Ages < or = [...] on 2017. LDL, calculated 105 <=129 mg/dL [facility] Comment: Interpretive Data Ages < or = [...] Non-HDL Cholesterol 151 mg/dL [facility] Comment: Interpretive Data Ages < or [...] 2017. Chol/HDL ratio [address] [facility] Blood 09/16/2021 8:37 PM CDT 09/16/2021 9:02 PM CDT Yari López NP LAB BLOOD ORDERABLES Final Result Performing Organization Address [facility] de Phone Number [facility] [place] [address] * (ABNORMAL) Hemoglobin A1c (09/16/2021 8:40 AM CDT) Hgb A1C 10.3(H) 4.0 - 5.6 % [facility] Estimated Average Glucose 249 mg/dL [facility] Comment: The ADA recommends reporting an estimated [...] BLOOD ORDERABLES Final Result Performing Organization Address [facility] de Phone Number [facility]OX [facility] [employer] [place] [address] from Last 3 Months or Most Recently Relevant to Health Maintenance Insurance MEDICARE ON LICENSE OF [facility] [employer] MEDICARE GOLD MEDICARE ON LICENSE OF [facility] Advance Directives For more information, please contact: [phone] * Full Code (Latest Code Status on File) Date Activated Date Inactivated Comments 09/16/2021 8:18 AM 09/23/2021 9:14 PM Care Teams Transit Mechanic Relationship Specialty Start Date End Date Lyndon Hough DO [facility] [address] [address] PCP - General Internal Medicine 08/09/24
--- OUTSIDE RECORDS SUMMARY | 2024-10-28 14:12 | XMS_ITS | Encounter Summary ---
Author Organization [facility] Address [address] [place] [address] Care Team Providers Care Emergency Nurse Name Role Phone Lyndon Hough DO Primary Care Provider [phone]- [phone] Encounter Details Date Type Department Care Team (Latest Contact Info) Description 09/10/2024 Results Follow-Up [facility] Cardiology [address] [address] Amarjit Chun MD [address] [facility] [address] [place] [address] [facility] C, [address] [place] [address] Transthoracic Echo (TTE) Complete W [...] on file Legal Sex Female 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
[2024-10-28] MEDS: PANTOPRAZOLE SODIUM IV 40 MG VIAL IV PUSH (14:22)
--- NOTE | 2024-10-28 14:24 | ED.NAVMDI ---
HPI - Nausea/Vomiting/Diarrhea General Chief complaint: Nausea/Vomiting/Diarrhea Stated complaint: N/V Time Seen by Provider: 10/28/24 13:33 History of Present Illness HPI Narrative: 84-year-old female history of CAD, CVA, DM T2 managed with insulin presents to ER complaining of nausea vomiting. Patient states last night she went are B's, and soon afterwards began experiencing multiple episodes of nonbilious, nonbloody vomiting. Patient denies abdominal pain. Denies diarrhea. Denies fevers. Patient was brought in by EMS, and given IV Zofran Related Data Home Medications ?Medication ?Instructions ?Recorded ?Confirmed ?Last Taken ?Type calcium carbonate (Calcium 600) 600 mg PO DAILY 01/16/19 07/22/24 02/16/22 History coenzyme Q10 10 mg capsule (Co 10 mg PO DAILY 01/16/19 07/22/24 02/17/22 History Q-10) magnesium oxide 400 mg PO DAILY 10/26/20 07/22/24 02/16/22 History albuterol sulfate 90 mcg/actuation 2 puff inhalation BID PRN asthma 02/17/22 07/22/24 Unknown History aerosol inhaler fluticasone propionate 50 2 spray intranasal DAILY PRN 02/17/22 07/22/24 Unknown History mcg/actuation nasal Allergic Symptoms spray,suspension metoprolol tartrate 50 mg tablet 25 mg PO Q12HR 02/17/22 07/22/24 02/16/22 History amiodarone 100 mg tablet 100 mg PO DAILY 03/14/22 07/22/24 Unknown History blood-glucose sensor (FreeStyle 09/21/22 07/22/24 Unknown History Guerline 3 Sensor device) Allergies Allergy/AdvReac Type Severity Reaction Status Date / Time clavulanic acid Allergy Intermediate PURITIS Verified 10/28/24 11:45 amoxicillin Allergy Unknown Unknown Verified 10/28/24 11:45 amphetamine Allergy Unknown possible Verified 10/28/24 11:45 cause of pruritis, no rash- mild cefuroxime Allergy Unknown Unknown Verified 10/28/24 11:45 erythromycin base Allergy Unknown Unknown Verified 10/28/24 11:45 lodoxamide Allergy Unknown Nausea Verified 10/28/24 11:45 Avoid Medications that AdvReac Intermediate Other Uncoded 10/28/24 11:45 prolong QT Intervals Review of Systems Review of Systems: All systems reviewed & are unremarkable except as noted in HPI and below PMFSH Past Medical History Medical History History of stroke with residual deficit Pacemaker Pure hyperglyceridemia Other seborrheic keratosis Open wound of index finger Localized dermatitis Dysfunction of left eustachian tube BMI 33.0-33.9,adult Hypokalemia Mitral insufficiency and aortic stenosis echo 10-21 moderate ID and 1.82 cm2 Post-menopausal Diabetic neuropathy Metabolic syndrome Cataracts, bilateral SOB (shortness of breath) Hypertension Asthma Arthritis Back pain Trigger finger, left middle finger Atherosclerotic heart disease of [place] coronary artery with other forms of angina pectoris Gastro-esophageal reflux disease without esophagitis Major depressive disorder, single episode, unspecified Pure sensory lacunar syndrome Restless legs syndrome Type 2 diabetes mellitus with hyperglycemia Surgical History Surgical History H/O major cardiovascular surgery pacemaker Hx of cholecystectomy History of appendectomy History of carpal tunnel release H/O sinus surgery H/O: hysterectomy H/O cardiac catheterization Family History Family History Mother Hypertension Other Asthma Family history of arthritis Social History Social History Smoking packs per day: 0.5 Smoking cigarettes per day: 10.0 Years smoked: 20 Smoking pack-years: 10.00 Smoking status: Former smoker Alcohol intake: former Substance use: never Lack of Transportation: No Lack of Food: Never True Current Housing: I Have Housing Concerned About Future Housing: No Difficulty Paying Gas/Electric Bills: No Difficulty Paying for Meds: No Currently Unemployed: No Education: Associate Degree Difficulty w/ Childcare or Family Care: No Living arrangements: with family Occupation/Education: retired Gender identity (if verbalized by the patient): Female Sexual Orientation (if Verbalized by the Patient): Straight or Heterosexual Spiritual care concerns: No Agree to blood products: Yes Exam Const: General: cooperative, no acute distress, well developed, alert and awake HENMT: Head: normal to inspection Face and sinus: normal facial exam Mouth: Yes dry mucous membranes Throat: posterior oropharynx normal Eyes: General: appearance normal, both eyes and all related structures Chest: Chest palpation & inspection: normal inspection of the chest Resp: Effort & Inspection: normal respiratory effort GI: Auscultation: normal bowel sounds and normoactive bowel sounds Skin: General skin exam: normal color, no rashes or lesions noted and turgor normal Neuro: General: oriented to person, oriented to place, oriented to time, patient oriented x3 and moves all extremities Extrem: General: normal to inspection, full ROM and capillary refill normal Psych: Appearance: grossly normal and well kempt Mental Status: mental status grossly normal Speech and movement: Normal speech and movement present Course Vital Signs Vital signs: Vital Signs Temperature 36.4 C 10/28/24 11:43 Pulse Rate 83 10/28/24 11:43 Respiratory Rate 16 10/28/24 11:43 Blood Pressure 142/69 H 10/28/24 11:43 Pulse Oximetry 100 10/28/24 11:43 Temperature 36.4 C 10/28/24 11:43 Pulse Rate 88 10/28/24 16:31 Respiratory Rate 14 10/28/24 16:31 Blood Pressure 137/68 10/28/24 16:31 Pulse Oximetry 97 10/28/24 16:16 MDM - Nausea/Vomiting/Diarrhea MDM Narrative Medical decision making narrative: In summary: 84-year-old female presents to the ER complaining of acute onset nausea vomiting last night. In labs reassuring. Her initial blood sugar was over 300. Patient was given 1 L of fluid, Zofran for mass, and droperidol. On reexamination, patient reported nausea and vomiting had been resolved. Repeat blood sugar was 221. Patient able to tolerate p.o. fluids prior to discharge. Patient discharged home stable condition with Rx for Zofran Lab Data 10/28/24 14:39 10/28/24 14:39 Labs: Lab Results 10/28/24 10/28/24 Range/Units 14:39 16:40 WBC 8.7 (4.5-10.0) K/mm3 RBC 4.60 (4.2-5.4) M/mm3 Hgb 13.4 (12.0-15.0) g/dL Hct 38.5 (37.0-47.0) % MCV 83.7 (80-100) fl MCH 29.1 (26-34) pg MCHC 34.8 (32-36) g/dl RDW 12.4 (11.5-14.5) % Plt Count 207 (150-375) k/mm3 MPV 9.4 (7.4-10.4) fl Immature Gran % (Auto) 0.3 (0-0.5) % Neut % (Auto) 85.1 H (45.5-73.1) % Lymph % (Auto) 11.2 L (18.3-44.2) % [place] % (Auto) 3.0 (2.6-8.5) % Eos % (Auto) 0.1 (0-4.4) % Baso % (Auto) 0.3 (0.2-1.2) % Lymph # (Auto) 0.97 (0.9-3.2) K/mm3 [place] # (Auto) 0.3 (0.1-0.6) K/mm3 Eos # (Auto) 0.0 (0-0.3) K/mm3 Baso # (Auto) 0.0 (0.0-0.1) K/mm3 Abs Immat Gran (auto) 0.03 (0.00-0.031) K/mm3 Absolute Neuts (auto) 7.4 H (1.3-6.7) K/mm3 Absolute Nucleated RBC 0.000 (0.0-0.012) K/mm3 Nucleated RBC % 0.0 (0.0-0.2) % Sodium 138 (137-145) mmol/L Potassium 4.0 (3.4-5.0) mmol/L Chloride 102 (98-107) mmol/L Carbon Dioxide 24 (22-30) mmol/L Anion Gap 12 (4-12) mmol/L BUN 28 H (7-17) mg/dL Creatinine 0.77 (0.7-1.0) mg/dL Estim Creat Clear Calc Not Reportable Estimated GFR > 60 (59 - ) Glucose 310 H (65-110) mg/dL POC Capillary Glucose 221 H (65-105) mg/dl Calcium 9.9 (8.4-10.2) mg/dL Total Bilirubin 0.6 (0.2-1.3) mg/dL AST 40 H (14-36) U/L ALT 40 H (6-35) U/L Alkaline Phosphatase 113 (38-126) U/L Total Protein 8.3 H (6.3-8.2) g/dL Albumin 4.5 (3.5-5.1) g/dL Lipase 97 (23-300) U/L Discharge Plan Discharge Clinical Impression: Gastroenteritis, Vomiting Patient Disposition: Home Condition: Stable Instructions: Antibiotic Form, Gastroenteritis (ED) Patient Language: French Prescriptions: New ondansetron 4 mg tablet,disintegrating 4 mg PO Q8H Qty: 14 0RF No Action calcium carbonate [Calcium 600] 600 mg calcium (1,500 mg) tablet 600 mg PO DAILY coenzyme Q10 [Co Q-10] 10 mg capsule 10 mg PO DAILY magnesium oxide 400 mg magnesium capsule 400 mg PO DAILY nitroglycerin 0.4 mg tablet, sublingual 0.4 mg SUBLINGUAL Q5M PRN (Reason: chest pain) Qty: 25 5RF (DME) home nebulizer See Rx Instructions .Route .MEDSUPPLY Qty: 1 0RF Rx Instructions: As directed ipratropium-albuterol 0.5 mg-3 mg(2.5 mg base)/3 mL solution for nebulization 3 ml inhalation QID PRN (Reason: shortness of breath) Qty: 90 0RF amiodarone 100 mg tablet 100 mg PO DAILY (DME) FreeStyle Guerline 3 Sensor Device See Rx Instructions .Route Rx Instructions: As directed insulin regular hum U-500 conc 500 unit/mL (3 mL) insulin pen See Rx Instructions subcut .COMPLEX MDD 140 90 Days Qty: 27 3RF Rx Instructions: 100 units before breakfast and 30 units before dinner subcutaneously; Ozempic 1 mg/dose (4 mg/3 mL) pen injector 1 mg subcut WEEKLY 90 Days Qty: 9 1RF metoprolol tartrate 50 mg tablet 25 mg PO Q12HR albuterol sulfate 90 mcg/actuation HFA aerosol inhaler 2 puff inhalation BID PRN (Reason: asthma) fluticasone propionate 50 mcg/actuation spray,suspension 2 spray NASAL DAILY PRN (Reason: Allergic Symptoms) doxycycline hyclate 100 mg capsule 100 mg PO BID 7 Days Qty: 14 0RF (DME) lancets 33 gauge misc See Rx Instructions .ROUTE .MEDSUPPLY Qty: 200 3RF Rx Instructions: use to check BS 2 times daily E11.65 insulin dependent (DME) Contour Next Test Strips Strip See Rx Instructions .ROUTE .COMPLEX Qty: 200 0RF Dose Instruction: USE 2 TIMES DAILY Rx Instructions: USE 2 TIMES DAILY Eliquis 5 mg tablet 5 mg PO Q12HR 30 Days Qty: 60 3RF budesonide-formoterol [Symbicort] 160-4.5 mcg/actuation HFA aerosol inhaler 2 puff inhalation DAILY Qty: 10.2 0RF atorvastatin 80 mg tablet 80 mg PO DAILY Qty: 90 1RF ropinirole 1 mg tablet 3 mg PO QHS Qty: 270 1RF insulin degludec [Tresiba FlexTouch U-200] 200 unit/mL (3 mL) insulin pen 15 unit subcut DAILY 90 Days Qty: 9 1RF pen needle, diabetic 31 gauge x 3/16 needle See Rx Instructions .ROUTE .COMPLEX Qty: 400 4RF Dose Instruction: USE TO INJECT ONCE DAILY Rx Instructions: USE TO INJECT 3-4 times daily venlafaxine 75 mg tablet 75 mg PO BID Qty: 180 1RF pantoprazole 40 mg tablet,delayed release (DR/EC) 40 mg PO QAM Qty: 90 0RF Follow-up/Referrals: Lyndon Hough DO [Primary Care Provider, Internal Medicine] Time of Disposition: 16:56
[2024-10-28] MEDS: SODIUM CHLORIDE 0.9% IV 1,000 ML 999 ML IV CONT (14:45)
[2024-10-28 14:46] LABS: Hematocrit 38.5 % (37.0-47.0); Hemoglobin 13.4 g/dL (12.0-15.0); Immature Granulocyte Percent A 0.3 % (0-0.5); Lymphocytes Absolute Auto 0.97 K/mm3 (0.9-3.2); Mean Corpuscular HGB Conc 34.8 g/dl (32-36); Mean Corpuscular Hemoglobin 29.1 pg (26-34); Mean Corpuscular Volume 83.7 fl (80-100); Nucleated Red Blood Cells Absolute Auto 0.000 K/mm3 (0.0-0.012); Nucleated Red Blood Cells Perc 0.0 % (0.0-0.2); Platelet Count Result 207 k/mm3 (150-375); Red Blood Count 4.60 M/mm3 (4.2-5.4); White Blood Count 8.7 K/mm3 (4.5-10.0)
[2024-10-28] MEDS: FAMOTIDINE 20 MG/2 ML VIAL IV PUSH (14:47)
[2024-10-28 14:59] LABS: Alanine Aminotransferase 40 U/L (6-35); Albumin Level 4.5 g/dL (3.5-5.1); Alkaline Phosphatase 113 U/L (38-126); Anion Gap 12 mmol/L (4-12); Aspartate Amino Transferase 40 U/L (14-36); Bilirubin,Total 0.6 mg/dL (0.2-1.3); Blood Urea Nitrogen 28 mg/dL (7-17); Calcium 9.9 mg/dL (8.4-10.2); Carbon Dioxide 24 mmol/L (22-30); Chloride 102 mmol/L (98-107); Estimated Glomerular Filt Rate > 60; Glucose 310 mg/dL (65-110); Lipase 97 U/L (23-300); Potassium 4.0 mmol/L (3.4-5.0); Sodium 138 mmol/L (137-145); Total Protein 8.3 g/dL (6.3-8.2)
[2024-10-28] MEDS: SODIUM CHLORIDE 0.9% IV 1,000 ML 999 ML (18:31)
== END 2024-10-28 19:56 | disposition home or self-care (01) ==
PROVIDERS: Emergency Medicine; Emergency Provider Nurse Practitioner Family; PCP Internal Medicine
DX: K52.9 Noninfective gastroenteritis and colitis, unspecified (principal); I25.118 Atherosclerotic heart disease of native coronary artery with other forms of angina pectoris; I34.0 Nonrheumatic mitral (valve) insufficiency; I35.0 Nonrheumatic aortic (valve) stenosis; I69.30 Unspecified sequelae of cerebral infarction; E11.40 Type 2 diabetes mellitus with diabetic neuropathy, unspecified; J45.909 Unspecified asthma, uncomplicated; M19.90 Unspecified osteoarthritis, unspecified site; K21.9 Gastro-esophageal reflux disease without esophagitis; G25.81 Restless legs syndrome; F32.9 Major depressive disorder, single episode, unspecified; Z87.891 Personal history of nicotine dependence; Z90.49 Acquired absence of other specified parts of digestive tract; Z90.710 Acquired absence of both cervix and uterus; Z79.4 Long term (current) use of insulin; Z79.01 Long term (current) use of anticoagulants; Z79.899 Other long term (current) drug therapy; Z79.85 Long-term (current) use of injectable non-insulin antidiabetic drugs
CPT/HCPCS: 36415; 80053; 82948; 83690; 85025; 96361; 96374; 96375; 99284; J1790; J2470; J7030

== ENCOUNTER 2025-01-06 15:33 | Outpatient (CLI) | payer MEDICARE, SELFPAY ==
--- OUTSIDE RECORDS SUMMARY | 2025-01-06 15:50 | XMS_ITS | Clinical Summary ---
Author Organization [facility] [address] Address [address] [place] [address] Care Team Providers Care Calibration Tester Name Role Phone Lyndon Hough DO Primary Care Provider Allergies Active Allergy Reactions Criticality Noted Date [...] MOUTH DAILY 90 tablet 3 5 Active apixaban (Eliquis) 5 mg tablet TAKE 1 TABLET BY MOUTH TWICE A DAY 60 tablet 10 5 Active metoprolol tartrate (LOPRESSOR) 25 mg immediate release tablet TAKE 1 TABLET BY MOUTH TWICE A DAY 180 tablet 1 5 Active Active Problems Problem Noted Date Diagnosed Date Nonrheumatic aortic valve stenosis 08/09/2024 roasterman current use of amiodarone 10/05/2022 Cardiac pacemaker in situ 02/17/2022 Overview (02/17/2022): Medtronic [place] Dual Pacemaker. Dx; Sinus Node Dysfunction, PAF. DOI 02/17/2022-[facility]. [facility]. 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 of [place] heart with stable angina pectoris 11/24/2016 Hyperlipidemia associated with type 2 diabetes lang rodriguez 11/24/2016 Chronic stable angina 11/24/2016 Non-rheumatic mitral [...] Encounters Date Type Department Care Team Description 11/27/2024 7:30 AM CDT Ancillary Procedure [facility] Card[facility] [address] [place] [phone] Cardiac pacemaker in situ; Paroxysmal atrial fibrillation [...] reflux disease) Arthritis Asthma Depression Diabetes mellitus Migraines Heart disease Hypertension Sleep apnea Family History Medical History Relation Name Comments Cancer Father Silvestre Juarez Liver cancer Father Silvestre Juarez Cancer, liver; Cause of : Cancer, liver Stroke Maternal Grandmother Tonia Arthritis Mother Lang James Cancer Mother Lang James Cancer, unknown ; Cause of : Cancer, unknown Heart disease Mother Lang James Hypertension Mother Lang James Asthma Sister 1 Kim Santiago Hearing loss Sister 2 Arlen Miscarriages / Stillbirths Sister 2 Arlen Relation Name Status Comments Father Silvestre Juarez Maternal Grandmother Tonia Mother Lang James Sister 1 Kim Santiago Sister 2 [...] on file Legal Sex Female 10:41 PM [employer] Gender Identity Female 04/29/2020 11:43 AM [employer] Sexual Orientation Not on file Last Filed [...] history exists Fall Risk Assessment 09/23/2022 09/23/2021 DTaP/Tdap/Td Vaccine (2 - Td or Tdap) 09/30/2024 09/30/2014, 12/29/2009, 04/08/1998 Covid-19 Vaccine (5 - 2024-2 6 season) 2024 06/25/2021, 12/01/2020, 05/07/2020, Additional history exists Influenza Vaccine (#1) 2024 , 11/16/2020, 10/31/2019, Additional history exists eGFR 01/11/2025 01/12/2024, 09/2021, 09/23/2021, Additional history exists Pneumococcal vaccine 65+ Completed 017, 12/18/2014, 12/17/2014, Additional history exists Zoster Vaccine Completed 12/07/2018, 08/05, 09/11/2007 Medical Devices Implanted Type Area Rug Inspector Device Identifier Shelf Expiration Date Model / Serial / Lot [employer] Angio-Seal Vip Bondek-Plus 8fr .038in 70cm Hemostatic Latex Free [id number] - [id number] Implanted:Qty: 1 on 09/16/2021 at [facility] [employer] 06/03/2022 [id number] / / [id number] Procedures Procedure Name Priority Date/Time Associated Diagnosis Comments DEVICE CHECK - REMOTE Routine 11/28/2024 2:17 PM CDT Cardiac pacemaker in situ Paroxysmal atrial fibrillation (HCC) Sinus node dysfunction (HCC) COMPREHENSIVE METABOLIC PANEL Routine 01/12/2024 roasterman current use of amiodarone LIPID PANEL Routine 09/16/2021 8:37 PM CDT HEMOGLOBIN A1C Routine 09/16/2021 8:40 AM CDT from Last 3 Months or Most Recently Relevant to Health Maintenance Results * DEVICE CHECK - REMOTE (11/28/2024 2:17 PM CDT) Anatomical Region Laterality Modality Other Narrative 12/17/2024 3:31 PM CDT Medtronic [place] Dual Pacemaker. Dx; Sinus Node Dysfunction, PAF. DOI 02/17/2022-[employer] [facility]. [facility] remote. Routine AAI <> DDD Pacemaker Remote. Transmission attached. Battery status: 3.03 V , 12.7 years remaining battery life to [employer]. Stable lead impedances, pacing and sensing thresholds. Presenting rhythm: Sinus tachycardia AP-0.2%, MOISTURE TESTER-< 0.1% 2 AT/AF episodes noted, longest episode was 1 hour and 19 minutes in duration, IEGM demonstrates AFib. AF [place] < 0.1%. No Ventricular high rate episodes detected. Medications: Amiodarone 100 mg, apixaban 5 mg, metoprolol 25 mg See scanned report. Office pacemaker follow up: 12/24/25 [facility] remote f/u 03/05/25. Sony Chavis RN Amarjit Chun MD [facility] Final Result * (ABNORMAL) Comprehensive metabolic panel [...] - 36 Units/L EXTERNAL LAB SCRIBED eGFR N/A N/A EXTERNAL LAB SCRIBED eGFR 60 > or = 60 EXTERNAL LAB Blood 01/12/2024 us Amarjit Chun MD LAB BLOOD ORDERABLES Isabell chavarria Result EXTERNAL LAB * (ABNORMAL) Lipid panel (09/16/2021 8:37 PM CDT) Cholesterol 189 30 - 199 mg/dL [facility] Comment: Interpretive Data Ages < or = [...] on 2017. Triglycerides 230(H) <=149 mg/dL [facility] Comment: Interpretive Data Ages < or = [...] revised on 2017. HDL 38(L) >=40 mg/dL [facility] Comment: Interpretive Data Ages < or = [...] 2017. LDL, calculated 105 <=129 mg/dL [facility] Comment: Interpretive Data Ages < or = [...] revised on 2017. Non-HDL Cholesterol 151 mg/dL [facility] Comment: Interpretive Data Ages < or = [...] last revised on 2017. Chol/HDL ratio 5 [facility] Blood 09/16/2021 8:37 PM CDT 09/16/2021 9:02 PM CDT us Yari López NP LAB BLOOD ORDERABLES Final Result [facility] Department [place] [address] * (ABNORMAL) Hemoglobin A1c (09/16/2021 8:40 AM CDT) Hgb A1C 10.3(H) 4.0 - 5.6 % [facility] Estimated Average Glucose 249 mg/dL [facility] Comment: The ADA recommends reporting an estimated [...] NP LAB BLOOD ORDERABLES Final Result [facility] Department [place] [address] from Last 3 Months or Most Recently Relevant to Health Maintenance Insurance MEDICARE [facility] AETNA MEDICARE GOLD MEDICARE [facility] Advance Directives For more information, please contact: [phone] * Full Code (Latest Code Status on File) Date Activated Date Inactivated Comments 09/16/2021 8:18 AM 09/23/2021 9:14 PM Care Teams Calibration Tester Relationship Specialty Start Date End Date Lyndon Hough DO PCP - General Internal Medicine 08/09/24
[2025-01-06 19:17] LABS: Hematocrit 39.4 % (37.0-47.0); Hemoglobin 13.2 g/dL (12.0-15.0); Immature Granulocyte Percent A 0.4 % (0-0.5); Lymphocytes Absolute Auto 2.44 K/mm3 (0.9-3.2); Mean Corpuscular HGB Conc 33.5 g/dl (32-36); Mean Corpuscular Hemoglobin 28.6 pg (26-34); Mean Corpuscular Volume 85.5 fl (80-100); Nucleated Red Blood Cells Absolute Auto 0.000 K/mm3 (0.0-0.012); Nucleated Red Blood Cells Perc 0.0 % (0.0-0.2); Platelet Count Result 251 k/mm3 (150-375); Red Blood Count 4.61 M/mm3 (4.2-5.4); White Blood Count 8.5 K/mm3 (4.5-10.0)
[2025-01-06 19:25] LABS: Alanine Aminotransferase 26 U/L (6-35); Albumin Level 4.3 g/dL (3.5-5.1); Alkaline Phosphatase 100 U/L (38-126); Anion Gap 8 mmol/L (4-12); Aspartate Amino Transferase 50 U/L (14-36); Bilirubin,Total 0.7 mg/dL (0.2-1.3); Blood Urea Nitrogen 37 mg/dL (7-17); Calcium 9.7 mg/dL (8.4-10.2); Carbon Dioxide 29 mmol/L (22-30); Chloride 99 mmol/L (98-107); Cholesterol 173 mg/dL (0-200); Estimated Glomerular Filt Rate 49; Glucose 144 mg/dL (65-110); HDL Direct 39 mg/dL; Potassium 4.2 mmol/L (3.4-5.0); Sodium 136 mmol/L (137-145); Total Protein 7.8 g/dL (6.3-8.2); Triglycerides 227 mg/dL (<150)
[2025-01-06 20:00] LABS: Thyroid Stimulating Hormone 1.980 uIU/mL (0.465-4.680)
[2025-01-06 20:14] LABS: MALB Creatinine Ratio 11.7 mg/g (0-30)
[2025-01-06 20:19] LABS: Vitamin B12 752.0 pg/mL (239-931)
[2025-01-06 20:55] LABS: Hemoglobin A1C 8.3 % (<5.7)
== END 2025-01-06 15:34 | disposition home or self-care (01) ==
LOC: ANHGOSHLAB 15:33
PROVIDERS: PCP Internal Medicine; Visit Provider Clinical Nurse Specialist
DX: I11.0 Hypertensive heart disease with heart failure (principal); I50.31 Acute diastolic (congestive) heart failure; E78.2 Mixed hyperlipidemia; E55.9 Vitamin D deficiency, unspecified; E11.59 Type 2 diabetes mellitus with other circulatory complications; E11.69 Type 2 diabetes mellitus with other specified complication; E11.65 Type 2 diabetes mellitus with hyperglycemia; I48.0 Paroxysmal atrial fibrillation; I48.11 Longstanding persistent atrial fibrillation; Z78.0 Asymptomatic menopausal state; E88.810 Metabolic syndrome
CPT/HCPCS: 36415; 80053; 80061; 82043; 82607; 83036; 84443; 85025